=== PATIENT | male | born 1940 | race Caucasian/White ===

== ENCOUNTER 2017-01-21 10:51 | Inpatient (IN) ==
[2017-01-21] MEDS ORDERED: ASPIRIN 325 MG TABLET PO STA (12:02)
--- NOTE | 2017-01-21 12:15 | Emergency Department Note ---
Arrival - Arrival Chief Complaint: Chest Pain Stated Complaint: chest pain ED Nursing Triage Note: Pt c/o CP with SOB since last night. Pt also c/o fall on Saturday night with continued lower back pain. Pt is wearing a heart monitor that was placed . by Dr Hankins's office. Mode of Arrival: Wheelchair Limitations: No Limitations Source: Patient, RN Notes Reviewed Time Seen by Provider: 01/21/17 12:02 - History of Present Illness HPI Narrative: Patient is a 76-year-old white male routinely followed by Dr. Cameron Barbour who is seen today complaining of chest pain and shortness of breath. Chest pain is substernal and sharp. Patient states that he has been short of breath since last night. He has had multiple falls over the last 3-4 days. He states of the fall yesterday he did remember however in review of his old chart on 01/17 the patient had a fall which he did not remember. The patient is presently wearing a 30 day event monitor placed by Dr. Hankins's office. Patient also complains of some low back pain. Patient has a history of diabetes mellitus and hypertension. Patient complains of left lower extremity edema. Onset (ago): day(s) (1) Consistency: constant Severity: moderate Allergies/Adverse Reactions: Allergies Allergy/AdvReac Type Severity Reaction Status Date / Time morphine Allergy Unknown/Unable Verified 12/25/16 13:27 to obtain Home Medications: Home Medications Medication Instructions Recorded Confirmed Type Amlodipine Besylate [Amlodipine 5 mg PO DAILY 12/25/16 01/21/17 History Besylate] Apixaban [Eliquis] 5 mg PO BID 12/25/16 01/21/17 History Bumetanide [Bumetanide] 2 mg PO DAILY 12/25/16 01/21/17 History Lisinopril [Lisinopril] 40 mg PO DAILY 12/25/16 01/21/17 History Metformin HCl [Metformin HCl] 1,000 mg PO BID 12/25/16 01/21/17 History Omeprazole [Omeprazole] 20 mg PO QAM 12/25/16 01/21/17 History Oxybutynin Chloride [Oxybutynin 10 mg PO QAM 12/25/16 01/21/17 History Chloride ER] Potassium Chloride 10 meq PO DAILY 12/25/16 01/21/17 History Ascorbic Acid 500 mg PO DAILY 01/17/17 01/21/17 History Calcium Carbonate/Vitamin D3 1 each PO DAILY 01/17/17 01/21/17 History [Calcium 1,000 + D3 Caplet] Ferrous Sulfate 325 mg PO DAILY 01/17/17 01/21/17 History Magnesium Oxide [Magox 400] 800 mg PO BID 01/17/17 01/21/17 History Multivitamin (Centrum) [Centrum 1 tablet PO DAILY 01/17/17 01/21/17 History Tab] Nitroglycerin Sl Tab [Nitrostat] 0.4 mg SL Q5M PRN 01/17/17 01/21/17 History Tamsulosin HCl [Tamsulosin HCl] 0.4 mg PO DAILY 01/17/17 01/21/17 History metOLazone [Metolazone] 2.5 mg PO QAM 01/17/17 01/21/17 History Review of System - Review of System 12 point system: reviewed and no additional remarkable complaints except as stated - Review of System Constitutional: Absent: chills, fever Cardiovascular: Present: chest pain, dyspnea on exertion, edema Medical,Surgical,& Family Hx - Medical History Cardio: History of: Cardiac Dysrhythmia (a-fib), Hypertension Endocrine: History of: Diabetes Mellitus (NIDDM) Gastrointestinal: History of: GERD Musculoskeletal: History of: Back/Neck Problems (chronic back pain), Musculoskeletal Problems (arthritis) Hematology: History of: Blood Disorders (thrombocytopenia) - Surgical History HEENT Surgeries: Surgical HX of: Tonsilectomy & Adenoidectomy Abdominal Surgeries: Surgical HX of: Appendectomy Orthopedic Surgeries: Surgical HX of;: Orthopedic Surgery (back surgery 2013), Total Knee Replacement (bilateral 2009) - Family History Family History: Reports;: Family Heart Disease, Family Hypertension - Social History Smoking Status: Never smoker Exam Vital Signs: Vital Signs Temperature 96.9 F L 01/21/17 13:20 Pulse Rate 84 01/21/17 13:20 Respiratory Rate 18 01/21/17 13:20 Blood Pressure 114/68 01/21/17 13:20 O2 Sat by Pulse Oximetry 99 01/21/17 10:53 GENERAL: This is a well-nourished well-developed white male, chronically ill- appearing, in no apparent distress. VITAL SIGNS: Reviewed HEENT: Head is atraumatic and normocephalic. Pupils are equal round react to light. Extraocular movements are intact. Oropharynx is benign with moist mucous membranes. NECK: Neck is soft and supple without tenderness. There are no masses. There is no lymphadenopathy. LUNGS: Lungs are clear to auscultation. Chest rises symmetrically. There is no chest wall tenderness. CV: Heart is regular rate and rhythm without murmurs rubs or gallops. ABDOMEN: Abdomen is soft, nontender to palpation. There are no abdominal abnormal masses palpated. There is no organomegaly. Bowel sounds are present and active. SKIN: Skin is warm and dry. No rash. EXTREMITIES: Patient has full range of motion without tenderness. There is 2-3 + pitting pedal edema of left lower extremity. NEUROLOGIC: Awake alert and oriented 4. Cranial nerves II through XII are grossly intact. Motor is 5 over 5 in all extremities bilaterally. Course - Consultations Consultation #1: Discussed with Dr. Barbour. Patient will be admitted to their service. Initial orders written for him. He will assume patient's care upon arrival to the pop. Time: 14:58 Results - Labs CBC & BMP: 01/21/17 13:00 01/21/17 12:45 Lab Results: I have reviewed the patients labs - EKG EKG results: interpreted by ERMD - Impressions EKG: Supraventricular rhythm with a rate of 84, low voltage QRS, nonspecific ST- T wave changes. - Diagnostic Findings Procedure: Chest x-ray: image reviewed by me (No infiltrates, no pleural effusions.), X-ray: image reviewed by me (Lumbosacral spine x-ray: Severe DDD of lumbosacral spine with old fracture of L3 and old kyphoplasty.) Disposition Clinical Impression: Chest pain, History of syncope, Diabetes mellitus, Hypokalemia Case discussed with: patient, patient's family Disposition: Still a Patient Condition: Stable
--- NOTE | 2017-01-21 12:44 | XRay Report ---
XR chest 1V Indication: Chest pain, shortness of breath Comparison: 17 January 2017 Findings: The heart and mediastinum are normal in size and configuration. The pulmonary vascularity is normal in caliber. No lung infiltrates, effusions, pneumothorax or other abnormality is demonstrated. Impression: No acute cardiopulmonary disease. PROCEDURE INTERPRETED AT [facility] DEPARTMENT OF RADIOLOGY Final Report Signed by: Dr. Ever Castaneda
--- NOTE | 2017-01-21 12:48 | XRay Report ---
XR lumbar spine complete Indication: Back pain Comparison: 05 August 2015 Findings: Previous fracture with cemented fixation is present involving the L3 vertebra stable in appearance. No other fracture is seen. Vertebral body heights and alignment are normal. There is loss of disc space and degenerative change moderate at T12-L1. There is moderate disc height loss and degenerative changes at L2-3. Mild changes are present at other levels. Large amount of facet joint degenerative change is seen in the lower lumbar spine. Impression: Previous compression fracture and degenerative changes as described above. PROCEDURE INTERPRETED AT [facility] [place] DEPARTMENT OF RADIOLOGY Final Report Signed by: Dr. Ever Castaneda
[2017-01-21 13:06] LABS: Basophils % 0.7 % (0.0-0.8); Eosinophils # 0.1 10*3/uL (0.0-0.87); Eosinophils % 2.2 % (0.00-10.9); Hemoglobin 14.3 GM/DL (14.0-18.0); Immature Granulocytes % 0.4 %; Immature Granulocytes Absolute 0.02 #; Lymphocytes # 0.6 10*3/uL (1.4-4.0); Lymphocytes % 12.5 % (21.2-54.2); Mean Corpuscular HGB Conc 35.8 GM/DL (32-36); Mean Corpuscular Hemoglobin 33 PG (27-34); Mean Corpuscular Volume 91.3 FL (87-102); Mean Platelet Volume 10.1 FL (9.6-12.0); Monocytes # 0.6 10*3/uL (0.11-0.8); Monocytes % 14.1 % (1.7-12.7); Neutrophils # 3.2 10*3/uL (1.4-7.4); Neutrophils % 70.1 % (38.7-73.9); Red Blood Count 4.38 MC/CUMM (3.8-5.5); Red Cell Distribution Width 15.3 % (9.3-17.3)
[2017-01-21 13:07] LABS: Platelet Count 70 T/CUMM (130-400); White Blood Count 4.6 T/CUMM (4-12)
[2017-01-21 13:09] LABS: INR 1.4
[2017-01-21 13:34] LABS: Albumin 3.3 G/DL (3.4-5.0); Calcium 10.1 MG/DL (8.5-10.1); Osmolality,Calculated 285.8 MOS/KG (273-304); Potassium 3.1 MMOL/L (3.5-5.1); Total Protein 7.1 G/DL (6.4-8.3)
[2017-01-21] MEDS ORDERED: POTASSIUM CHLORIDE 20 MEQ TABLET PO STA (14:56)
--- NOTE | 2017-01-21 16:05 | Order Completion Report ---
See report scanned to EMR
[2017-01-21] MEDS ORDERED: POTASSIUM CHLORIDE 20 MEQ TABLET PO ONE (16:55)
[2017-01-21] MEDS ORDERED: ACETAMINOPHEN 325 MG TABLET PO PRN (17:29)
[2017-01-21] MEDS ORDERED: SODIUM CHLORIDE 0.9% 1,000 ML IV SCH (17:29)
[2017-01-21] MEDS ORDERED: ONDANSETRON 4 MG/2 ML VIAL IV PRN (17:29)
[2017-01-21] MEDS ORDERED: DEXTROSE 50% 25 GM/50 ML SYRINGE IV PRN (17:29)
[2017-01-21] MEDS ORDERED: GLUCAGON 1 MG VIAL IM PRN (17:29)
[2017-01-21] MEDS ORDERED: INFLUENZA VIRUS VACCINE 0.5 ML SYRINGE IM ONE (17:48)
[2017-01-21 18:26] LABS: Platelet Estimate Decreased; Poikilocytosis 1+; Tear Drop Cells Few
[2017-01-21 18:27] LABS: Burr Cells Few
--- NOTE | 2017-01-21 20:53 | Ultrasound Report ---
Exam: US venous doppler LE LT Indication: Leg pain and swelling Date: 01/21/2017 836 PM Technique: Boo scale Doppler with color flow with spectral broadening was performed in routine fashion of the lower extremities per routine protocol Findings: The left common femoral, superficial femoral, popliteal and proximal saphenous saphenous veins are patent with normal waveform phasicity and augmentation as well as complete vessel compressibility. There is no evidence of popliteal or Enamorado's cyst. Impression: No evidence of deep venous thrombosis within left lower extremity Ultrasound images were captured and stored. PROCEDURE INTERPRETED AT [facility] DEPARTMENT OF RADIOLOGY Final Report Signed by: Shanice Boo MD
[2017-01-21] MEDS: DOCUSATE SODIUM 100 MG CAPSULE PO SCH (22:14)
--- NOTE | 2017-01-22 07:14 | Family Practice History&Phys ---
Assessment and Plan (1) Syncope Status: Acute Assessment and plan: 01/22/2017: Monitor strip showed prolonged AZ interval, Current Visit: Yes (2) Chest pain Status: Acute Assessment and plan: 01/22/2017: [facility] will be consulted. Cardiac isoenzymes are normal thus far. There are no ischemic changes on his EKG. Current Visit: Yes History of Present Illness Chief complaint: Chest pain History of present illness: Mr. Hu is a 76 year old male Patient 76-year-old white male presented emergency room day of admission with left-sided chest pain. Patient states pain is sharp and a bit worse with deep breaths. Patient states he did have some shortness of breath associated with it but no nausea, vomiting or diaphoresis. States pain persisted until he arrived to the emergency room and halted shortly thereafter. Patient has no history of coronary artery disease. He has been seen at [facility] for recurring syncope. States his last episode was this past when he was walking in the home and found himself on the floor. He had no warning and he had no preceding chest pain or palpitations. Patient denies any chest pain at present except for some soreness in his left chest. He has no personal history of coronary artery disease but he does have positive family history in his father. Home Medications Medication Instructions Recorded Confirmed Type Amlodipine Besylate [Amlodipine 5 mg PO DAILY 12/25/16 01/21/17 History Besylate] Apixaban [Eliquis] 5 mg PO BID 12/25/16 01/21/17 History Bumetanide [Bumetanide] 2 mg PO DAILY 12/25/16 01/21/17 History Lisinopril [Lisinopril] 40 mg PO DAILY 12/25/16 01/21/17 History Metformin HCl [Metformin HCl] 1,000 mg PO BID 12/25/16 01/21/17 History Omeprazole [Omeprazole] 20 mg PO QAM 12/25/16 01/21/17 History Oxybutynin Chloride [Oxybutynin 10 mg PO QAM 12/25/16 01/21/17 History Chloride ER] Potassium Chloride 10 meq PO DAILY 12/25/16 01/21/17 History Ascorbic Acid 500 mg PO DAILY 01/17/17 01/21/17 History Calcium Carbonate/Vitamin D3 1 each PO DAILY 01/17/17 01/21/17 History [Calcium 1,000 + D3 Caplet] Ferrous Sulfate 325 mg PO DAILY 01/17/17 01/21/17 History Magnesium Oxide [Magox 400] 800 mg PO BID 01/17/17 01/21/17 History Multivitamin (Centrum) [Centrum 1 tablet PO DAILY 01/17/17 01/21/17 History Tab] Nitroglycerin Sl Tab [Nitrostat] 0.4 mg SL Q5M PRN 01/17/17 01/21/17 History Tamsulosin HCl [Tamsulosin HCl] 0.4 mg PO DAILY 01/17/17 01/21/17 History metOLazone [Metolazone] 2.5 mg PO QAM 01/17/17 01/21/17 History Allergies Allergy/AdvReac Type Severity Reaction Status Date / Time morphine Allergy Unknown/Unable Verified 12/25/16 13:27 to obtain - Constitutional Constitutional: Absent: chills, fatigue, fever(s) - EENT Eyes: Absent: blurry vision, loss of vision Ears: Absent: decreased hearing, ear pain Nose, mouth and throat: Absent: hoarseness, nasal congestion, sinus pressure, sore throat - Cardiovascular Cardiovascular: Present: chest pain at rest, dyspnea on exertion. Absent: orthopnea, palpitations, PND - Respiratory Respiratory: Present: dyspnea on exertion. Absent: cough, wheezing - Gastrointestinal Gastrointestinal: Absent: abdominal pain, diarrhea, dyspepsia, dysphagia, nausea , vomiting - Genitourinary Genitourinary: Absent: difficulty urinating, dysuria, urinary frequency - Musculoskeletal Musculoskeletal: Present: back pain - Neurological Neurological: Present: syncope. Absent: focal weakness, headache(s), numbness, paresthesias - Psychiatric Psychiatric: Absent: anxiety, confusion, depression - Endocrine Endocrine: Absent: fatigue, polydipsia, polyphagia - Hematologic/Lymphatic Hematologic/Lymphatic: Absent: easy bleeding, easy bruising Medical,Surgical,& Family Hx - Medical History Cardio: History of: Cardiac Dysrhythmia (a-fib), Hypertension Endocrine: History of: Diabetes Mellitus (NIDDM), Dyslipidemia Genitourinary: History of: Prostate Problems Gastrointestinal: History of: GERD Musculoskeletal: History of: Back/Neck Problems (chronic back pain), Musculoskeletal Problems (arthritis) Hematology: History of: Blood Disorders (thrombocytopenia) - Surgical History Cardiac Surgeries: Sugical HX of: Cardiac Catheterization HEENT Surgeries: Surgical HX of: Tonsilectomy & Adenoidectomy Abdominal Surgeries: Surgical HX of: Appendectomy Orthopedic Surgeries: Surgical HX of;: Orthopedic Surgery (back surgery 2013), Total Knee Replacement (bilateral 2009) - Family History Family History: Reports;: Family Heart Disease, Family Hypertension - Social History Smoking Status: Never smoker Exam - Constitutional Vitals: Period Temp Pulse Resp BP Sys/Arciniega Pulse Ox Last 24 Hr 96.9 F-98.8 F 63-87 18-20 114-139/65-81 98-99 Exam: General: Objective patient is a well-developed white male in no acute distress. He is articulate and able to give an excellent history. HEENT: Pupils equal and reactive to light. Patent nares and airway Neck: No meningismus, adenopathy, thyromegaly. There are no auscultated carotid bruits. Cardiovascular: Irregular rhythm. No murmurs or gallops. Monitor strip shows supraventricular rhythm with P waves present. His AZ interval was quite long Chest: Clear to auscultation without rales rhonchi wheezes. Abdomen: Soft nontender to palpation No masses, rebound, guarding or tenderness. Neuro: Cranial nerves intact and DTRs and strength symmetric in all extremities. Dermatologic: No evidence of abnormal lesions or masses. Musculoskeletal: There is no joint swelling or tenderness or deformity. He does not abrasion above his right knee. Extremities: There is no calf swelling or tenderness. Results - Labs CBC & BMP: 01/21/17 13:00 01/21/17 12:45 Lab Results: I have reviewed the past 24 hour labs - Impressions Patient started to have supraventricular rhythm. I cannot see a definite association between his P waves and his QRS appears to have third-degree AV block with junctional escape.
--- NOTE | 2017-01-22 08:11 | Cardiology Consult Note ---
Assessment and Plan - Time spent with patient Time spent with patient: Greater than 30 minutes (1) Arrhythmia Status: Acute Assessment and plan: SEE PLAN OF CARE LISTED BELOW Current Visit: Yes (2) Atrial fibrillation Status: Acute Assessment and plan: SEE PLAN OF CARE LISTED BELOW Current Visit: Yes (3) At high risk for falls Status: Chronic Assessment and plan: SEE PLAN OF CARE LISTED BELOW Current Visit: Yes (4) Hypertension Status: Chronic Assessment and plan: SEE PLAN OF CARE LISTED BELOW Current Visit: Yes (5) Dyslipidemia Status: Chronic Assessment and plan: SEE PLAN OF CARE LISTED BELOW Current Visit: Yes (6) Elevated bilirubin Status: Acute Assessment and plan: SEE PLAN OF CARE LISTED BELOW Current Visit: Yes (7) Thrombocytopenia Status: Chronic Assessment and plan: SEE PLAN OF CARE LISTED BELOW Current Visit: No (8) Chest pain Status: Acute Assessment and plan: SEE PLAN OF CARE LISTED BELOW Current Visit: Yes (9) Diabetes mellitus Status: Chronic Assessment and plan: SEE PLAN OF CARE LISTED BELOW Current Visit: Yes (10) Hypokalemia Status: Acute Assessment and plan: SEE PLAN OF CARE LISTED BELOW Current Visit: Yes (11) Syncope Status: Acute Assessment and plan: SEE PLAN OF CARE LISTED BELOW Current Visit: Yes History of Present Illness - Data of Consult Patient: known to practice within the last 3 years Consult date: 01/22/17 Requesting Physician: Letitia Baxter Primary care physician: Letitia Baxter - Consult Narrative Reason for consult: chest pain, near syncope, heart block History of present illness: CHARGE ACCOUNT AUTHORIZER: DR. PHILLIP PCP: DR. LETITIA BAXTER Mr. Hu, 76WM, has risk factors significant for: Hypertension, diabetes, dyslipidemia. History of sick sinus syndrome, obstructive sleep apnea ( compliant with device), atrial flutter (Eliquis for stroke prevention). Presented to the ED January 21, 2017 after experiencing left-sided chest pain while at rest. Chest pain is worse with certain movements and when taking a deep breath. Described as "sharp and stabbing" and "hurts so bad it takes my breath away." Rates the discomfort as a 7 on a scale of 1-10. Currently chest pain-free. Cardiac biomarkers negative, EKG does not reveal acute NM. Patient had frequent falls and presyncope. He has been followed by Dr. Phillip and RENNY Bass, outpatient for arrhythmias including AV block, atrial fibrillation. Last week, patient was worked into clinic and saw practitioner Montez for a syncopal episode when transitioning out of bed. Multiple medication adjustments were made including stopping flecainide, metolazone and Bumex. It was felt that he was volume depleted at that time. He had been wearing a Holter monitor which showed his average rate to be 47 bpm, minimum 31 bpm. Patient was put on a 30 day event monitor at that time. January 18, 2017 patient did have an arrhythmia which appears to be a possible third-degree AV block. (See event monitor in OMS). These were during sleep hours. Long-standing history of leukopenia, unspecified. History of acquired thrombocytopenia as well. Repeating labs this morning (bilirubin elevated). At this point, I will contact Maddie Hays RN, at [facility] to obtain any additional arrhythmias since January 18, 2017. Patient's last dose of Eliquis was Saturday. I will continue to hold this at this point. I have ordered labs this morning to include CBC, BMP, LFTs and d-dimer. Continue to monitor his telemetry. Patient may be candidate for permanent pacemaker implantation and this was discussed with patient. He is agreeable to undergo additional testing and treatment as needed. I will further discuss with Dr. Hoffman and await additional recommendations. IMPRESSION/PLAN: 1. ARRHYTHMIA - certainly patient is possibly entering the realm of sick sinus syndrome. Keeping patient n.p.o. to further discuss with Dr. Hoffman today. May eventually require pacemaker. 2. SYNCOPE, NEAR SYNCOPE - concerning this may be related to high degree AV block. Continue to monitor telemetry 3. CHEST PAIN - atypical for chest pain. Venous ultrasound negative for DVT. Adding d-dimer. However, appears to be musculoskeletal in nature. He does have recent frequent falls 4. DYSLIPIDEMIA - fasting lipid profile. Because elevated bilirubin, hold statin drugs 5. HYPERTENSION - adequately controlled. Obviously, avoiding jeremy blocking agents at this time 6. ATRIAL FIBRILLATION - patient may now be entering the room of sick sinus syndrome. Has been taking Eliquis and I will hold this right now 7. THROMBOCYTOPENIA - my understanding is this is long-standing history of thrombocytopenia (acquired). Stable contact obtain records from his primary care provider regarding additional information 8. ELEVATED BILIRUBIN - repeat LFT this morning. Will hold any hepatotoxic medications to include statin drugs. 9. HYPOKALEMIA - repeating labs this morning. Replace per protocol 10. SLEEP APNEA - compliant with device 11. DIABETES - sliding scale. CC: Letitia Baxter MD - Home Medications and Allergies Home Medications: Home Medications Medication Instructions Recorded Confirmed Type Amlodipine Besylate [Amlodipine 5 mg PO DAILY 12/25/16 01/21/17 History Besylate] Apixaban [Eliquis] 5 mg PO BID 12/25/16 01/21/17 History Bumetanide [Bumetanide] 2 mg PO DAILY 12/25/16 01/21/17 History Lisinopril [Lisinopril] 40 mg PO DAILY 12/25/16 01/21/17 History Metformin HCl [Metformin HCl] 1,000 mg PO BID 12/25/16 01/21/17 History Omeprazole [Omeprazole] 20 mg PO QAM 12/25/16 01/21/17 History Oxybutynin Chloride [Oxybutynin 10 mg PO QAM 12/25/16 01/21/17 History Chloride ER] Potassium Chloride 10 meq PO DAILY 12/25/16 01/21/17 History Ascorbic Acid 500 mg PO DAILY 01/17/17 01/21/17 History Calcium Carbonate/Vitamin D3 1 each PO DAILY 01/17/17 01/21/17 History [Calcium 1,000 + D3 Caplet] Ferrous Sulfate 325 mg PO DAILY 01/17/17 01/21/17 History Magnesium Oxide [Magox 400] 800 mg PO BID 01/17/17 01/21/17 History Multivitamin (Centrum) [Centrum 1 tablet PO DAILY 01/17/17 01/21/17 History Tab] Nitroglycerin Sl Tab [Nitrostat] 0.4 mg SL Q5M PRN 01/17/17 01/21/17 History Tamsulosin HCl [Tamsulosin HCl] 0.4 mg PO DAILY 01/17/17 01/21/17 History metOLazone [Metolazone] 2.5 mg PO QAM 01/17/17 01/21/17 History Allergies/Adverse Reactions: Allergies Allergy/AdvReac Type Severity Reaction Status Date / Time morphine Allergy Unknown/Unable Verified 12/25/16 13:27 to obtain Review of systems: REVIEW OF SYSTEMS: - Constitutional Constitutional: Present: Fatigue. Syncope, presyncope. Absent: anorexia, night sweats - EENT Eyes: Absent: blurry vision, loss of vision, diplopia Ears: Absent: decreased hearing, ear pain, ear discharge - Cardiovascular Cardiovascular: Present: chest pain with movement and deep breath. Sharp and stabbing. Takes his breath away. Chronic bilateral lower extremity edema. Denies palpitations. - Respiratory Respiratory: Present: FELIX, denies cough. Absent: wheezing, hemoptysis, change in phlegm color - Gastrointestinal Gastrointestinal: Denies: constipation. Absent: abdominal pain, hematemesis, hematochezia, melena, change in bowel habits, nausea - Genitourinary Genitourinary: Absent: difficulty urinating, dysuria, urinary hesitancy, flank pain - Musculoskeletal Musculoskeletal: Present: back pain Absent: joint swelling, muscle cramps, muscle weakness - Neurological Neurological: Present: Poor gait with frequent falls. General weakness. - Psychiatric Psychiatric: Absent: anxiety, depression, difficulty concentrating - Endocrine Endocrine: Present: fatigue. Absent: cold intolerance, heat intolerance, polyuria, polyphagia, polydipsia - Hematologic/Lymphatic Hematologic/Lymphatic: Present: easy bruising. Absent: easy bleeding -Integumentary Integumentary: Absent: lesions, rashes, skin breakdown Medical,Surgical,& Family Hx - Medical History Cardio: History of: Cardiac Dysrhythmia (a-fib), Hypertension No history of: CAD, NM, Pacemaker Endocrine: History of: Diabetes Mellitus (NIDDM), Dyslipidemia Genitourinary: History of: Prostate Problems Gastrointestinal: History of: GERD Musculoskeletal: History of: Back/Neck Problems (chronic back pain), Musculoskeletal Problems (arthritis) Hematology: History of: Blood Disorders (thrombocytopenia) - Surgical History Cardiac Surgeries: Sugical HX of: Cardiac Catheterization HEENT Surgeries: Surgical HX of: Tonsilectomy & Adenoidectomy Abdominal Surgeries: Surgical HX of: Appendectomy Orthopedic Surgeries: Surgical HX of;: Orthopedic Surgery (back surgery 2013), Total Knee Replacement (bilateral 2009) - Family History Family History: Reports;: Family Heart Disease, Family Hypertension - Social History Smoking Status: Never smoker Have you smoked in the last 12 months: No Frequency of Alcohol Use: None Type of Drug Use: None Physical Examination Vital Signs Temp Pulse Resp BP Pulse Ox 96.9 F L 84 18 114/68 99 01/21/17 10:53 01/21/17 10:53 01/21/17 10:53 01/21/17 10:53 01/21/17 10:53 Exam: General: [Appears well with no apparent distress.] [Pleasant and cooperative. ] [Appears comfortable.] HEENT: [PERRL, normocephalic, atraumatic. Mucous membranes moist. No jaundice noted. Conjunctiva moist and clear, sclerae anicteric] Neck: No obvious JVD/HJR, no thyromegaly or lymphadenopathy noted. No carotid bruit appreciated Cardiac: [Regular rate and rhythm.] [No obvious murmur rub or gallop.] Lungs: [Clear to auscultation without accessory muscle use to assist the respiratory pattern.] Oxygen in use via nasal cannula Abdomen: Soft, bowel sounds normoactive. Nontender and nondistended. No abdominal bruit or thrill noted. No masses noted. Musculoskeletal: No fluid collection. Decreased range of motion is noted. Extremities: No clubbing, cyanosis noted. [1+ bilateral lower extremity edema. ] Upper extremity pulses 2+. Lower extremity pulses 2+. Capillary refill less than 3 seconds. Skin: No unusual lesions or rashes. No skin breakdown appreciated. Neuro: Awake, alert and oriented 3. Moves all extremities well without hemiparesis or paralysis. No essential tremor is appreciated. Result/EKG - Labs CBC & BMP: 01/21/17 13:00 01/21/17 12:45 Lab Results: I have reviewed the past 24 hour labs Labs: Laboratory Results - last 24 hr 01/21/17 01/21/17 01/21/17 12:45 12:45 12:45 WBC RBC Hgb Hct MCV MCH MCHC RDW Plt Count MPV Neut % (Auto) Lymph % (Auto) Thayer % (Auto) Eos % (Auto) Baso % (Auto) Neut # (Auto) Lymph # (Auto) Thayer # (Auto) Eos # (Auto) Baso # (Auto) Immature Gran % Nucleated RBC % Immature Gran # Nucleated RBCs # Platelet Estimate Immature Plt Fraction Poikilocytosis Tear Drop Cells Harrison Cells INR 1.4 PT Patient/Control Mix 15.0 Circ Anticoag PTT 34.0 Sodium 137 Potassium 3.1 L Chloride 94 L Carbon Dioxide 33 H Anion Gap 13.1 BUN 40 H Creatinine 1.20 GFR Calculation 76 BUN/Creatinine Ratio 33.00 H Glucose 146 H POC Glucose Calculated Osmolality 285.8 Calcium 10.1 Total Bilirubin 3.00 H AST 110 H ALT 38 Alkaline Phosphatase 89 Troponin I < 0.015 Total Protein 7.1 Albumin 3.3 L Globulin 3.8 H Albumin/Globulin Ratio 0.8 L 01/21/17 01/21/17 01/21/17 13:00 16:07 17:41 WBC 4.6 D RBC 4.38 Hgb 14.3 Hct 40.0 L MCV 91.3 MCH 33 MCHC 35.8 RDW 15.3 Plt Count 70 L D MPV 10.1 Neut % (Auto) 70.1 Lymph % (Auto) 12.5 L Thayer % (Auto) 14.1 H Eos % (Auto) 2.2 Baso % (Auto) 0.7 Neut # (Auto) 3.2 Lymph # (Auto) 0.6 L Thayer # (Auto) 0.6 Eos # (Auto) 0.1 Baso # (Auto) 0.0 Immature Gran % 0.4 Nucleated RBC % 0.0 Immature Gran # 0.02 Nucleated RBCs # 0.00 Platelet Estimate Decreased Immature Plt Fraction 0.0 Poikilocytosis 1+ Tear Drop Cells Few Helio Cells Few INR PT Patient/Control Mix Circ Anticoag PTT Sodium Potassium Chloride Carbon Dioxide Anion Gap BUN Creatinine GFR Calculation BUN/Creatinine Ratio Glucose POC Glucose 144 H Calculated Osmolality Calcium Total Bilirubin AST ALT Alkaline Phosphatase Troponin I < 0.015 Total Protein Albumin Globulin Albumin/Globulin Ratio 01/21/17 01/21/17 01/22/17 20:07 21:12 07:39 WBC RBC Hgb Hct MCV MCH MCHC RDW Plt Count MPV Neut % (Auto) Lymph % (Auto) Thayer % (Auto) Eos % (Auto) Baso % (Auto) Neut # (Auto) Lymph # (Auto) Thayer # (Auto) Eos # (Auto) Baso # (Auto) Immature Gran % Nucleated RBC % Immature Gran # Nucleated RBCs # Platelet Estimate Immature Plt Fraction Poikilocytosis Tear Drop Cells Harrison Cells INR PT Patient/Control Mix Circ Anticoag PTT Sodium Potassium Chloride Carbon Dioxide Anion Gap BUN Creatinine GFR Calculation BUN/Creatinine Ratio Glucose POC Glucose 149 H 101 Calculated Osmolality Calcium Total Bilirubin AST ALT Alkaline Phosphatase Troponin I 0.016 Total Protein Albumin Globulin Albumin/Globulin Ratio - Diagnostic Findings Procedure: Chest x-ray: report reviewed by me, Ultrasound: report reviewed by me (Venous ultrasound BLE) - EKG EKG results: interpreted by me EKG shows: bradycardia, atrial fibrillation
[2017-01-22 08:25] LABS: Basophils % 0.6 % (0.0-0.8); Eosinophils # 0.1 10*3/uL (0.0-0.87); Eosinophils % 3.9 % (0.00-10.9); Hematocrit 38.5 VOL% (42.0-52.0); Hemoglobin 13.8 GM/DL (14.0-18.0); Immature Granulocytes % 0.3 %; Immature Granulocytes Absolute 0.01 #; Lymphocytes # 0.6 10*3/uL (1.4-4.0); Lymphocytes % 16.5 % (21.2-54.2); Mean Corpuscular HGB Conc 35.8 GM/DL (32-36); Mean Corpuscular Hemoglobin 33 PG (27-34); Mean Corpuscular Volume 90.6 FL (87-102); Mean Platelet Volume 10.5 FL (9.6-12.0); Monocytes # 0.5 10*3/uL (0.11-0.8); Monocytes % 15.9 % (1.7-12.7); Neutrophils # 2.1 10*3/uL (1.4-7.4); Neutrophils % 62.8 % (38.7-73.9); Red Blood Count 4.25 MC/CUMM (3.8-5.5); Red Cell Distribution Width 14.9 % (9.3-17.3); White Blood Count 3.3 T/CUMM (4-12)
[2017-01-22 08:27] LABS: Platelet Count 70 T/CUMM (130-400)
[2017-01-22 08:48] LABS: Band Neutrophils 1 % (0-10); Eosinophils 3 % (0-10); Hypochromasia 1+; Lymphocytes 22 % (20-55); Ovalocytes Slight; Platelet Estimate Decreased; Segmented Neutrophils 60 % (50-85); Total Cells Counted 100
[2017-01-22 08:55] LABS: Calcium 9.5 MG/DL (8.5-10.1); Free T4 (Free Thyroxine) 1.58 NG/DL (0.76-1.46); Magnesium 1.5 MG/DL (1.8-2.4); Osmolality,Calculated 281.7 MOS/KG (273-304); Risk Ratio 4.05; Thyroid Stimulating Hormone 2.22 uIU/ml (0.358-3.74)
[2017-01-22 10:03] LABS: Albumin 2.9 G/DL (3.4-5.0); Bilirubin,Direct 1.06 MG/DL (0.0-0.20); Bilirubin,Indirect 1.9 MG/DL (0.0-1.0); Total Protein 6.5 G/DL (6.4-8.3)
[2017-01-22] MEDS ORDERED: MAGNESIUM SULF RIDER 2 GM in PREMIX 1 EACH IV PRN (11:45)
[2017-01-22] MEDS ORDERED: MAGNESIUM SULF RIDER 4 GM in PREMIX 1 EACH IV PRN (11:45)
[2017-01-22] MEDS: POTASSIUM CHLORIDE RIDER 10 MEQ in PREMIX 1 EACH IV PRN ×5 (12:00→19:14)
--- NOTE | 2017-01-22 12:21 | Order Completion Report ---
See report scanned to EMR
--- NOTE | 2017-01-22 12:22 | Order Completion Report ---
See report scanned to EMR
[2017-01-22] MEDS ORDERED: ceFAZolin 1,000 MG VIAL IRRIG ONE (13:13)
--- NOTE | 2017-01-22 13:15 | History and Physical Update ---
Sedation H&P Update - History and Physical H&P was reviewed, the patient examined and there: are no changes in the patients condition since last H&P was completed. - Dictation Physical: refer to H&P completed by admitting physician - Physical Exam Mental Status: alert and oriented Heart: regular rate and rhythm, other (ramana) Lung: clear to auscultation Abdomen: within normal limits Vitals: within normal limits - Sedation Plan for Sedation: moderate Patient Consent: Procedure disscussed with patient and patinet has consented., Risks and benefits were discussed with patient,including infection,, bleeding, injury to surrounding structures, seizure, temporary nerve, Patient understands and accepts potential risks/benefits and agrees to ASA Class: III Airway Assessment: Class II: Soft palate, uvula, fauces visible
[2017-01-22] MEDS: PANTOPRAZOLE 40 MG TABLET PO SCH (13:50)
[2017-01-22] MEDS ORDERED: MIDAZOLAM 2 MG/2 ML VIAL ONE (13:51)
[2017-01-22] MEDS ORDERED: HEPARIN/NACL 0.9% 2 UNITS/ML 500 ML IV ONE (13:51)
[2017-01-22] MEDS ORDERED: fentaNYL 100 MCG/2 ML VIAL ONE (13:51)
[2017-01-22] MEDS ORDERED: LIDOCAINE 1% 20 ML VIAL ONE (13:51)
[2017-01-22] MEDS ORDERED: ceFAZolin 1,000 MG VIAL ONE (13:51)
[2017-01-22] MEDS ORDERED: TISSUE ADHESIVE 1 EACH APPLICATOR TOP ONE (15:16)
[2017-01-22] MEDS ORDERED: oxyCODONE/ACETAMINOPHEN 5-325 MG TABLET PO PRN (15:23)
--- NOTE | 2017-01-22 15:36 | Cardiac Pacemaker ---
- Preoperative diagnosis Date of Procedure:: 01/22/17 Preoperative Diagnosis: Documented nonreversible symptomatic bradycardia due to , sinus node dysfunction Pre-op Diagnosis: SSS/tachybrady, binodal disease Post-op diagnosis: same Procedure: PROCEDURE SUMMARY DDD pacemaker implant from left axillary vein access. PLAN Bed rest for 4 hours. Routine post pacemaker implant site care and activity restrictions. Do not remove pressure dressing until AM. Portable CXR, EKG stat. CXR PA/Lat, device interrogation in AM. Ancef 1g iv. q8h x2. PROCEDURE Informed consent was obtained and a timeout was performed prior to the procedure. The patient was continuously monitored by ECG, pulse oxymetry and NIBP. 1g iv. Ancef was administered prior to the procedure for antibiotic prophylaxis. Moderate conscious sedation was initiated and maintained with iv. Versed and Fentanyl, for 65 minutes. The left pectoral area was meticulously prepared with ChloroPrep surgical scrub. Sterile draping was applied and Ioban was used to cover the operation site. The image intensifier was draped with a sterile bag and positioned over the patient's chest. After infiltration with 1% lidocaine, an incision was made in the left infraclavicular area, parallel to the deltopectoral groove. The incision was carried down to the level of the pectoral fascia. A subcutaneous pocket was then created with electrocautery and blunt dissection. Hemostasis was then achieved with electrocautery. A micropuncture needle was used to access the left axillary vein under fluoroscopic guidance. The microfilament was used to introduce the micropuncture sheath, which then was used to introduce and advance a long hydrophylic guidewire into the inferior vena cava. A 9 Fr sheath was introduced over the guidewire. The dilator was removed. The right ventricular pacemaker lead was introduced through the sheath. The sheath was then peeled away. The curved stylet was used to move the lead into the right ventricular outflow tract. The stylet was then replaced with a straight stylet and the lead was moved into a stable position on the right ventricular septum. Adequate sensing and pacing threshold was confirmed. The active fixation mechanism was then deployed. Stable signal and pacing threshold was noted, with decrease in pacing impedance. No extracardiac stimulation was noted with high output pacing. The lead was then anchored to the subcutaneous tissue with 2-0 nonabsorbable suture, using the anchoring sleeve near the point of entry to the vein. Another 9 Fr sheath was introduced over the retained guidewire. The dilator was removed. The right atrial pacemaker lead was introduced through the sheath. The sheath was then peeled away. A straight stylet was used to move the lead into the right atrium. The stylet was then replaced with a curved J stylet and the lead was moved into a stable position in the right atrial appendage. Adequate sensing and pacing threshold was confirmed. The active fixation mechanism was then deployed. Stable signal and pacing threshold was noted, with decrease in pacing impedance. No extracardiac stimulation was noted with high output pacing. The lead was then anchored to the subcutaneous tissue with 2-0 nonabsorbable suture, using the anchoring sleeve near the point of entry to the vein. The retained guidewire was removed. The pacemaker generator was attached to the leads and sealed in the prescribed manner. The wound was flushed with Ancef . The generator was placed into the pocket and tied to the pectoral fascia using 2-0 nonabsorbable suture. Stable lead positions were confirmed with fluoroscopy. The wound was closed using a double layer of 2-0 absorbable Vicryl sutures, followed by a subcuticular running suture with 4-0 Monocryl, then Exofin. A sterile, then a pressure dressing was applied. The device was then interrogated and programmed as detailed below. The implanted system is MRI conditional. Device Type SN Location Med[employer]onic Advisa DR DDD pacemaker [id number] Left infraclavicular Lead Position Type SN P/R Threshold Impedance RA RA appendage Medtronic 5076-52 [id number] 1.7 mV 0.7 V @ 0.5 ms 660 Ohm RV RV septum Medtronic 5076-58 [id number] 5.3 mV 0.6 V @ 0.5 ms 788 Ohm Bradycardia settings DDD 60/130 Anesthesia: moderate conscious sedation Surgeon / Physician: Tono Hoffman Miniature Set Constructor: other (Chanelle Ortega) Estimated blood loss: minimal Specimens: none sent Condition: stable Disposition: floor - Medications / Follow-up
[2017-01-22] MEDS ORDERED: NITROGLYCERIN SL 0.4 MG TABLET SL PRN (15:39)
--- NOTE | 2017-01-22 16:20 | XRay Report ---
XR chest 1V portable Indication: Lead placement Comparison: Chest x-ray dated January 21, 2017 Technique: Single frontal view of the chest. Findings: Continued cardiomegaly. Interval placement of pacemaker apparatus within left chest. No belinda pulmonary edema. Osseous structures appear grossly unchanged. Skin folds project over right lung apex. IMPRESSION: As above. PROCEDURE INTERPRETED AT [facility] DEPARTMENT OF RADIOLOGY Final Report Signed by: Dr Huan Lozano
[2017-01-22] MEDS: DOCUSATE SODIUM 100 MG CAPSULE PO SCH ×2 (18:15→21:49)
[2017-01-22] MEDS ORDERED: POTASSIUM CHLORIDE RIDER 10 MEQ in PREMIX 1 EACH IV PRN (20:32)
[2017-01-22] MEDS: metFORMIN 500 MG TABLET PO SCH (21:48)
[2017-01-22] MEDS: MAGNESIUM OXIDE 400 MG TABLET PO SCH (21:49)
[2017-01-23] MEDS: POTASSIUM CHLORIDE RIDER 10 MEQ in PREMIX 1 EACH IV PRN ×2 (04:40→05:54)
[2017-01-23 06:09] LABS: Basophils % 0.6 % (0.0-0.8); Eosinophils # 0.1 10*3/uL (0.0-0.87); Eosinophils % 3.6 % (0.00-10.9); Hematocrit 38.1 VOL% (42.0-52.0); Hemoglobin 13.7 GM/DL (14.0-18.0); Immature Granulocytes % 0.6 %; Immature Granulocytes Absolute 0.02 #; Lymphocytes # 0.6 10*3/uL (1.4-4.0); Lymphocytes % 15.6 % (21.2-54.2); Mean Corpuscular Hemoglobin 32 PG (27-34); Mean Corpuscular Volume 89.9 FL (87-102); Monocytes # 0.5 10*3/uL (0.11-0.8); Monocytes % 13.1 % (1.7-12.7); Neutrophils # 2.4 10*3/uL (1.4-7.4); Neutrophils % 66.5 % (38.7-73.9); Red Blood Count 4.24 MC/CUMM (3.8-5.5); Red Cell Distribution Width 14.8 % (9.3-17.3); White Blood Count 3.6 T/CUMM (4-12)
[2017-01-23 06:16] LABS: Platelet Count 69 T/CUMM (130-400)
[2017-01-23 06:30] LABS: Hypochromasia Slight; Microcytosis 1+
[2017-01-23 06:43] LABS: Calcium 8.8 MG/DL (8.5-10.1); Osmolality,Calculated 273.1 MOS/KG (273-304); Potassium 3.2 MMOL/L (3.5-5.1)
[2017-01-23 06:48] LABS: Albumin 2.9 G/DL (3.4-5.0); Bilirubin,Direct 1.02 MG/DL (0.0-0.20); Bilirubin,Indirect 1.6 MG/DL (0.0-1.0); Bilirubin,Total 2.6 MG/DL (0.2-1.0); Total Protein 6.5 G/DL (6.4-8.3)
[2017-01-23 06:50] LABS: Magnesium 1.6 MG/DL (1.8-2.4); Potassium 3.2 MMOL/L (3.5-5.1)
--- NOTE | 2017-01-23 07:03 | Order Completion Report ---
See report scanned to EMR
--- NOTE | 2017-01-23 07:07 | Family Practice Progress Note ---
Family Practice - PN: Subj Interval history: Patient states he is feeling very well after his pacemaker placement yesterday. He denies any chest pain or shortness of breath. He is lying flat in the bed is certainly not dyspneic. His permanent pacemaker seems to be functioning fine on the monitor. Exam (Progress Note) - Constitutional Vitals: Period Temp Pulse Resp BP Sys/[place] Pulse Ox Last 24 Hr 97.6 F-998 F 65-100 16-20 105-164/61-101 95-98 Exam: Objective well-developed gentleman no acute distress. Is able give an excellent history. Cardiovascular: Heart rates regular without murmurs or gallops. Respiratory: Lungs clear to auscultation bilaterally. Patient had a postop chest x-ray that showed no evidence of pneumothorax. Abdomen: Soft and nontender to palpation. Results - Labs CBC & BMP: 01/23/17 05:10 01/23/17 05:10 Lab Results: I have reviewed the past 24 hour labs - Diagnostic Findings Procedure: Chest x-ray: report reviewed by me (No pneumothorax) Assessment and Plan (1) Syncope Status: Acute Assessment and plan: 01/22/2017: Monitor strip showed prolonged KS interval, 01/23/2017: Patient had permanent pacemaker placement yesterday for third-degree block. Current Visit: Yes (2) Chest pain Status: Acute Assessment and plan: 01/22/2017: CIS will be consulted. Cardiac isoenzymes are normal thus far. There are no ischemic changes on his EKG. 01/23/2017: Patient denies any chest pain this morning. Repeat cardiac isoenzymes are pending. Current Visit: Yes Quality Measures - VTE Contraindication to Pharmacological VTE Prophylaxis: High Risk of Bleeding
--- NOTE | 2017-01-23 07:44 | Cardiology Progress Note ---
Assessment and Plan (1) Sick sinus syndrome Status: Acute Assessment and plan: 76-year-old male, followed by Dr. Hankins. History of sick sinus, tachybradycardia , intermittent, high-grade AV block, syncope. 01/22/2017: Dual-chamber pacemaker implant -Follow-up chest x-ray, device interrogation. -If the studies are normal, he may be discharged home today, follow-up with Dr. Hoffman in 1 week. -Post pacemaker implant activity limitations and implant site care were discussed. -Increase potassium supplement to 40 mics a day. Cont Mg suppl. Check BMP/ magnesium in 1 week. Current Visit: Yes (2) High-grade atrioventricular block Status: Acute Current Visit: Yes (3) Hypertension Status: Chronic Current Visit: Yes (4) Dyslipidemia Status: Chronic Current Visit: Yes Cardiology - PN: Subj Interval history: He is feeling fine after dual-chamber pacemaker placement. Atrial paced rhythm. Chest x-ray, device interrogation pending. Telemetry: Normal device function. No atrial fibrillation. He still hypokalemic. Removed pressure dressing, no hematoma. Dressing dry, intact He is feeling fine. No chest pain, shortness of breath, syncope. Exam (Progress Note) - Constitutional Vitals: Period Temp Pulse Resp BP Sys/Arciniega Pulse Ox Last 24 Hr 97.6 F-998 F 65-100 16-20 105-164/61-101 95-98 General appearance: no acute distress, morbidly obese - Head Head exam: Present: normal inspection, normocephalic - Eye Eye exam: Absent: conjunctival injection, scleral icterus Pupils: Absent: dilated - ENT ENT exam: Present: normal external ear exam - Neck Neck exam: Present: normal inspection - Respiratory Respiratory exam: Present: clear to auscultation bilaterally. Absent: chest wall tenderness - Cardiovascular Cardiovascular exam: Present: regular rate and rhythm. Absent: JVD, systolic murmur - GI/Abdominal GI/Abdominal exam: Present: normal bowel sounds. Absent: distended - Extremities Exam Extremities exam: Present: normal inspection, normal capillary refill. Absent: edema - Back Exam Back exam: Present: normal inspection - Neurological Exam Neurological exam: Present: alert, oriented X3 - Psychiatric Psychiatric exam: Present: normal affect, normal mood - Skin Skin exam: Present: normal color, warm, other (Dressing dry, intact, no hematoma ). Absent: cyanosis Result/EKG - Labs CBC & BMP: 01/23/17 05:10 01/23/17 05:10 Lab Results: I have reviewed the past 24 hour labs Labs: Laboratory Results - last 24 hr 01/22/17 01/22/17 01/22/17 07:39 08:09 08:09 WBC 3.3 L RBC 4.25 Hgb 13.8 L Hct 38.5 L MCV 90.6 MCH 33 MCHC 35.8 RDW 14.9 Plt Count 70 L MPV 10.5 Neut % (Auto) 62.8 Lymph % (Auto) 16.5 L [place] % (Auto) 15.9 H Eos % (Auto) 3.9 Baso % (Auto) 0.6 Neut # (Auto) 2.1 Lymph # (Auto) 0.6 L [place] # (Auto) 0.5 Eos # (Auto) 0.1 Baso # (Auto) 0.0 Total Counted 100 Immature Gran % 0.3 Nucleated RBC % 0.0 Immature Gran # 0.01 Segmented Neutrophils 60 Band Neutrophils 1 Lymphocytes 22 Monocytes 14 Eosinophils 3 Nucleated RBCs # 0.00 Platelet Estimate Decreased Immature Plt Fraction 2.2 Hypochromasia 1+ Microcytosis Ovalocytes Slight Morphology Comment D-Dimer, Quantitative Sodium 138 Potassium 3.0 L Chloride 94 L Carbon Dioxide 39 H Anion Gap 8.0 BUN 32 H Creatinine 1.00 GFR Calculation 97 BUN/Creatinine Ratio 32.00 H Glucose 103 POC Glucose 101 Calculated Osmolality 281.7 Calcium 9.5 Magnesium 1.5 L Total Bilirubin Direct Bilirubin Indirect Bilirubin AST ALT Alkaline Phosphatase Total Protein Albumin Triglycerides 95 Cholesterol 158 LDL Cholesterol 102.0 VLDL Cholesterol 19.0 HDL Cholesterol 39 L Heart Disease Risk Ratio 4.05 Free T4 1.58 H TSH 3rd Generation 2.220 01/22/17 01/22/17 01/22/17 08:09 08:20 21:57 WBC RBC Hgb Hct MCV MCH MCHC RDW Plt Count MPV Neut % (Auto) Lymph % (Auto) [place] % (Auto) Eos % (Auto) Baso % (Auto) Neut # (Auto) Lymph # (Auto) [place] # (Auto) Eos # (Auto) Baso # (Auto) Total Counted Immature Gran % Nucleated RBC % Immature Gran # Segmented Neutrophils Band Neutrophils Lymphocytes Monocytes Eosinophils Nucleated RBCs # Platelet Estimate Immature Plt Fraction Hypochromasia Microcytosis Ovalocytes Morphology Comment D-Dimer, Quantitative 1.9 Sodium Potassium Chloride Carbon Dioxide Anion Gap BUN Creatinine GFR Calculation BUN/Creatinine Ratio Glucose POC Glucose 149 H Calculated Osmolality Calcium Magnesium Total Bilirubin 3.00 H Direct Bilirubin 1.060 H Indirect Bilirubin 1.9 H AST 100 H ALT 36 Alkaline Phosphatase 88 Total Protein 6.5 Albumin 2.9 L Triglycerides Cholesterol LDL Cholesterol VLDL Cholesterol HDL Cholesterol Heart Disease Risk Ratio Free T4 TSH 3rd Generation 01/22/17 01/23/17 01/23/17 22:49 05:10 05:10 WBC RBC Hgb Hct MCV MCH MCHC RDW Plt Count MPV Neut % (Auto) Lymph % (Auto) [place] % (Auto) Eos % (Auto) Baso % (Auto) Neut # (Auto) Lymph # (Auto) [place] # (Auto) Eos # (Auto) Baso # (Auto) Total Counted Immature Gran % Nucleated RBC % Immature Gran # Segmented Neutrophils Band Neutrophils Lymphocytes Monocytes Eosinophils Nucleated RBCs # Platelet Estimate Immature Plt Fraction Hypochromasia Microcytosis Ovalocytes Morphology Comment D-Dimer, Quantitative Sodium 135 L Potassium 3.4 L 3.2 L Chloride 96 L Carbon Dioxide 31 Anion Gap 11.2 BUN 27 H Creatinine 1.00 GFR Calculation 97 BUN/Creatinine Ratio 27.00 H Glucose 86 POC Glucose Calculated Osmolality 273.1 Calcium 8.8 Magnesium Total Bilirubin 2.60 H Direct Bilirubin 1.020 H Indirect Bilirubin 1.6 H AST 93 H ALT 33 Alkaline Phosphatase 87 Total Protein 6.5 Albumin 2.9 L Triglycerides Cholesterol LDL Cholesterol VLDL Cholesterol HDL Cholesterol Heart Disease Risk Ratio Free T4 TSH 3rd Generation 01/23/17 01/23/17 05:10 05:10 WBC 3.6 L RBC 4.24 Hgb 13.7 L Hct 38.1 L MCV 89.9 MCH 32 MCHC 36.0 RDW 14.8 Plt Count 69 L MPV 10.0 Neut % (Auto) 66.5 Lymph % (Auto) 15.6 L [place] % (Auto) 13.1 H Eos % (Auto) 3.6 Baso % (Auto) 0.6 Neut # (Auto) 2.4 Lymph # (Auto) 0.6 L [place] # (Auto) 0.5 Eos # (Auto) 0.1 Baso # (Auto) 0.0 Total Counted Immature Gran % 0.6 Nucleated RBC % 0.0 Immature Gran # 0.02 Segmented Neutrophils Band Neutrophils Lymphocytes Monocytes Eosinophils Nucleated RBCs # 0.00 Platelet Estimate Immature Plt Fraction 2.3 Hypochromasia Slight Microcytosis 1+ Ovalocytes Morphology Comment D-Dimer, Quantitative Sodium 136 Potassium 3.2 L Chloride 96 L Carbon Dioxide 33 H Anion Gap 10.2 BUN 28 H Creatinine 1.00 GFR Calculation 97 BUN/Creatinine Ratio 28.00 H Glucose 84 POC Glucose Calculated Osmolality 276.0 Calcium 9.0 Magnesium 1.6 L Total Bilirubin Direct Bilirubin Indirect Bilirubin AST ALT Alkaline Phosphatase Total Protein Albumin Triglycerides Cholesterol LDL Cholesterol VLDL Cholesterol HDL Cholesterol Heart Disease Risk Ratio Free T4 TSH 3rd Generation - EKG EKG results: interpreted by me Quality Measures - VTE Contraindication to Pharmacological VTE Prophylaxis: High Risk of Bleeding
--- NOTE | 2017-01-23 07:48 | XRay Report ---
XR chest 2V Indication: Lead placement Comparison: 22 January 2017 Findings: The heart and mediastinum are stable in size and configuration. In Pacemaker device is unchanged in position. The pulmonary vascularity is normal in caliber. No lung infiltrates, effusions, pneumothorax or other abnormality is demonstrated. Impression: No acute findings or significant changes. PROCEDURE INTERPRETED AT [facility] DEPARTMENT OF RADIOLOGY Final Report Signed by: Dr. Ever Castaneda
[2017-01-23] MEDS ORDERED: NON-FORMULARY MEDICATION (Omeprazole [Omeprazole] 20 MG) PO SCH (09:00)
[2017-01-23] MEDS ORDERED: metOLazone 2.5 MG TABLET PO SCH (09:00)
[2017-01-23] MEDS ORDERED: amLODIPine 5 MG TABLET PO SCH (09:00)
[2017-01-23] MEDS ORDERED: TAMSULOSIN 0.4 MG CAPSULE PO SCH (09:00)
[2017-01-23] MEDS ORDERED: MULTIVITAMIN (CENTRUM) TABLET PO SCH (09:00)
[2017-01-23] MEDS ORDERED: FERROUS SULFATE 325 MG TABLET PO SCH (09:00)
[2017-01-23] MEDS ORDERED: OXYBUTYNIN XL 10 MG TABLET PO SCH (09:00)
[2017-01-23] MEDS ORDERED: BUMETANIDE 1 MG TABLET PO SCH (09:00)
[2017-01-23] MEDS ORDERED: CALCIUM (CARBONATE)/VITAMIN D 500 MG-200 UNIT TABLET PO SCH (09:00)
[2017-01-23] MEDS ORDERED: LISINOPRIL 20 MG TABLET PO SCH (09:00)
[2017-01-23] MEDS ORDERED: POTASSIUM CHLORIDE 10 MEQ TABLET PO SCH ×2 (09:00)
[2017-01-23] MEDS ORDERED: ASCORBIC ACID 500 MG TABLET PO SCH (09:00)
[2017-01-23] MEDS: DOCUSATE SODIUM 100 MG CAPSULE PO SCH (09:44)
[2017-01-23] MEDS: PANTOPRAZOLE 40 MG TABLET PO SCH (09:45)
[2017-01-23] MEDS: MAGNESIUM OXIDE 400 MG TABLET PO SCH (09:46)
[2017-01-23] MEDS: metFORMIN 500 MG TABLET PO SCH (09:59)
[2017-01-23] MEDS ORDERED: DEXTROSE 50% 25 GM/50 ML VIAL IV PRN (11:00)
[2017-01-23 12:03] VITALS: BP 135/75
--- NOTE | 2017-01-23 13:02 | Discharge Summary ---
Hospital Course - Hospital Course Hospital Course: Patient is 76-year-old gentleman presented emergency room with history of chest pain and recurrent syncope. Patient told me had 3 episodes of syncope in the preceding week. Patient states she has no warning with these events he just wakes up on the floor. Patient was noted to have a third-degree AV block on monitor strips and I saw him the morning after admission. Cardiology was consulted and he underwent permanent pacemaker placement on 01/22/2017. Patient is feeling much better now be discharged home today. Diagnosis - Discharge Diagnosis (1) Syncope Status: Acute (2) Chest pain Status: Acute Specialty Discharge - Follow Up or Referrals Follow up with: Tono Hoffman MD [Physician] - 1 Week (Follow up in clinic with Dr. Hoffman in 1 week for pacer & wound check. Needs EKG, BMP, magnesium also.) Discharge Plan - Discharge Data Disposition: Disch To Home/Self Care Condition at Discharge: Stable Discharge Diet: advance to your usual diet Activity: resume usual activities as tolerated Hygiene: no restrictions Weight Bearing at Discharge: full weight bearing Contact your physician if you experience:: fever over 101 - Discharge Medications Continue Oxybutynin Chloride [Oxybutynin Chloride ER] 10 mg PO QAM Omeprazole 20 mg PO QAM Lisinopril 40 mg PO DAILY Bumetanide 2 mg PO DAILY Apixaban [Eliquis] 5 mg PO BID Tamsulosin HCl 0.4 mg PO DAILY Ferrous Sulfate 325 mg PO DAILY Magnesium Oxide [Magox 400] 800 mg PO BID Multivitamin (Centrum) [Centrum Tab] 1 tablet PO DAILY Potassium Chloride 10 meq PO DAILY Metformin HCl 1,000 mg PO BID Amlodipine Besylate 5 mg PO DAILY metOLazone [Metolazone] 2.5 mg PO QAM Ascorbic Acid 500 mg PO DAILY Calcium Carbonate/Vitamin D3 [Calcium 1,000 + D3 Caplet] 1 each PO DAILY Nitroglycerin Sl Tab [Nitrostat] 0.4 mg SL Q5M PRN PRN Reason: Chest Pain - Follow Up or Referral Follow Up: Tono Hoffman MD [Physician] - 1 Week (Follow up in clinic with Dr. Hoffman in 1 week for pacer & wound check. Needs EKG, BMP, magnesium also.) - Forms/Instructions Exam - Constitutional Vitals: Period Temp Pulse Resp BP Sys/Arciniega Pulse Ox Last 24 Hr 97.6 F-98.7 F 65-100 16-20 105-164/61-101 95-98 Exam: Objective well-developed gentleman no acute distress. Is able give an excellent history. Cardiovascular: Heart rates regular without murmurs or gallops. Respiratory: Lungs clear to auscultation bilaterally. Patient had a postop chest x-ray that showed no evidence of pneumothorax. Abdomen: Soft and nontender to palpation. Discharge Results Labs on day of discharge: Labs from last 24 hours 01/23/17 01/23/17 01/23/17 05:10 05:10 05:10 WBC 3.6 L RBC 4.24 Hgb 13.7 L Hct 38.1 L MCV 89.9 MCH 32 MCHC 36.0 RDW 14.8 Plt Count 69 L MPV 10.0 Neut % (Auto) 66.5 Lymph % (Auto) 15.6 L [place] % (Auto) 13.1 H Eos % (Auto) 3.6 Baso % (Auto) 0.6 Neut # (Auto) 2.4 Lymph # (Auto) 0.6 L [place] # (Auto) 0.5 Eos # (Auto) 0.1 Baso # (Auto) 0.0 Immature Gran % 0.6 Nucleated RBC % 0.0 Immature Gran # 0.02 Nucleated RBCs # 0.00 Immature Plt Fraction 2.3 Hypochromasia Slight Microcytosis 1+ Sodium 136 Potassium 3.2 L Chloride 96 L Carbon Dioxide 33 H Anion Gap 10.2 BUN 28 H Creatinine 1.00 GFR Calculation 97 BUN/Creatinine Ratio 28.00 H Glucose 84 POC Glucose Calculated Osmolality 276.0 Calcium 9.0 Magnesium 1.6 L Total Bilirubin 2.60 H Direct Bilirubin 1.020 H Indirect Bilirubin 1.6 H AST 93 H ALT 33 Alkaline Phosphatase 87 Troponin I Total Protein 6.5 Albumin 2.9 L 01/23/17 01/23/17 01/22/17 05:10 05:08 22:49 WBC RBC Hgb Hct MCV MCH MCHC RDW Plt Count MPV Neut % (Auto) Lymph % (Auto) [place] % (Auto) Eos % (Auto) Baso % (Auto) Neut # (Auto) Lymph # (Auto) [place] # (Auto) Eos # (Auto) Baso # (Auto) Immature Gran % Nucleated RBC % Immature Gran # Nucleated RBCs # Immature Plt Fraction Hypochromasia Microcytosis Sodium 135 L Potassium 3.2 L 3.4 L Chloride 96 L Carbon Dioxide 31 Anion Gap 11.2 BUN 27 H Creatinine 1.00 GFR Calculation 97 BUN/Creatinine Ratio 27.00 H Glucose 86 POC Glucose Calculated Osmolality 273.1 Calcium 8.8 Magnesium Total Bilirubin Direct Bilirubin Indirect Bilirubin AST ALT Alkaline Phosphatase Troponin I 0.078 H D Total Protein Albumin 01/22/17 21:57 WBC RBC Hgb Hct MCV MCH MCHC RDW Plt Count MPV Neut % (Auto) Lymph % (Auto) [place] % (Auto) Eos % (Auto) Baso % (Auto) Neut # (Auto) Lymph # (Auto) [place] # (Auto) Eos # (Auto) Baso # (Auto) Immature Gran % Nucleated RBC % Immature Gran # Nucleated RBCs # Immature Plt Fraction Hypochromasia Microcytosis Sodium Potassium Chloride Carbon Dioxide Anion Gap BUN Creatinine GFR Calculation BUN/Creatinine Ratio Glucose POC Glucose 149 H Calculated Osmolality Calcium Magnesium Total Bilirubin Direct Bilirubin Indirect Bilirubin AST ALT Alkaline Phosphatase Troponin I Total Protein Albumin DS: Provider Date of admission: 01/21/17 15:00 Primary care physician: . No PCP Attending physician on admission: Cameron Barbour MD Consults: 01/21/17 17:29 Consult to Case Mgmt/Social Srvs [CONS] Routine Reason for Case Mgmt/Social Srvs: Discharge Planning Consult to Physician [CONS] Routine Comment: known to you with chest pain and syncope Consulting Provider: Steven Hankins Person Notified: Emanuel Date Notified: 01/22/17 Time Notified: 07:45 Discharging clinician: Cameron Barbour MD Expected date of discharge: 01/23/17
--- NOTE | 2017-01-23 20:19 | Order Completion Report ---
See report scanned to EMR
--- NOTE | 2017-01-23 21:27 | Order Completion Report ---
See report scanned to EMR
== END 2017-01-23 15:30 | disposition home or self-care (01) | DRG 244 ==
LOC: N.ED 10:51 → N.EDINP 15:00 → N.TELES 16:14
PROVIDERS: ADMIT Family Medicine; ATTEND Family Medicine

== ENCOUNTER 2017-05-30 13:01 | Inpatient (IN) ==
[2017-05-30] MEDS ORDERED: ONDANSETRON 4 MG/2 ML VIAL IV PRN (13:12)
[2017-05-30] MEDS ORDERED: ACETAMINOPHEN 325 MG TABLET PO PRN (13:12)
[2017-05-30] MEDS ORDERED: GLUCAGON 1 MG VIAL IM PRN (13:12)
[2017-05-30] MEDS ORDERED: DEXTROSE 50% 25 GM/50 ML VIAL IV PRN (13:12)
[2017-05-30] MEDS ORDERED: VANCOMYCIN INJ 1,000 MG in SODIUM CHLORIDE 0.9% 250 ML IV SCH (13:30)
[2017-05-30] MEDS ORDERED: NITROGLYCERIN SL 0.4 MG TABLET SL PRN (15:12)
[2017-05-30 16:56] LABS: Basophils % 0.3 % (0.0-0.8); Eosinophils # 0.1 10*3/uL (0.0-0.87); Eosinophils % 2.7 % (0.00-10.9); Hematocrit 32.8 VOL% (42.0-52.0); Hemoglobin 11.2 GM/DL (14.0-18.0); Immature Granulocytes % 0.3 %; Immature Granulocytes Absolute 0.01 #; Lymphocytes # 0.4 10*3/uL (1.4-4.0); Lymphocytes % 14.4 % (21.2-54.2); Mean Corpuscular HGB Conc 34.1 GM/DL (32-36); Mean Corpuscular Hemoglobin 32 PG (27-34); Mean Corpuscular Volume 93.2 FL (87-102); Mean Platelet Volume 9.7 FL (9.6-12.0); Monocytes # 0.4 10*3/uL (0.11-0.8); Monocytes % 14.4 % (1.7-12.7); Neutrophils % 67.9 % (38.7-73.9); Platelet Count 106 T/CUMM (130-400); Red Blood Count 3.52 MC/CUMM (3.8-5.5); Red Cell Distribution Width 13.4 % (9.3-17.3); White Blood Count 2.9 T/CUMM (4-12)
[2017-05-30] MEDS: CIPROFLOXACIN INJ 400 MG in PREMIX 1 EACH IV SCH (17:18)
[2017-05-30] MEDS: SODIUM CHLORIDE 0.45% 1,000 ML IV SCH (17:20)
[2017-05-30 18:00] LABS: Albumin 2.6 G/DL (3.4-5.0); Bilirubin,Total 0.9 MG/DL (0.2-1.0); Calcium 8.7 MG/DL (8.5-10.1); Potassium 3.6 MMOL/L (3.5-5.1); Total Protein 6.7 G/DL (6.4-8.3)
[2017-05-30] MEDS: INSULIN LISPRO 100 UNIT/ML SUBCUT SCH ×2 (18:13→21:46)
[2017-05-30 20:07] LABS: Apearance,Urine CLEAR (Clear); Bilirubin,Urine Negative (Negative); Blood, Urine Negative (Negative); Glucose,Urine (UA) Negative (Negative); Hyaline Casts,Urine 10 /LPF (0-3); Ketones,Urine Negative (Negative); Mucus,Urine Occasional /LPF (Occasional); Nitrite,Urine Negative (Negative); Protein,Urine Negative; Urine Color Yellow (Yellow); Urine Specific Gravity 1.009 (1.001-1.035); Urine Urobilinogen < 2.0 EU/DL (0.2-1.0)
[2017-05-30] MEDS: VANCOMYCIN INJ 1,500 MG in SODIUM CHLORIDE 0.9% 500 ML IV SCH (20:26)
[2017-05-30] MEDS ORDERED: ENOXAPARIN 40 MG/0.4 ML SYRINGE SUBCUT SCH (21:00)
[2017-05-30] MEDS: MAGNESIUM OXIDE 400 MG TABLET PO SCH (21:46)
[2017-05-30] MEDS: DOCUSATE SODIUM 100 MG CAPSULE PO SCH (21:46)
[2017-05-31] MEDS: CIPROFLOXACIN INJ 400 MG in PREMIX 1 EACH IV SCH ×2 (04:31→20:40)
[2017-05-31] MEDS: INSULIN LISPRO 100 UNIT/ML SUBCUT SCH ×4 (09:10→20:47)
[2017-05-31] MEDS: LISINOPRIL 20 MG TABLET PO SCH (09:11)
[2017-05-31] MEDS: PANTOPRAZOLE 40 MG TABLET PO SCH (09:11)
[2017-05-31] MEDS: ASCORBIC ACID 500 MG TABLET PO SCH (09:11)
[2017-05-31] MEDS: BUMETANIDE 1 MG TABLET PO SCH (09:11)
[2017-05-31] MEDS: metOLazone 2.5 MG TABLET PO SCH (09:11)
[2017-05-31] MEDS: MULTIVITAMIN (CENTRUM) TABLET PO SCH (09:12)
[2017-05-31] MEDS: CALCIUM (CARBONATE)/VITAMIN D 500 MG-200 UNIT TABLET PO SCH (09:12)
[2017-05-31] MEDS: DOCUSATE SODIUM 100 MG CAPSULE PO SCH ×2 (09:12→20:45)
[2017-05-31] MEDS: MAGNESIUM OXIDE 400 MG TABLET PO SCH ×2 (09:12→20:44)
[2017-05-31] MEDS: amLODIPine 5 MG TABLET PO SCH (09:12)
[2017-05-31] MEDS: OXYBUTYNIN XL 10 MG TABLET PO SCH (09:12)
[2017-05-31] MEDS: TAMSULOSIN 0.4 MG CAPSULE PO SCH (09:12)
[2017-05-31] MEDS: POTASSIUM CHLORIDE 20 MEQ TABLET PO SCH (09:12)
[2017-05-31] MEDS: VANCOMYCIN INJ 1,500 MG in SODIUM CHLORIDE 0.9% 500 ML IV SCH (09:18)
[2017-05-31] MEDS: SODIUM CHLORIDE 0.45% 1,000 ML IV SCH (09:18)
[2017-05-31] MEDS: APIXABAN 5 MG TABLET PO SCH ×2 (10:20→20:45)
[2017-05-31] MEDS ORDERED: FAMOTIDINE 20 MG/2 ML VIAL IV ONE (13:06)
[2017-06-01] MEDS: SODIUM CHLORIDE 0.45% 1,000 ML IV SCH ×3 (00:49→20:47)
[2017-06-01] MEDS: PANTOPRAZOLE 40 MG TABLET PO SCH (09:11)
[2017-06-01] MEDS: DOCUSATE SODIUM 100 MG CAPSULE PO SCH ×2 (09:11→20:40)
[2017-06-01] MEDS: LISINOPRIL 20 MG TABLET PO SCH (09:11)
[2017-06-01] MEDS: MULTIVITAMIN (CENTRUM) TABLET PO SCH (09:11)
[2017-06-01] MEDS: metOLazone 2.5 MG TABLET PO SCH (09:11)
[2017-06-01] MEDS: POTASSIUM CHLORIDE 20 MEQ TABLET PO SCH (09:12)
[2017-06-01] MEDS: amLODIPine 5 MG TABLET PO SCH (09:12)
[2017-06-01] MEDS: OXYBUTYNIN XL 10 MG TABLET PO SCH (09:12)
[2017-06-01] MEDS: ASCORBIC ACID 500 MG TABLET PO SCH (09:12)
[2017-06-01] MEDS: metFORMIN 500 MG TABLET PO SCH ×2 (09:12→15:59)
[2017-06-01] MEDS: BUMETANIDE 1 MG TABLET PO SCH (09:12)
[2017-06-01] MEDS: CALCIUM (CARBONATE)/VITAMIN D 500 MG-200 UNIT TABLET PO SCH (09:12)
[2017-06-01] MEDS: MAGNESIUM OXIDE 400 MG TABLET PO SCH ×2 (09:12→20:40)
[2017-06-01] MEDS: TAMSULOSIN 0.4 MG CAPSULE PO SCH (09:12)
[2017-06-01] MEDS: APIXABAN 5 MG TABLET PO SCH ×2 (09:13→20:40)
[2017-06-01] MEDS: CIPROFLOXACIN INJ 400 MG in PREMIX 1 EACH IV SCH ×2 (09:13→20:44)
[2017-06-01] MEDS: INSULIN LISPRO 100 UNIT/ML SUBCUT SCH ×4 (09:13→20:36)
[2017-06-02 04:39] LABS: Basophils % 0.7 % (0.0-0.8); Eosinophils # 0.1 10*3/uL (0.0-0.87); Eosinophils % 2.1 % (0.00-10.9); Hematocrit 30.7 VOL% (42.0-52.0); Hemoglobin 10.6 GM/DL (14.0-18.0); Immature Granulocytes % 0.3 %; Immature Granulocytes Absolute 0.01 #; Lymphocytes # 0.5 10*3/uL (1.4-4.0); Mean Corpuscular HGB Conc 34.5 GM/DL (32-36); Mean Corpuscular Hemoglobin 31 PG (27-34); Mean Corpuscular Volume 90.8 FL (87-102); Mean Platelet Volume 9.2 FL (9.6-12.0); Monocytes # 0.5 10*3/uL (0.11-0.8); Monocytes % 16.7 % (1.7-12.7); Neutrophils # 1.8 10*3/uL (1.4-7.4); Neutrophils % 63.2 % (38.7-73.9); Platelet Count 107 T/CUMM (130-400); Red Blood Count 3.38 MC/CUMM (3.8-5.5); Red Cell Distribution Width 13.2 % (9.3-17.3); White Blood Count 2.9 T/CUMM (4-12)
[2017-06-02 05:09] LABS: Magnesium 1.6 MG/DL (1.8-2.4); Osmolality,Calculated 268.1 MOS/KG (273-304); Potassium 3.3 MMOL/L (3.5-5.1)
[2017-06-02 05:28] LABS: Band Neutrophils 11 % (0-10); Eosinophils 2 % (0-10); Lymphocytes 11 % (20-55); Segmented Neutrophils 68 % (50-85); Total Cells Counted 100
[2017-06-02 05:29] LABS: Anisocytosis 1+; Poikilocytosis 1+
[2017-06-02] MEDS ORDERED: MAGNESIUM HYDROXIDE SUSP 30 ML UDCUP PO PRN (06:48)
[2017-06-02] MEDS ORDERED: POTASSIUM CHLORIDE RIDER 20 MEQ in PREMIX 1 EACH IV PRN (08:31)
[2017-06-02] MEDS: POTASSIUM CHLORIDE 20 MEQ TABLET PO SCH (08:40)
[2017-06-02] MEDS: SODIUM CHLORIDE 0.45% 1,000 ML IV SCH (08:41)
[2017-06-02] MEDS: CALCIUM (CARBONATE)/VITAMIN D 500 MG-200 UNIT TABLET PO SCH (08:41)
[2017-06-02] MEDS: MAGNESIUM OXIDE 400 MG TABLET PO SCH ×2 (08:41→21:16)
[2017-06-02] MEDS: BUMETANIDE 1 MG TABLET PO SCH (08:42)
[2017-06-02] MEDS: DOCUSATE SODIUM 100 MG CAPSULE PO SCH ×2 (08:42→21:16)
[2017-06-02] MEDS: LISINOPRIL 20 MG TABLET PO SCH (08:42)
[2017-06-02] MEDS: OXYBUTYNIN XL 10 MG TABLET PO SCH (08:42)
[2017-06-02] MEDS: amLODIPine 5 MG TABLET PO SCH (08:43)
[2017-06-02] MEDS: TAMSULOSIN 0.4 MG CAPSULE PO SCH (08:43)
[2017-06-02] MEDS: metOLazone 2.5 MG TABLET PO SCH (08:43)
[2017-06-02] MEDS: ASCORBIC ACID 500 MG TABLET PO SCH (08:43)
[2017-06-02] MEDS: metFORMIN 500 MG TABLET PO SCH ×2 (08:43→16:36)
[2017-06-02] MEDS: MULTIVITAMIN (CENTRUM) TABLET PO SCH (08:44)
[2017-06-02] MEDS: PANTOPRAZOLE 40 MG TABLET PO SCH (08:44)
[2017-06-02] MEDS: KETOROLAC 15 MG/1 ML VIAL IV SCH ×2 (08:44→21:08)
[2017-06-02] MEDS: CIPROFLOXACIN INJ 400 MG in PREMIX 1 EACH IV SCH ×2 (08:46→21:07)
[2017-06-02] MEDS: INSULIN LISPRO 100 UNIT/ML SUBCUT SCH ×4 (08:47→20:30)
[2017-06-02] MEDS ORDERED: MAGNESIUM SULF RIDER 1 GM in PREMIX 1 EACH IV ONE (10:00)
[2017-06-02] MEDS ORDERED: POTASSIUM CHLORIDE INJ 40 MEQ in SODIUM CHLORIDE 0.9% 500 ML IV ONE (15:00)
[2017-06-03] MEDS: POTASSIUM CHLORIDE RIDER 10 MEQ in PREMIX 1 EACH IV PRN ×2 (01:51)
[2017-06-03] MEDS: SODIUM CHLORIDE 0.45% 1,000 ML IV SCH ×3 (04:26→23:20)
[2017-06-03] MEDS: INSULIN LISPRO 100 UNIT/ML SUBCUT SCH ×4 (10:13→20:15)
[2017-06-03] MEDS: cefTRIAXone 2,000 MG in SYRINGE 1 EACH IV SCH (10:16)
[2017-06-03] MEDS: ASCORBIC ACID 500 MG TABLET PO SCH (10:19)
[2017-06-03] MEDS: MAGNESIUM OXIDE 400 MG TABLET PO SCH ×2 (10:19→20:16)
[2017-06-03] MEDS: metFORMIN 500 MG TABLET PO SCH ×2 (10:20→16:34)
[2017-06-03] MEDS: amLODIPine 5 MG TABLET PO SCH (10:21)
[2017-06-03] MEDS: MULTIVITAMIN (CENTRUM) TABLET PO SCH (10:22)
[2017-06-03] MEDS: CALCIUM (CARBONATE)/VITAMIN D 500 MG-200 UNIT TABLET PO SCH (10:22)
[2017-06-03] MEDS: PANTOPRAZOLE 40 MG TABLET PO SCH (10:22)
[2017-06-03] MEDS: metOLazone 2.5 MG TABLET PO SCH (10:22)
[2017-06-03] MEDS: POTASSIUM CHLORIDE 20 MEQ TABLET PO SCH (10:23)
[2017-06-03] MEDS: LISINOPRIL 20 MG TABLET PO SCH (10:24)
[2017-06-03] MEDS: TAMSULOSIN 0.4 MG CAPSULE PO SCH (10:24)
[2017-06-03] MEDS: DOCUSATE SODIUM 100 MG CAPSULE PO SCH ×2 (10:25→20:17)
[2017-06-03] MEDS: OXYBUTYNIN XL 10 MG TABLET PO SCH (10:25)
[2017-06-03] MEDS: BUMETANIDE 1 MG TABLET PO SCH (10:25)
[2017-06-04] MEDS ORDERED: FAMOTIDINE 20 MG TABLET PO ONE (07:00)
[2017-06-04] MEDS ORDERED: DIAZEPAM 5 MG TABLET PO ONE (07:00)
[2017-06-04] MEDS: INSULIN LISPRO 100 UNIT/ML SUBCUT SCH ×3 (08:36→17:06)
[2017-06-04] MEDS ORDERED: TOBRAMYCIN 1.2 GM VIAL TOP ONE ×4 (09:22→11:16)
[2017-06-04] MEDS ORDERED: VANCOMYCIN 1,000 MG VIAL ONE ×2 (09:24→10:42)
[2017-06-04] MEDS: LACTATED RINGERS 1,000 ML IV SCH ×2 (10:10→13:47)
[2017-06-04] MEDS ORDERED: cefTRIAXone 1,000 MG VIAL ONE (10:33)
[2017-06-04] MEDS: cefTRIAXone 2,000 MG in SYRINGE 1 EACH IV SCH (10:35)
[2017-06-04] MEDS ORDERED: ROPIVACAINE 0.5% 30 ML VIAL ONE (11:56)
[2017-06-04] MEDS ORDERED: MEPERIDINE 25 MG/1 ML VIAL IV PRN (12:00)
[2017-06-04] MEDS: HYDROmorphone 2 MG/1 ML VIAL IV PRN ×2 (12:00→12:10)
[2017-06-04] MEDS ORDERED: ONDANSETRON 4 MG/2 ML VIAL ONE ×2 (12:01→12:21)
[2017-06-04] MEDS ORDERED: HYDROmorphone 2 MG/1 ML VIAL ONE (12:01)
[2017-06-04] MEDS ORDERED: PROPOFOL 200 MG/20 ML VIAL IV ONE (12:20)
[2017-06-04] MEDS ORDERED: DESFLURANE 1 UNIT/15 MINUTE INH ONE (12:21)
[2017-06-04] MEDS ORDERED: NEOSTIGMINE 10 MG/10 ML VIAL ONE (12:21)
[2017-06-04] MEDS ORDERED: ROCURONIUM 100 MG/10 ML VIAL IV ONE (12:21)
[2017-06-04] MEDS ORDERED: fentaNYL 100 MCG/2 ML VIAL ONE (12:21)
[2017-06-04] MEDS ORDERED: PHENYLEPHRINE 10 MG/1 ML VIAL IV ONE (12:21)
[2017-06-04] MEDS ORDERED: GLYCOPYRROLATE 0.4 MG/2 ML VIAL ONE (12:21)
[2017-06-04] MEDS ORDERED: ONDANSETRON 4 MG/2 ML VIAL IV PRN (12:22)
[2017-06-04] MEDS: metFORMIN 500 MG TABLET PO SCH ×2 (13:46→17:18)
[2017-06-04] MEDS: amLODIPine 5 MG TABLET PO SCH (14:40)
[2017-06-04] MEDS: OXYBUTYNIN XL 10 MG TABLET PO SCH (14:40)
[2017-06-04] MEDS: CALCIUM (CARBONATE)/VITAMIN D 500 MG-200 UNIT TABLET PO SCH (14:40)
[2017-06-04] MEDS: BUMETANIDE 1 MG TABLET PO SCH (14:40)
[2017-06-04] MEDS: MAGNESIUM OXIDE 400 MG TABLET PO SCH ×2 (14:40→20:54)
[2017-06-04] MEDS: PANTOPRAZOLE 40 MG TABLET PO SCH (14:44)
[2017-06-04] MEDS: DOCUSATE SODIUM 100 MG CAPSULE PO SCH ×2 (14:45→20:54)
[2017-06-04] MEDS: MULTIVITAMIN (CENTRUM) TABLET PO SCH (14:45)
[2017-06-04] MEDS: ASCORBIC ACID 500 MG TABLET PO SCH (14:45)
[2017-06-04] MEDS: POTASSIUM CHLORIDE 20 MEQ TABLET PO SCH (14:45)
[2017-06-04] MEDS: metOLazone 2.5 MG TABLET PO SCH (14:45)
[2017-06-04] MEDS: TAMSULOSIN 0.4 MG CAPSULE PO SCH (14:46)
[2017-06-04] MEDS: LISINOPRIL 20 MG TABLET PO SCH (14:46)
[2017-06-04] MEDS: SODIUM CHLORIDE 0.45% 1,000 ML IV SCH (20:54)
[2017-06-04] MEDS: MEPERIDINE 25 MG/1 ML VIAL IV PRN (20:57)
[2017-06-05] MEDS: MEPERIDINE 25 MG/1 ML VIAL IV PRN (04:15)
[2017-06-05] MEDS: INSULIN LISPRO 100 UNIT/ML SUBCUT SCH ×4 (08:03→22:17)
[2017-06-05 09:05] LABS: Basophils % 0.2 % (0.0-0.8); Eosinophils % 0.4 % (0.00-10.9); Hematocrit 28.9 VOL% (42.0-52.0); Hemoglobin 10.4 GM/DL (14.0-18.0); Immature Granulocytes % 0.2 %; Immature Granulocytes Absolute 0.01 #; Lymphocytes # 0.3 10*3/uL (1.4-4.0); Lymphocytes % 7.3 % (21.2-54.2); Mean Corpuscular Hemoglobin 32 PG (27-34); Mean Corpuscular Volume 88.4 FL (87-102); Monocytes # 0.5 10*3/uL (0.11-0.8); Monocytes % 10.6 % (1.7-12.7); Neutrophils # 3.7 10*3/uL (1.4-7.4); Neutrophils % 81.3 % (38.7-73.9); Platelet Count 102 T/CUMM (130-400); Red Blood Count 3.27 MC/CUMM (3.8-5.5); Red Cell Distribution Width 13.4 % (9.3-17.3); White Blood Count 4.5 T/CUMM (4-12)
[2017-06-05 09:29] LABS: Band Neutrophils 1 % (0-10); Eosinophils 1 % (0-10); Hypochromasia 1+; Lymphocytes 2 % (20-55); Platelet Estimate Decreased; Segmented Neutrophils 84 % (50-85); Total Cells Counted 100
[2017-06-05 09:30] LABS: Giant Platelets Few; Microcytosis Slight; Ovalocytes Slight
[2017-06-05] MEDS: metFORMIN 500 MG TABLET PO SCH ×2 (09:37→17:25)
[2017-06-05] MEDS: DOCUSATE SODIUM 100 MG CAPSULE PO SCH ×2 (09:38→22:19)
[2017-06-05] MEDS: CALCIUM (CARBONATE)/VITAMIN D 500 MG-200 UNIT TABLET PO SCH (09:38)
[2017-06-05] MEDS: BUMETANIDE 1 MG TABLET PO SCH (09:38)
[2017-06-05] MEDS: MULTIVITAMIN (CENTRUM) TABLET PO SCH (09:38)
[2017-06-05] MEDS: OXYBUTYNIN XL 10 MG TABLET PO SCH (09:38)
[2017-06-05] MEDS: amLODIPine 5 MG TABLET PO SCH (09:38)
[2017-06-05] MEDS: POTASSIUM CHLORIDE 20 MEQ TABLET PO SCH (09:39)
[2017-06-05] MEDS: metOLazone 2.5 MG TABLET PO SCH (09:39)
[2017-06-05] MEDS: LISINOPRIL 20 MG TABLET PO SCH (09:39)
[2017-06-05] MEDS: TAMSULOSIN 0.4 MG CAPSULE PO SCH (09:39)
[2017-06-05] MEDS: cefTRIAXone 2,000 MG in SYRINGE 1 EACH IV SCH (09:39)
[2017-06-05] MEDS: ASCORBIC ACID 500 MG TABLET PO SCH (09:39)
[2017-06-05] MEDS: MAGNESIUM OXIDE 400 MG TABLET PO SCH ×2 (09:39→22:19)
[2017-06-05] MEDS: PANTOPRAZOLE 40 MG TABLET PO SCH (09:39)
[2017-06-05] MEDS: SODIUM CHLORIDE 0.45% 1,000 ML IV SCH (19:30)
[2017-06-06] MEDS: SODIUM CHLORIDE 0.45% 1,000 ML IV SCH (05:13)
[2017-06-06] MEDS: INSULIN LISPRO 100 UNIT/ML SUBCUT SCH (08:24)
[2017-06-06] MEDS: MAGNESIUM OXIDE 400 MG TABLET PO SCH (08:26)
[2017-06-06] MEDS: POTASSIUM CHLORIDE 20 MEQ TABLET PO SCH (08:26)
[2017-06-06] MEDS: LISINOPRIL 20 MG TABLET PO SCH (08:27)
[2017-06-06] MEDS: metFORMIN 500 MG TABLET PO SCH (08:27)
[2017-06-06] MEDS: CALCIUM (CARBONATE)/VITAMIN D 500 MG-200 UNIT TABLET PO SCH (08:27)
[2017-06-06] MEDS: OXYBUTYNIN XL 10 MG TABLET PO SCH (08:27)
[2017-06-06] MEDS: BUMETANIDE 1 MG TABLET PO SCH (08:27)
[2017-06-06] MEDS: DOCUSATE SODIUM 100 MG CAPSULE PO SCH (08:27)
[2017-06-06] MEDS: PANTOPRAZOLE 40 MG TABLET PO SCH (08:28)
[2017-06-06] MEDS: metOLazone 2.5 MG TABLET PO SCH (08:28)
[2017-06-06] MEDS: TAMSULOSIN 0.4 MG CAPSULE PO SCH (08:28)
[2017-06-06] MEDS: MULTIVITAMIN (CENTRUM) TABLET PO SCH (08:28)
[2017-06-06] MEDS: ASCORBIC ACID 500 MG TABLET PO SCH (08:28)
[2017-06-06] MEDS: amLODIPine 5 MG TABLET PO SCH (08:28)
[2017-06-06] MEDS ORDERED: APIXABAN 5 MG TABLET PO SCH (09:00)
[2017-06-06] MEDS ORDERED: FERROUS SULFATE 325 MG TABLET PO SCH (09:00)
[2017-06-06] MEDS ORDERED: POTASSIUM CHLORIDE 20 MEQ TABLET PO SCH (09:00)
[2017-06-06] MEDS ORDERED: NON-FORMULARY MEDICATION (Metformin Hcl [Metformin Hcl] 1,000 MG) PO SCH (09:00)
[2017-06-06] MEDS ORDERED: METOPROLOL TARTRATE 25 MG TABLET PO SCH (09:00)
[2017-06-06] MEDS: cefTRIAXone 2,000 MG in SYRINGE 1 EACH IV SCH (09:58)
[2017-06-06] MEDS ORDERED: TUBERCULIN SKIN TEST 0.1 ML SYRINGE INTRADERM ONE (10:00)
[2017-06-06 13:03] VITALS: BP 95/55
[2017-06-06] MEDS ORDERED: TAMSULOSIN 0.4 MG CAPSULE PO SCH (21:00)
== END 2017-06-06 13:31 | DRG 464 ==
LOC: N.2E 14:23
PROVIDERS: ADMIT Family Medicine; ATTEND Family Medicine

== ENCOUNTER 2017-08-15 05:30 | Inpatient (IN) ==
[2017-08-15] MEDS ORDERED: ceFAZolin 1,000 MG VIAL ONE (06:10)
[2017-08-15] MEDS ORDERED: VANCOMYCIN 1,000 MG VIAL ONE (06:10)
[2017-08-15] MEDS ORDERED: ceFAZolin 1,000 MG in SYRINGE 1 EACH IV ONE (06:30)
[2017-08-15] MEDS ORDERED: VANCOMYCIN INJ 1,000 MG in SODIUM CHLORIDE 0.9% 250 ML IV ONE (06:30)
[2017-08-15] MEDS ORDERED: LACTATED RINGERS 1,000 ML IV SCH (07:00)
[2017-08-15 07:26] LABS: Apearance,Urine CLEAR (Clear); Bacteria,Urine Occasional /HPF (Few); Bilirubin,Urine Negative (Negative); Blood, Urine Negative (Negative); Glucose,Urine (UA) Negative (Negative); Ketones,Urine Negative (Negative); Mucus,Urine Occasional /LPF (Occasional); Nitrite,Urine Negative (Negative); Protein,Urine Negative; RBC,Urine <1 /HPF (0-4); Urine Color Yellow (Yellow); Urine Specific Gravity 1.009 (1.001-1.035); Urine Urobilinogen < 2.0 EU/DL (0.2-1.0); WBC,Urine <1 /HPF (0-6)
[2017-08-15] MEDS ORDERED: ROPIVACAINE 0.5% 30 ML VIAL ONE (09:22)
[2017-08-15] MEDS ORDERED: PROMETHAZINE 25 MG/1 ML VIAL IM PRN (10:03)
[2017-08-15] MEDS ORDERED: LACTULOSE 20 GM/30 ML UDCUP PO PRN (10:03)
[2017-08-15] MEDS ORDERED: TEMAZEPAM 7.5 MG CAPSULE PO PRN (10:03)
[2017-08-15] MEDS ORDERED: ONDANSETRON 4 MG/2 ML VIAL IV PRN (10:03)
[2017-08-15] MEDS ORDERED: BISACODYL 10 MG SUPP RECTAL PRN (10:03)
[2017-08-15] MEDS ORDERED: diphenhydrAMINE CAP 25 MG CAPSULE PO PRN (10:03)
[2017-08-15] MEDS ORDERED: MAGNESIUM HYDROXIDE SUSP 30 ML UDCUP PO PRN (10:03)
[2017-08-15] MEDS ORDERED: MEPERIDINE 50 MG/1 ML VIAL IM PRN ×2 (10:09→10:32)
[2017-08-15] MEDS ORDERED: NALOXONE 0.4 MG/ML VIAL IV PRN (10:09)
[2017-08-15] MEDS ORDERED: NITROGLYCERIN SL 0.4 MG TABLET SL PRN (10:10)
[2017-08-15] MEDS ORDERED: DEXTROSE 50% 25 GM/50 ML VIAL IV PRN (10:12)
[2017-08-15] MEDS ORDERED: GLUCAGON 1 MG VIAL IM PRN (10:12)
[2017-08-15] MEDS ORDERED: ACETAMINOPHEN 1,000 MG/100 ML VIAL IV ONE (12:08)
[2017-08-15] MEDS ORDERED: fentaNYL 100 MCG/2 ML VIAL ONE (12:08)
[2017-08-15] MEDS ORDERED: ROCURONIUM 100 MG/10 ML VIAL IV ONE (12:08)
[2017-08-15] MEDS ORDERED: ONDANSETRON 4 MG/2 ML VIAL ONE (12:08)
[2017-08-15] MEDS ORDERED: DESFLURANE 1 UNIT/15 MINUTE INH ONE (12:08)
[2017-08-15] MEDS ORDERED: PROPOFOL 200 MG/20 ML VIAL IV ONE (12:08)
[2017-08-15] MEDS ORDERED: GLYCOPYRROLATE 0.4 MG/2 ML VIAL ONE (12:22)
[2017-08-15] MEDS ORDERED: NEOSTIGMINE 10 MG/10 ML VIAL ONE (12:22)
[2017-08-15] MEDS: MEPERIDINE PCA 300 MG/30 ML SYRINGE IV SCH (12:26)
[2017-08-15] MEDS: INSULIN REGULAR 100 UNIT/ML SUBCUT SCH ×3 (12:28→21:58)
[2017-08-15] MEDS: ceFAZolin 2,000 MG in PREMIX 1 EACH IV SCH (14:29)
[2017-08-15] MEDS: LACTATED RINGERS 1,000 ML IV SCH (14:44)
[2017-08-15] MEDS ORDERED: DOCUSATE SODIUM 100 MG CAPSULE PO SCH (21:00)
[2017-08-15] MEDS: DOCUSATE SODIUM 100 MG CAPSULE PO SCH (21:58)
[2017-08-15] MEDS: METOPROLOL TARTRATE 25 MG TABLET PO SCH (21:58)
[2017-08-15] MEDS: MAGNESIUM OXIDE 400 MG TABLET PO SCH (21:58)
[2017-08-15] MEDS: TAMSULOSIN 0.4 MG CAPSULE PO SCH (21:58)
[2017-08-15] MEDS: POTASSIUM CHLORIDE 20 MEQ TABLET PO SCH (21:58)
[2017-08-15] MEDS: metFORMIN 500 MG TABLET PO SCH (21:59)
[2017-08-16] MEDS: ceFAZolin 2,000 MG in PREMIX 1 EACH IV SCH (01:43)
[2017-08-16] MEDS ORDERED: ceFAZolin 2,000 MG in PREMIX 1 EACH IV SCH (02:00)
[2017-08-16 06:29] LABS: Basophils % 0.3 % (0.0-0.8); Eosinophils % 1.2 % (0.00-10.9); Hematocrit 25.3 VOL% (42.0-52.0); Hemoglobin 9.1 GM/DL (14.0-18.0); Immature Granulocytes % 0.6 %; Immature Granulocytes Absolute 0.02 #; Lymphocytes # 0.4 10*3/uL (1.4-4.0); Lymphocytes % 10.6 % (21.2-54.2); Mean Corpuscular Hemoglobin 32 PG (27-34); Mean Corpuscular Volume 87.5 FL (87-102); Mean Platelet Volume 9.3 FL (9.6-12.0); Monocytes # 0.5 10*3/uL (0.11-0.8); Monocytes % 13.2 % (1.7-12.7); Neutrophils # 2.5 10*3/uL (1.4-7.4); Neutrophils % 74.1 % (38.7-73.9); Platelet Count 94 T/CUMM (130-400); Red Blood Count 2.89 MC/CUMM (3.8-5.5); Red Cell Distribution Width 16.6 % (9.3-17.3); White Blood Count 3.4 T/CUMM (4-12)
[2017-08-16 06:56] LABS: Calcium 8.3 MG/DL (8.5-10.1); Osmolality,Calculated 281.8 MOS/KG (273-304); Potassium 4.4 MMOL/L (3.5-5.1)
[2017-08-16 06:58] LABS: Eosinophils 2 % (0-10); Giant Platelets Few; Hypochromasia 1+; Lymphocytes 15 % (20-55); Ovalocytes Slight; Platelet Estimate Decreased; Segmented Neutrophils 72 % (50-85); Total Cells Counted 100
[2017-08-16] MEDS: INSULIN REGULAR 100 UNIT/ML SUBCUT SCH ×4 (08:39→21:12)
[2017-08-16] MEDS: BUMETANIDE 1 MG TABLET PO SCH (09:42)
[2017-08-16] MEDS: metOLazone 2.5 MG TABLET PO SCH (09:49)
[2017-08-16] MEDS: MAGNESIUM OXIDE 400 MG TABLET PO SCH ×2 (09:50→21:10)
[2017-08-16] MEDS: CALCIUM (CARBONATE)/VITAMIN D 500 MG-200 UNIT TABLET PO SCH (09:50)
[2017-08-16] MEDS: DOCUSATE SODIUM 100 MG CAPSULE PO SCH ×2 (09:50→21:11)
[2017-08-16] MEDS: ASCORBIC ACID 500 MG TABLET PO SCH (09:50)
[2017-08-16] MEDS: metFORMIN 500 MG TABLET PO SCH ×2 (09:51→21:10)
[2017-08-16] MEDS: MULTIVITAMIN (CENTRUM) TABLET PO SCH (09:52)
[2017-08-16] MEDS: POTASSIUM CHLORIDE 20 MEQ TABLET PO SCH ×2 (09:52→21:11)
[2017-08-16] MEDS: METOPROLOL TARTRATE 25 MG TABLET PO SCH ×2 (09:52→21:11)
[2017-08-16] MEDS: LISINOPRIL 20 MG TABLET PO SCH (09:52)
[2017-08-16] MEDS: TAMSULOSIN 0.4 MG CAPSULE PO SCH ×2 (09:52→21:11)
[2017-08-16] MEDS: amLODIPine 5 MG TABLET PO SCH (09:52)
[2017-08-16] MEDS: PANTOPRAZOLE 40 MG TABLET PO SCH (09:52)
[2017-08-16] MEDS ORDERED: ACETAMINOPHEN 325 MG TABLET PO PRN (10:04)
[2017-08-16] MEDS: FERROUS SULFATE 325 MG TABLET PO SCH (10:26)
[2017-08-16] MEDS: APIXABAN 5 MG TABLET PO SCH ×2 (10:26→21:11)
[2017-08-16] MEDS: LACTATED RINGERS 1,000 ML IV SCH (16:19)
[2017-08-16] MEDS: MEPERIDINE PCA 300 MG/30 ML SYRINGE IV SCH (17:37)
[2017-08-17 04:28] LABS: Basophils % 0.3 % (0.0-0.8); Eosinophils % 1.1 % (0.00-10.9); Hematocrit 23.3 VOL% (42.0-52.0); Hemoglobin 8.5 GM/DL (14.0-18.0); Immature Granulocytes % 0.3 %; Immature Granulocytes Absolute 0.01 #; Lymphocytes # 0.3 10*3/uL (1.4-4.0); Lymphocytes % 7.1 % (21.2-54.2); Mean Corpuscular HGB Conc 36.5 GM/DL (32-36); Mean Corpuscular Hemoglobin 32 PG (27-34); Mean Corpuscular Volume 86.6 FL (87-102); Mean Platelet Volume 9.5 FL (9.6-12.0); Monocytes # 0.5 10*3/uL (0.11-0.8); Monocytes % 13.1 % (1.7-12.7); NRBC # 0.02 10*3/uL; Neutrophils # 2.9 10*3/uL (1.4-7.4); Neutrophils % 78.1 % (38.7-73.9); Platelet Count 100 T/CUMM (130-400); Red Blood Count 2.69 MC/CUMM (3.8-5.5); Red Cell Distribution Width 16.5 % (9.3-17.3); White Blood Count 3.7 T/CUMM (4-12)
[2017-08-17 04:57] LABS: Potassium 3.9 MMOL/L (3.5-5.1)
[2017-08-17 05:31] LABS: Band Neutrophils 2 % (0-10); Eosinophils 2 % (0-10); Lymphocytes 16 % (20-55); Platelet Estimate Decreased; Segmented Neutrophils 77 % (50-85); Total Cells Counted 100
[2017-08-17] MEDS: MULTIVITAMIN (CENTRUM) TABLET PO SCH (08:44)
[2017-08-17] MEDS: POTASSIUM CHLORIDE 20 MEQ TABLET PO SCH ×2 (08:44→21:05)
[2017-08-17] MEDS: metFORMIN 500 MG TABLET PO SCH ×2 (08:44→21:05)
[2017-08-17] MEDS: INSULIN REGULAR 100 UNIT/ML SUBCUT SCH ×4 (08:44→21:05)
[2017-08-17] MEDS: amLODIPine 5 MG TABLET PO SCH (08:44)
[2017-08-17] MEDS: BUMETANIDE 1 MG TABLET PO SCH (08:44)
[2017-08-17] MEDS: METOPROLOL TARTRATE 25 MG TABLET PO SCH ×2 (08:44→21:05)
[2017-08-17] MEDS: LISINOPRIL 20 MG TABLET PO SCH (08:44)
[2017-08-17] MEDS: APIXABAN 5 MG TABLET PO SCH ×2 (08:44→21:06)
[2017-08-17] MEDS: PANTOPRAZOLE 40 MG TABLET PO SCH (08:44)
[2017-08-17] MEDS: metOLazone 2.5 MG TABLET PO SCH (08:44)
[2017-08-17] MEDS: MAGNESIUM OXIDE 400 MG TABLET PO SCH ×2 (08:44→21:05)
[2017-08-17] MEDS: ASCORBIC ACID 500 MG TABLET PO SCH (08:44)
[2017-08-17] MEDS: DOCUSATE SODIUM 100 MG CAPSULE PO SCH ×2 (08:44→21:06)
[2017-08-17] MEDS: TAMSULOSIN 0.4 MG CAPSULE PO SCH ×2 (08:44→21:06)
[2017-08-17] MEDS: CALCIUM (CARBONATE)/VITAMIN D 500 MG-200 UNIT TABLET PO SCH (08:44)
[2017-08-17] MEDS: FERROUS SULFATE 325 MG TABLET PO SCH (08:44)
[2017-08-17] MEDS ORDERED: LISINOPRIL 20 MG TABLET PO SCH (23:36)
[2017-08-18 06:02] LABS: Basophils % 0.3 % (0.0-0.8); Eosinophils # 0.1 10*3/uL (0.0-0.87); Eosinophils % 3.4 % (0.00-10.9); Hemoglobin 7.7 GM/DL (14.0-18.0); Immature Granulocytes % 0.3 %; Immature Granulocytes Absolute 0.01 #; Lymphocytes # 0.5 10*3/uL (1.4-4.0); Mean Corpuscular Hemoglobin 31 PG (27-34); Mean Platelet Volume 9.5 FL (9.6-12.0); Monocytes # 0.5 10*3/uL (0.11-0.8); Monocytes % 15.5 % (1.7-12.7); Neutrophils # 2.3 10*3/uL (1.4-7.4); Neutrophils % 66.5 % (38.7-73.9); Platelet Count 94 T/CUMM (130-400); White Blood Count 3.5 T/CUMM (4-12)
[2017-08-18 06:48] LABS: Band Neutrophils 1 % (0-10); Eosinophils 4 % (0-10); Giant Platelets Few; Hypochromasia 1+; Lymphocytes 11 % (20-55); Ovalocytes Slight; Platelet Estimate Decreased; Segmented Neutrophils 69 % (50-85); Total Cells Counted 100
[2017-08-18] MEDS: POTASSIUM CHLORIDE 20 MEQ TABLET PO SCH ×2 (08:26→20:59)
[2017-08-18] MEDS: FERROUS SULFATE 325 MG TABLET PO SCH (08:26)
[2017-08-18] MEDS: METOPROLOL TARTRATE 25 MG TABLET PO SCH ×2 (08:26→21:02)
[2017-08-18] MEDS: metOLazone 2.5 MG TABLET PO SCH (08:26)
[2017-08-18] MEDS: amLODIPine 5 MG TABLET PO SCH (08:26)
[2017-08-18] MEDS: ASCORBIC ACID 500 MG TABLET PO SCH (08:26)
[2017-08-18] MEDS: CALCIUM (CARBONATE)/VITAMIN D 500 MG-200 UNIT TABLET PO SCH (08:26)
[2017-08-18] MEDS: metFORMIN 500 MG TABLET PO SCH ×2 (08:26→21:00)
[2017-08-18] MEDS: INSULIN REGULAR 100 UNIT/ML SUBCUT SCH ×4 (08:26→21:01)
[2017-08-18] MEDS: APIXABAN 5 MG TABLET PO SCH ×2 (08:26→21:00)
[2017-08-18] MEDS: TAMSULOSIN 0.4 MG CAPSULE PO SCH ×2 (08:26→21:00)
[2017-08-18] MEDS: BUMETANIDE 1 MG TABLET PO SCH (08:26)
[2017-08-18] MEDS: MAGNESIUM OXIDE 400 MG TABLET PO SCH ×2 (08:26→20:59)
[2017-08-18] MEDS: PANTOPRAZOLE 40 MG TABLET PO SCH (08:26)
[2017-08-18] MEDS: DOCUSATE SODIUM 100 MG CAPSULE PO SCH ×2 (08:26→21:00)
[2017-08-18] MEDS: MULTIVITAMIN (CENTRUM) TABLET PO SCH (08:26)
[2017-08-18] MEDS ORDERED: SODIUM CHLORIDE 0.9% 1,000 ML IV PRN (10:29)
[2017-08-19 05:24] LABS: Basophils % 0.3 % (0.0-0.8); Eosinophils # 0.1 10*3/uL (0.0-0.87); Eosinophils % 2.9 % (0.00-10.9); Hematocrit 27.5 VOL% (42.0-52.0); Hemoglobin 9.8 GM/DL (14.0-18.0); Immature Granulocytes % 0.9 %; Immature Granulocytes Absolute 0.03 #; Lymphocytes # 0.4 10*3/uL (1.4-4.0); Lymphocytes % 12.2 % (21.2-54.2); Mean Corpuscular HGB Conc 35.6 GM/DL (32-36); Mean Corpuscular Hemoglobin 31 PG (27-34); Mean Corpuscular Volume 87.9 FL (87-102); Mean Platelet Volume 8.9 FL (9.6-12.0); Monocytes # 0.4 10*3/uL (0.11-0.8); Monocytes % 12.2 % (1.7-12.7); Neutrophils # 2.5 10*3/uL (1.4-7.4); Neutrophils % 71.5 % (38.7-73.9); Platelet Count 106 T/CUMM (130-400); Red Blood Count 3.13 MC/CUMM (3.8-5.5); Red Cell Distribution Width 16.1 % (9.3-17.3); White Blood Count 3.4 T/CUMM (4-12)
[2017-08-19 05:47] LABS: Platelet Estimate Decreased
[2017-08-19 06:00] LABS: Bilirubin,Total 1.5 MG/DL (0.2-1.0); Calcium 8.1 MG/DL (8.5-10.1); Potassium 4.1 MMOL/L (3.5-5.1); Total Protein 5.1 G/DL (6.4-8.3)
[2017-08-19] MEDS: INSULIN REGULAR 100 UNIT/ML SUBCUT SCH ×2 (07:30→11:20)
[2017-08-19] MEDS: POTASSIUM CHLORIDE 20 MEQ TABLET PO SCH (10:15)
[2017-08-19] MEDS: MULTIVITAMIN (CENTRUM) TABLET PO SCH (10:15)
[2017-08-19] MEDS: METOPROLOL TARTRATE 25 MG TABLET PO SCH (10:15)
[2017-08-19] MEDS: PANTOPRAZOLE 40 MG TABLET PO SCH (10:15)
[2017-08-19] MEDS: CALCIUM (CARBONATE)/VITAMIN D 500 MG-200 UNIT TABLET PO SCH (10:15)
[2017-08-19] MEDS: amLODIPine 5 MG TABLET PO SCH (10:15)
[2017-08-19] MEDS: APIXABAN 5 MG TABLET PO SCH (10:15)
[2017-08-19] MEDS: DOCUSATE SODIUM 100 MG CAPSULE PO SCH (10:15)
[2017-08-19] MEDS: BUMETANIDE 1 MG TABLET PO SCH (10:15)
[2017-08-19] MEDS: ASCORBIC ACID 500 MG TABLET PO SCH (10:15)
[2017-08-19] MEDS: FERROUS SULFATE 325 MG TABLET PO SCH (10:15)
[2017-08-19] MEDS: metFORMIN 500 MG TABLET PO SCH (10:15)
[2017-08-19] MEDS: TAMSULOSIN 0.4 MG CAPSULE PO SCH (10:15)
[2017-08-19] MEDS: MAGNESIUM OXIDE 400 MG TABLET PO SCH (10:15)
[2017-08-19] MEDS: metOLazone 2.5 MG TABLET PO SCH (10:15)
[2017-08-19 11:20] VITALS: BP 123/66
== END 2017-08-19 14:00 | disposition swing bed (61) | DRG 467 ==
LOC: N.OR 05:30 → N.SDSINP 05:33 → N.3E 11:02
PROVIDERS: ADMIT Orthopaedic Surgery; ATTEND Orthopaedic Surgery

== ENCOUNTER 2017-10-31 14:43 | Inpatient (IN) ==
[2017-10-31 17:07] LABS: Basophils % 0.8 % (0.0-0.8); Eosinophils # 0.1 10*3/uL (0.0-0.87); Eosinophils % 2.8 % (0.00-10.9); Hematocrit 33.3 VOL% (42.0-52.0); Hemoglobin 11.1 GM/DL (14.0-18.0); Immature Granulocytes % 0.5 %; Immature Granulocytes Absolute 0.02 #; Lymphocytes # 0.7 10*3/uL (1.4-4.0); Lymphocytes % 16.5 % (21.2-54.2); Mean Corpuscular HGB Conc 33.3 GM/DL (32-36); Mean Corpuscular Hemoglobin 30 PG (27-34); Mean Corpuscular Volume 90.5 FL (87-102); Mean Platelet Volume 9.9 FL (9.6-12.0); Monocytes # 0.4 10*3/uL (0.11-0.8); Monocytes % 10.8 % (1.7-12.7); Neutrophils # 2.8 10*3/uL (1.4-7.4); Neutrophils % 68.6 % (38.7-73.9); Platelet Count 124 T/CUMM (130-400); Red Blood Count 3.68 MC/CUMM (3.8-5.5); Red Cell Distribution Width 17.2 % (9.3-17.3)
[2017-10-31 17:24] LABS: Albumin 2.5 G/DL (3.4-5.0); Bilirubin,Total 0.9 MG/DL (0.2-1.0); Calcium 9.1 MG/DL (8.5-10.1); Osmolality,Calculated 284.5 MOS/KG (273-304); Potassium 3.9 MMOL/L (3.5-5.1); Total Protein 6.9 G/DL (6.4-8.3)
[2017-11-01 07:23] LABS: Apearance,Urine CLEAR (Clear); Bilirubin,Urine Negative (Negative); Blood, Urine Negative (Negative); Glucose,Urine (UA) Negative (Negative); Ketones,Urine Negative (Negative); Mucus,Urine Occasional /LPF (Occasional); Nitrite,Urine Negative (Negative); Protein,Urine Negative; Urine Color Yellow (Yellow); Urine Specific Gravity 1.013 (1.001-1.035); Urine Urobilinogen < 2.0 EU/DL (0.2-1.0); WBC,Urine 1 /HPF (0-6)
[2017-11-03 11:20] LABS: Basophils % 0.6 % (0.0-0.8); Eosinophils # 0.1 10*3/uL (0.0-0.87); Eosinophils % 2.3 % (0.00-10.9); Hematocrit 30.5 VOL% (42.0-52.0); Immature Granulocytes % 0.3 %; Immature Granulocytes Absolute 0.01 #; Lymphocytes # 0.5 10*3/uL (1.4-4.0); Lymphocytes % 13.5 % (21.2-54.2); Mean Corpuscular HGB Conc 32.8 GM/DL (32-36); Mean Corpuscular Hemoglobin 30 PG (27-34); Mean Corpuscular Volume 90.2 FL (87-102); Mean Platelet Volume 9.8 FL (9.6-12.0); Monocytes # 0.4 10*3/uL (0.11-0.8); Monocytes % 10.9 % (1.7-12.7); Neutrophils # 2.5 10*3/uL (1.4-7.4); Neutrophils % 72.4 % (38.7-73.9); Platelet Count 105 T/CUMM (130-400); Red Blood Count 3.38 MC/CUMM (3.8-5.5); Red Cell Distribution Width 17.2 % (9.3-17.3); White Blood Count 3.5 T/CUMM (4-12)
[2017-11-03 11:47] LABS: Calcium 8.2 MG/DL (8.5-10.1); Osmolality,Calculated 278.7 MOS/KG (273-304); Potassium 3.2 MMOL/L (3.5-5.1)
[2017-11-04 06:47] LABS: Calcium 8.1 MG/DL (8.5-10.1); Osmolality,Calculated 275.5 MOS/KG (273-304); Potassium 3.9 MMOL/L (3.5-5.1)
[2017-11-05 15:56] VITALS: BP 109/85
== END 2017-11-05 19:40 | disposition home health service (06) | DRG 373 ==
LOC: N.TELEN 15:29
PROVIDERS: ADMIT Family Medicine; ATTEND Family Medicine

== ENCOUNTER 2017-11-09 13:56 | Inpatient (IN) ==
[2017-11-09 14:53] LABS: Basophils % 0.7 % (0.0-0.8); Eosinophils # 0.1 10*3/uL (0.0-0.87); Eosinophils % 2.9 % (0.00-10.9); Hematocrit 28.8 VOL% (42.0-52.0); Hemoglobin 9.6 GM/DL (14.0-18.0); Immature Granulocytes % 0.3 %; Immature Granulocytes Absolute 0.01 #; Lymphocytes # 0.3 10*3/uL (1.4-4.0); Lymphocytes % 10.1 % (21.2-54.2); Mean Corpuscular HGB Conc 33.3 GM/DL (32-36); Mean Corpuscular Hemoglobin 30 PG (27-34); Mean Corpuscular Volume 90.9 FL (87-102); Mean Platelet Volume 8.9 FL (9.6-12.0); Monocytes # 0.4 10*3/uL (0.11-0.8); Monocytes % 12.1 % (1.7-12.7); Neutrophils # 2.3 10*3/uL (1.4-7.4); Neutrophils % 73.9 % (38.7-73.9); Platelet Count 102 T/CUMM (130-400); Red Blood Count 3.17 MC/CUMM (3.8-5.5); Red Cell Distribution Width 18.1 % (9.3-17.3); White Blood Count 3.1 T/CUMM (4-12)
[2017-11-09 15:22] LABS: Osmolality,Calculated 278.4 MOS/KG (273-304); Potassium 3.7 MMOL/L (3.5-5.1)
[2017-11-09 15:43] LABS: Polychromasia Few
[2017-11-09 15:44] LABS: Elliptocytes Few; Platelet Estimate Adequate
[2017-11-09] MEDS ORDERED: ACETAMINOPHEN 325 MG TABLET PO PRN (17:33)
[2017-11-09] MEDS ORDERED: GLUCAGON 1 MG VIAL IM PRN (17:33)
[2017-11-09] MEDS ORDERED: ONDANSETRON 4 MG/2 ML VIAL IV PRN (17:33)
[2017-11-09] MEDS ORDERED: DEXTROSE 50% 25 GM/50 ML VIAL IV PRN (17:33)
[2017-11-09] MEDS ORDERED: cefTRIAXone 1,000 MG in SODIUM CHLORIDE 0.9% 100 ML IV STA (17:39)
[2017-11-09] MEDS ORDERED: SODIUM CHLORIDE 0.9% 1,000 ML IV SCH (18:00)
[2017-11-09] MEDS ORDERED: cefTRIAXone 1,000 MG in SYRINGE 1 EACH IV SCH (21:00)
[2017-11-09] MEDS: VANCOMYCIN 50 MG/ML 60 ML/BOTTLE PO SCH (21:42)
[2017-11-09] MEDS ORDERED: NITROGLYCERIN SL 0.4 MG TABLET SL PRN (21:53)
[2017-11-10] MEDS: TAMSULOSIN 0.4 MG CAPSULE PO SCH ×3 (00:22→20:34)
[2017-11-10] MEDS: VANCOMYCIN 50 MG/ML 60 ML/BOTTLE PO SCH ×3 (00:22→15:20)
[2017-11-10] MEDS ORDERED: DEXTROSE 50% 25 GM/50 ML VIAL IV PRN (04:44)
[2017-11-10] MEDS ORDERED: GLUCAGON 1 MG VIAL IM PRN (04:44)
[2017-11-10] MEDS: LACTOBACILLUS ACIDOPHILUS/BULGARICUS CAPLET PO SCH ×3 (08:42→20:34)
[2017-11-10] MEDS: MULTIVITAMIN (CENTRUM) TABLET PO SCH (08:42)
[2017-11-10] MEDS: CALCIUM (CARBONATE)/VITAMIN D 600 MG-400 UNIT TABLET PO SCH ×2 (08:42→20:39)
[2017-11-10] MEDS: FERROUS SULFATE 325 MG TABLET PO SCH (08:42)
[2017-11-10] MEDS: LISINOPRIL 20 MG TABLET PO SCH (08:43)
[2017-11-10] MEDS: POTASSIUM CHLORIDE 20 MEQ TABLET PO SCH (08:43)
[2017-11-10] MEDS: ASCORBIC ACID 500 MG TABLET PO SCH (08:43)
[2017-11-10] MEDS: OXYBUTYNIN XL 10 MG TABLET PO SCH (08:43)
[2017-11-10] MEDS: PANTOPRAZOLE 40 MG TABLET PO SCH (08:43)
[2017-11-10] MEDS: MAGNESIUM OXIDE 400 MG TABLET PO SCH ×2 (08:43→20:34)
[2017-11-10] MEDS: BUMETANIDE 1 MG TABLET PO SCH (08:43)
[2017-11-10] MEDS: amLODIPine 5 MG TABLET PO SCH (08:43)
[2017-11-10] MEDS ORDERED: PANTOPRAZOLE 40 MG TABLET PO SCH (09:00)
[2017-11-11 05:53] LABS: Basophils % 0.4 % (0.0-0.8); Eosinophils # 0.1 10*3/uL (0.0-0.87); Eosinophils % 3.7 % (0.00-10.9); Hematocrit 27.7 VOL% (42.0-52.0); Hemoglobin 9.5 GM/DL (14.0-18.0); Immature Granulocytes % 0.4 %; Immature Granulocytes Absolute 0.01 #; Lymphocytes # 0.4 10*3/uL (1.4-4.0); Lymphocytes % 14.9 % (21.2-54.2); Mean Corpuscular HGB Conc 34.3 GM/DL (32-36); Mean Corpuscular Hemoglobin 30 PG (27-34); Mean Corpuscular Volume 88.8 FL (87-102); Mean Platelet Volume 9.6 FL (9.6-12.0); Monocytes # 0.3 10*3/uL (0.11-0.8); Neutrophils # 1.7 10*3/uL (1.4-7.4); Neutrophils % 68.6 % (38.7-73.9); Platelet Count 92 T/CUMM (130-400); Red Blood Count 3.12 MC/CUMM (3.8-5.5); Red Cell Distribution Width 18.6 % (9.3-17.3); White Blood Count 2.4 T/CUMM (4-12)
[2017-11-11 06:07] LABS: Calcium 7.6 MG/DL (8.5-10.1); Osmolality,Calculated 276.7 MOS/KG (273-304); Potassium 3.5 MMOL/L (3.5-5.1)
[2017-11-11 06:30] LABS: Anisocytosis 1+; Band Neutrophils 8 % (0-10); Eosinophils 4 % (0-10); Lymphocytes 12 % (20-55); Macrocytosis Slight; Platelet Estimate Adequate; Poikilocytosis 2+; Segmented Neutrophils 64 % (50-85); Total Cells Counted 100
[2017-11-11] MEDS: VANCOMYCIN 50 MG/ML 60 ML/BOTTLE PO SCH ×3 (06:47→22:00)
[2017-11-11] MEDS ORDERED: MAGNESIUM SULF RIDER 2 GM in PREMIX 1 EACH IV ONE (09:00)
[2017-11-11] MEDS: POTASSIUM CHLORIDE 20 MEQ TABLET PO SCH (10:18)
[2017-11-11] MEDS: amLODIPine 5 MG TABLET PO SCH (10:18)
[2017-11-11] MEDS: FERROUS SULFATE 325 MG TABLET PO SCH (10:18)
[2017-11-11] MEDS: TAMSULOSIN 0.4 MG CAPSULE PO SCH ×2 (10:18→20:58)
[2017-11-11] MEDS: LACTOBACILLUS ACIDOPHILUS/BULGARICUS CAPLET PO SCH ×3 (10:18→20:57)
[2017-11-11] MEDS: ASPIRIN 325 MG TABLET PO SCH (10:18)
[2017-11-11] MEDS: CALCIUM (CARBONATE)/VITAMIN D 600 MG-400 UNIT TABLET PO SCH ×2 (10:19→20:57)
[2017-11-11] MEDS: MULTIVITAMIN (CENTRUM) TABLET PO SCH (10:19)
[2017-11-11] MEDS: BUMETANIDE 1 MG TABLET PO SCH (10:20)
[2017-11-11] MEDS: MAGNESIUM OXIDE 400 MG TABLET PO SCH ×2 (10:20→20:58)
[2017-11-11] MEDS: LISINOPRIL 20 MG TABLET PO SCH (10:20)
[2017-11-11] MEDS: PANTOPRAZOLE 40 MG TABLET PO SCH (10:21)
[2017-11-11] MEDS: ASCORBIC ACID 500 MG TABLET PO SCH (10:21)
[2017-11-11] MEDS: APIXABAN 5 MG TABLET PO SCH ×2 (10:21→20:58)
[2017-11-11] MEDS: OXYBUTYNIN XL 10 MG TABLET PO SCH (10:23)
[2017-11-12] MEDS: VANCOMYCIN 50 MG/ML 60 ML/BOTTLE PO SCH ×3 (06:18→22:19)
[2017-11-12] MEDS: APIXABAN 5 MG TABLET PO SCH ×2 (10:27→22:16)
[2017-11-12] MEDS: TAMSULOSIN 0.4 MG CAPSULE PO SCH ×2 (10:28→22:19)
[2017-11-12] MEDS: amLODIPine 5 MG TABLET PO SCH (10:28)
[2017-11-12] MEDS: MAGNESIUM OXIDE 400 MG TABLET PO SCH ×2 (10:28→22:16)
[2017-11-12] MEDS: ASPIRIN 325 MG TABLET PO SCH (10:29)
[2017-11-12] MEDS: PANTOPRAZOLE 40 MG TABLET PO SCH (10:29)
[2017-11-12] MEDS: LISINOPRIL 20 MG TABLET PO SCH (10:29)
[2017-11-12] MEDS: BUMETANIDE 1 MG TABLET PO SCH (10:30)
[2017-11-12] MEDS: FERROUS SULFATE 325 MG TABLET PO SCH (10:31)
[2017-11-12] MEDS: OXYBUTYNIN XL 10 MG TABLET PO SCH (10:31)
[2017-11-12] MEDS: LACTOBACILLUS ACIDOPHILUS/BULGARICUS CAPLET PO SCH ×3 (10:31→22:19)
[2017-11-12] MEDS: ASCORBIC ACID 500 MG TABLET PO SCH (10:39)
[2017-11-12] MEDS: CALCIUM (CARBONATE)/VITAMIN D 600 MG-400 UNIT TABLET PO SCH ×2 (10:39→22:17)
[2017-11-12] MEDS: POTASSIUM CHLORIDE 20 MEQ TABLET PO SCH (10:40)
[2017-11-12] MEDS: MULTIVITAMIN (CENTRUM) TABLET PO SCH (10:40)
[2017-11-13] MEDS: VANCOMYCIN 50 MG/ML 60 ML/BOTTLE PO SCH ×2 (06:47→14:44)
[2017-11-13] MEDS: OXYBUTYNIN XL 10 MG TABLET PO SCH (08:45)
[2017-11-13] MEDS: POTASSIUM CHLORIDE 20 MEQ TABLET PO SCH (08:45)
[2017-11-13] MEDS: FERROUS SULFATE 325 MG TABLET PO SCH (08:46)
[2017-11-13] MEDS: APIXABAN 5 MG TABLET PO SCH (08:46)
[2017-11-13] MEDS: TAMSULOSIN 0.4 MG CAPSULE PO SCH (08:46)
[2017-11-13] MEDS: MAGNESIUM OXIDE 400 MG TABLET PO SCH (08:46)
[2017-11-13] MEDS: amLODIPine 5 MG TABLET PO SCH (08:46)
[2017-11-13] MEDS: CALCIUM (CARBONATE)/VITAMIN D 600 MG-400 UNIT TABLET PO SCH (08:46)
[2017-11-13] MEDS: PANTOPRAZOLE 40 MG TABLET PO SCH (08:46)
[2017-11-13] MEDS: ASCORBIC ACID 500 MG TABLET PO SCH (08:46)
[2017-11-13] MEDS: MULTIVITAMIN (CENTRUM) TABLET PO SCH (08:47)
[2017-11-13] MEDS: ASPIRIN 325 MG TABLET PO SCH (08:47)
[2017-11-13] MEDS: BUMETANIDE 1 MG TABLET PO SCH (08:47)
[2017-11-13] MEDS: LACTOBACILLUS ACIDOPHILUS/BULGARICUS CAPLET PO SCH ×2 (08:47→14:57)
[2017-11-13] MEDS: LISINOPRIL 20 MG TABLET PO SCH (08:47)
[2017-11-13 16:25] VITALS: BP 111/67
== END 2017-11-13 18:28 | disposition swing bed (61) | DRG 556 ==
LOC: EDBD → EDUNIT# → N.ED 13:56 → N.EDINP 17:33 → N.2E 19:56
PROVIDERS: ADMIT Family Medicine; ATTEND Family Medicine

== ENCOUNTER 2017-12-24 04:22 | Inpatient (IN) ==
[2017-12-24] MEDS ORDERED: FAMOTIDINE 20 MG TABLET PO ONE (07:17)
[2017-12-24] MEDS: LACTATED RINGERS 1,000 ML IV SCH ×2 (08:22→11:22)
[2017-12-24] MEDS ORDERED: FAMOTIDINE 20 MG TABLET ONE (08:23)
[2017-12-24] MEDS ORDERED: VANCOMYCIN 1,000 MG VIAL ONE (08:23)
[2017-12-24] MEDS ORDERED: ceFAZolin 1,000 MG VIAL ONE (08:23)
[2017-12-24] MEDS ORDERED: ROPIVACAINE 0.5% 30 ML VIAL ONE (08:25)
[2017-12-24] MEDS ORDERED: MIDAZOLAM 2 MG/2 ML VIAL ONE (08:44)
[2017-12-24] MEDS ORDERED: fentaNYL 100 MCG/2 ML VIAL ONE ×2 (08:45→10:49)
[2017-12-24] MEDS ORDERED: MAGNESIUM HYDROXIDE SUSP 30 ML UDCUP PO PRN (10:31)
[2017-12-24] MEDS ORDERED: HYDROmorphone 2 MG/1 ML VIAL IV PRN ×2 (10:31→11:09)
[2017-12-24] MEDS ORDERED: LACTULOSE 20 GM/30 ML UDCUP PO PRN (10:31)
[2017-12-24] MEDS ORDERED: ONDANSETRON 4 MG/2 ML VIAL IV PRN ×2 (10:31→11:09)
[2017-12-24] MEDS ORDERED: BISACODYL 10 MG SUPP RECTAL PRN (10:31)
[2017-12-24] MEDS ORDERED: PROMETHAZINE 25 MG/1 ML VIAL IM PRN (10:31)
[2017-12-24] MEDS ORDERED: ACETAMINOPHEN 325 MG TABLET PO PRN (10:31)
[2017-12-24] MEDS ORDERED: NITROGLYCERIN SL 0.4 MG TABLET SL PRN (10:35)
[2017-12-24] MEDS ORDERED: PROPOFOL 200 MG/20 ML VIAL IV ONE (10:48)
[2017-12-24] MEDS ORDERED: SEVOFLURANE 1 UNIT/15 MINUTE INH ONE (10:48)
[2017-12-24] MEDS ORDERED: PHENYLEPHRINE 1 MG/10 ML SYRINGE IV ONE (10:49)
[2017-12-24] MEDS ORDERED: ONDANSETRON 4 MG/2 ML VIAL ONE ×2 (10:49→11:04)
[2017-12-24] MEDS ORDERED: ACETAMINOPHEN 1,000 MG/100 ML VIAL IV ONE (10:49)
[2017-12-24] MEDS ORDERED: MEPERIDINE 25 MG/1 ML VIAL ONE ×2 (11:04→12:35)
[2017-12-24] MEDS: MEPERIDINE 25 MG/1 ML VIAL IV PRN ×2 (11:05→12:40)
[2017-12-24] MEDS ORDERED: diphenhydrAMINE 50 MG/1 ML VIAL IV PRN (11:09)
[2017-12-24] MEDS ORDERED: PROMETHAZINE INJ 25 MG in SODIUM CHLORIDE 0.9% 50 ML IV PRN (11:09)
[2017-12-24] MEDS: ceFAZolin 2,000 MG in PREMIX 1 EACH IV SCH (17:20)
[2017-12-24 18:39] LABS: Basophils % 0.8 % (0.0-0.8); Eosinophils # 0.1 10*3/uL (0.0-0.87); Eosinophils % 3.9 % (0.00-10.9); Hematocrit 30.7 VOL% (42.0-52.0); Immature Granulocytes % 0.4 %; Immature Granulocytes Absolute 0.01 #; Lymphocytes # 0.4 10*3/uL (1.4-4.0); Lymphocytes % 16.5 % (21.2-54.2); Mean Corpuscular HGB Conc 32.6 GM/DL (32-36); Mean Corpuscular Hemoglobin 30 PG (27-34); Mean Corpuscular Volume 91.1 FL (87-102); Mean Platelet Volume 10.5 FL (9.6-12.0); Monocytes # 0.3 10*3/uL (0.11-0.8); Monocytes % 9.8 % (1.7-12.7); Neutrophils # 1.8 10*3/uL (1.4-7.4); Neutrophils % 68.6 % (38.7-73.9); Platelet Count 71 T/CUMM (130-400); Red Blood Count 3.37 MC/CUMM (3.8-5.5); Red Cell Distribution Width 17.5 % (9.3-17.3); White Blood Count 2.6 T/CUMM (4-12)
[2017-12-24 18:57] LABS: Calcium 8.2 MG/DL (8.5-10.1); Osmolality,Calculated 281.5 MOS/KG (273-304); Potassium 3.5 MMOL/L (3.5-5.1)
[2017-12-24] MEDS: MAGNESIUM OXIDE 400 MG TABLET PO SCH (20:44)
[2017-12-24] MEDS: METOPROLOL TARTRATE 25 MG TABLET PO SCH (20:44)
[2017-12-24] MEDS: TAMSULOSIN 0.4 MG CAPSULE PO SCH (20:44)
[2017-12-24] MEDS: CALCIUM (CARBONATE)/VITAMIN D 600 MG-400 UNIT TABLET PO SCH (20:45)
[2017-12-24 21:19] LABS: Platelet Estimate Decreased
[2017-12-25] MEDS: ceFAZolin 2,000 MG in PREMIX 1 EACH IV SCH (00:48)
[2017-12-25] MEDS ORDERED: ceFAZolin 2,000 MG in PREMIX 1 EACH IV SCH (02:00)
[2017-12-25] MEDS: LACTOBACILLUS ACIDOPHILUS/BULGARICUS CAPLET PO SCH (08:56)
[2017-12-25] MEDS: OXYBUTYNIN XL 10 MG TABLET PO SCH (08:56)
[2017-12-25] MEDS: MULTIVITAMIN (CENTRUM) TABLET PO SCH (08:56)
[2017-12-25] MEDS: CALCIUM (CARBONATE)/VITAMIN D 600 MG-400 UNIT TABLET PO SCH ×2 (08:56→20:39)
[2017-12-25] MEDS: BUMETANIDE 1 MG TABLET PO SCH (08:56)
[2017-12-25] MEDS: ASCORBIC ACID 500 MG TABLET PO SCH (08:57)
[2017-12-25] MEDS: metFORMIN 500 MG TABLET PO SCH (08:57)
[2017-12-25] MEDS: APIXABAN 5 MG TABLET PO SCH ×2 (08:57→20:39)
[2017-12-25] MEDS: POTASSIUM CHLORIDE 20 MEQ TABLET PO SCH (08:57)
[2017-12-25] MEDS: MAGNESIUM OXIDE 400 MG TABLET PO SCH ×2 (08:57→20:39)
[2017-12-25] MEDS: LISINOPRIL 20 MG TABLET PO SCH (08:57)
[2017-12-25] MEDS: TAMSULOSIN 0.4 MG CAPSULE PO SCH ×2 (08:57→20:39)
[2017-12-25] MEDS: amLODIPine 5 MG TABLET PO SCH (08:57)
[2017-12-25] MEDS: METOPROLOL TARTRATE 25 MG TABLET PO SCH ×2 (08:57→20:39)
[2017-12-25] MEDS: PANTOPRAZOLE 40 MG TABLET PO SCH (08:57)
[2017-12-25] MEDS: FERROUS SULFATE 325 MG TABLET PO SCH (08:57)
[2017-12-26] MEDS: BUMETANIDE 1 MG TABLET PO SCH (09:01)
[2017-12-26] MEDS: PANTOPRAZOLE 40 MG TABLET PO SCH (09:01)
[2017-12-26] MEDS: MULTIVITAMIN (CENTRUM) TABLET PO SCH (09:01)
[2017-12-26] MEDS: LACTOBACILLUS ACIDOPHILUS/BULGARICUS CAPLET PO SCH (09:01)
[2017-12-26] MEDS: metFORMIN 500 MG TABLET PO SCH (09:02)
[2017-12-26] MEDS: CALCIUM (CARBONATE)/VITAMIN D 600 MG-400 UNIT TABLET PO SCH ×2 (09:02→21:17)
[2017-12-26] MEDS: MAGNESIUM OXIDE 400 MG TABLET PO SCH ×2 (09:02→21:17)
[2017-12-26] MEDS: LISINOPRIL 20 MG TABLET PO SCH (09:02)
[2017-12-26] MEDS: OXYBUTYNIN XL 10 MG TABLET PO SCH (09:02)
[2017-12-26] MEDS: POTASSIUM CHLORIDE 20 MEQ TABLET PO SCH (09:02)
[2017-12-26] MEDS: APIXABAN 5 MG TABLET PO SCH ×2 (09:03→21:17)
[2017-12-26] MEDS: FERROUS SULFATE 325 MG TABLET PO SCH (09:03)
[2017-12-26] MEDS: METOPROLOL TARTRATE 25 MG TABLET PO SCH ×2 (09:03→21:16)
[2017-12-26] MEDS: TAMSULOSIN 0.4 MG CAPSULE PO SCH ×2 (09:03→21:16)
[2017-12-26] MEDS: amLODIPine 5 MG TABLET PO SCH (09:03)
[2017-12-26] MEDS: ASCORBIC ACID 500 MG TABLET PO SCH (09:03)
[2017-12-27 07:25] LABS: Basophils % 0.3 % (0.0-0.8); Eosinophils # 0.1 10*3/uL (0.0-0.87); Eosinophils % 2.6 % (0.00-10.9); Hematocrit 27.1 VOL% (42.0-52.0); Hemoglobin 8.7 GM/DL (14.0-18.0); Immature Granulocytes % 0.3 %; Immature Granulocytes Absolute 0.01 #; Lymphocytes # 0.4 10*3/uL (1.4-4.0); Mean Corpuscular HGB Conc 32.1 GM/DL (32-36); Mean Corpuscular Hemoglobin 30 PG (27-34); Mean Corpuscular Volume 92.5 FL (87-102); Mean Platelet Volume 10.6 FL (9.6-12.0); Monocytes # 0.3 10*3/uL (0.11-0.8); Monocytes % 9.1 % (1.7-12.7); Neutrophils # 2.6 10*3/uL (1.4-7.4); Neutrophils % 75.7 % (38.7-73.9); Red Blood Count 2.93 MC/CUMM (3.8-5.5); Red Cell Distribution Width 17.7 % (9.3-17.3); White Blood Count 3.4 T/CUMM (4-12)
[2017-12-27 07:27] LABS: Platelet Count 69 T/CUMM (130-400)
[2017-12-27 07:54] LABS: Calcium 7.7 MG/DL (8.5-10.1); Hypochromasia 1+; Osmolality,Calculated 281.7 MOS/KG (273-304); Ovalocytes Slight; Platelet Estimate Decreased; Potassium 4.2 MMOL/L (3.5-5.1)
[2017-12-27] MEDS: metFORMIN 500 MG TABLET PO SCH (08:47)
[2017-12-27] MEDS: LISINOPRIL 20 MG TABLET PO SCH (08:47)
[2017-12-27] MEDS: MAGNESIUM OXIDE 400 MG TABLET PO SCH ×2 (08:47→21:00)
[2017-12-27] MEDS: LACTOBACILLUS ACIDOPHILUS/BULGARICUS CAPLET PO SCH (08:48)
[2017-12-27] MEDS: BUMETANIDE 1 MG TABLET PO SCH (08:48)
[2017-12-27] MEDS: POTASSIUM CHLORIDE 20 MEQ TABLET PO SCH (08:48)
[2017-12-27] MEDS: amLODIPine 5 MG TABLET PO SCH (08:48)
[2017-12-27] MEDS: TAMSULOSIN 0.4 MG CAPSULE PO SCH ×2 (08:48→21:00)
[2017-12-27] MEDS: APIXABAN 5 MG TABLET PO SCH ×2 (08:49→21:01)
[2017-12-27] MEDS: OXYBUTYNIN XL 10 MG TABLET PO SCH (08:49)
[2017-12-27] MEDS: MULTIVITAMIN (CENTRUM) TABLET PO SCH (08:49)
[2017-12-27] MEDS: ASCORBIC ACID 500 MG TABLET PO SCH (08:49)
[2017-12-27] MEDS: CALCIUM (CARBONATE)/VITAMIN D 600 MG-400 UNIT TABLET PO SCH ×2 (08:49→21:00)
[2017-12-27] MEDS: FERROUS SULFATE 325 MG TABLET PO SCH (08:49)
[2017-12-27] MEDS: METOPROLOL TARTRATE 25 MG TABLET PO SCH ×2 (08:49→21:01)
[2017-12-27] MEDS: PANTOPRAZOLE 40 MG TABLET PO SCH (08:49)
[2017-12-27] MEDS: metOLazone 2.5 MG TABLET PO SCH (09:41)
[2017-12-28] MEDS: metFORMIN 500 MG TABLET PO SCH (10:01)
[2017-12-28] MEDS: METOPROLOL TARTRATE 25 MG TABLET PO SCH ×2 (10:01→20:16)
[2017-12-28] MEDS: MAGNESIUM OXIDE 400 MG TABLET PO SCH ×2 (10:01→20:16)
[2017-12-28] MEDS: LISINOPRIL 20 MG TABLET PO SCH (10:02)
[2017-12-28] MEDS: BUMETANIDE 1 MG TABLET PO SCH (10:02)
[2017-12-28] MEDS: TAMSULOSIN 0.4 MG CAPSULE PO SCH ×2 (10:02→20:16)
[2017-12-28] MEDS: LACTOBACILLUS ACIDOPHILUS/BULGARICUS CAPLET PO SCH (10:02)
[2017-12-28] MEDS: POTASSIUM CHLORIDE 20 MEQ TABLET PO SCH (10:03)
[2017-12-28] MEDS: ASCORBIC ACID 500 MG TABLET PO SCH (10:03)
[2017-12-28] MEDS: PANTOPRAZOLE 40 MG TABLET PO SCH (10:03)
[2017-12-28] MEDS: APIXABAN 5 MG TABLET PO SCH ×2 (10:03→20:16)
[2017-12-28] MEDS: amLODIPine 5 MG TABLET PO SCH (10:03)
[2017-12-28] MEDS: OXYBUTYNIN XL 10 MG TABLET PO SCH (10:03)
[2017-12-28] MEDS: CALCIUM (CARBONATE)/VITAMIN D 600 MG-400 UNIT TABLET PO SCH ×2 (10:03→20:15)
[2017-12-28] MEDS: MULTIVITAMIN (CENTRUM) TABLET PO SCH (10:04)
[2017-12-28] MEDS: FERROUS SULFATE 325 MG TABLET PO SCH (10:04)
[2017-12-28 18:16] LABS: Basophils % 0.3 % (0.0-0.8); Eosinophils # 0.1 10*3/uL (0.0-0.87); Hematocrit 23.9 VOL% (42.0-52.0); Hemoglobin 7.9 GM/DL (14.0-18.0); Immature Granulocytes % 0.3 %; Immature Granulocytes Absolute 0.01 #; Lymphocytes # 0.4 10*3/uL (1.4-4.0); Lymphocytes % 11.7 % (21.2-54.2); Mean Corpuscular HGB Conc 33.1 GM/DL (32-36); Mean Corpuscular Hemoglobin 30 PG (27-34); Mean Corpuscular Volume 90.5 FL (87-102); Mean Platelet Volume 10.2 FL (9.6-12.0); Monocytes # 0.4 10*3/uL (0.11-0.8); Monocytes % 11.4 % (1.7-12.7); Neutrophils # 2.6 10*3/uL (1.4-7.4); Neutrophils % 74.3 % (38.7-73.9); Platelet Count 64 T/CUMM (130-400); Red Blood Count 2.64 MC/CUMM (3.8-5.5); Red Cell Distribution Width 17.6 % (9.3-17.3); White Blood Count 3.4 T/CUMM (4-12)
[2017-12-28 18:32] LABS: Calcium 7.6 MG/DL (8.5-10.1); Potassium 3.7 MMOL/L (3.5-5.1)
[2017-12-28 18:46] LABS: Eosinophils 3 % (0-10); Hypochromasia 1+; Lymphocytes 13 % (20-55); Macrocytosis Slight; Platelet Estimate Decreased; Segmented Neutrophils 82 % (50-85); Total Cells Counted 100
[2017-12-28 18:47] LABS: Ovalocytes Few
[2017-12-28] MEDS: VANCOMYCIN 50 MG/ML 60 ML/BOTTLE PO SCH (23:54)
[2017-12-29 05:42] LABS: Osmolality,Calculated 280.8 MOS/KG (273-304); Potassium 3.7 MMOL/L (3.5-5.1)
[2017-12-29 05:43] LABS: Basophils % 0.4 % (0.0-0.8); Eosinophils # 0.1 10*3/uL (0.0-0.87); Eosinophils % 3.6 % (0.00-10.9); Hematocrit 23.6 VOL% (42.0-52.0); Hemoglobin 7.8 GM/DL (14.0-18.0); Immature Granulocytes % 0.4 %; Immature Granulocytes Absolute 0.01 #; Lymphocytes # 0.5 10*3/uL (1.4-4.0); Mean Corpuscular HGB Conc 33.1 GM/DL (32-36); Mean Corpuscular Hemoglobin 30 PG (27-34); Mean Corpuscular Volume 90.4 FL (87-102); Monocytes # 0.3 10*3/uL (0.11-0.8); Monocytes % 11.9 % (1.7-12.7); Neutrophils # 1.9 10*3/uL (1.4-7.4); Neutrophils % 66.7 % (38.7-73.9); Platelet Count 68 T/CUMM (130-400); Red Blood Count 2.61 MC/CUMM (3.8-5.5); Red Cell Distribution Width 17.7 % (9.3-17.3); White Blood Count 2.8 T/CUMM (4-12)
[2017-12-29] MEDS: VANCOMYCIN 50 MG/ML 60 ML/BOTTLE PO SCH ×3 (05:54→19:27)
[2017-12-29 07:02] LABS: Atypical Lymphocytes Few; Band Neutrophils 10 % (0-10); Eosinophils 3 % (0-10); Lymphocytes 14 % (20-55); Platelet Estimate Decreased; Segmented Neutrophils 68 % (50-85); Total Cells Counted 100
[2017-12-29 07:03] LABS: Acanthocytes 1+; Anisocytosis 1+; Macrocytosis 1+; Ovalocytes 1+
[2017-12-29] MEDS: FERROUS SULFATE 325 MG TABLET PO SCH (09:43)
[2017-12-29] MEDS: LISINOPRIL 20 MG TABLET PO SCH (09:43)
[2017-12-29] MEDS: BUMETANIDE 1 MG TABLET PO SCH (09:43)
[2017-12-29] MEDS: PANTOPRAZOLE 40 MG TABLET PO SCH (09:44)
[2017-12-29] MEDS: metFORMIN 500 MG TABLET PO SCH (09:44)
[2017-12-29] MEDS: OXYBUTYNIN XL 10 MG TABLET PO SCH (09:44)
[2017-12-29] MEDS: APIXABAN 5 MG TABLET PO SCH ×2 (09:45→21:50)
[2017-12-29] MEDS: CALCIUM (CARBONATE)/VITAMIN D 600 MG-400 UNIT TABLET PO SCH ×2 (09:45→21:50)
[2017-12-29] MEDS: TAMSULOSIN 0.4 MG CAPSULE PO SCH ×2 (09:45→21:50)
[2017-12-29] MEDS: ASCORBIC ACID 500 MG TABLET PO SCH (09:45)
[2017-12-29] MEDS: LACTOBACILLUS ACIDOPHILUS/BULGARICUS CAPLET PO SCH (09:45)
[2017-12-29] MEDS: METOPROLOL TARTRATE 25 MG TABLET PO SCH ×2 (09:45→21:50)
[2017-12-29] MEDS: amLODIPine 5 MG TABLET PO SCH (09:45)
[2017-12-29] MEDS: MAGNESIUM OXIDE 400 MG TABLET PO SCH ×2 (09:45→21:50)
[2017-12-29] MEDS: POTASSIUM CHLORIDE 20 MEQ TABLET PO SCH (09:45)
[2017-12-29] MEDS: MULTIVITAMIN (CENTRUM) TABLET PO SCH (09:45)
[2017-12-30] MEDS: VANCOMYCIN 50 MG/ML 60 ML/BOTTLE PO SCH ×4 (00:40→18:45)
[2017-12-30] MEDS: ASCORBIC ACID 500 MG TABLET PO SCH (08:59)
[2017-12-30] MEDS: LISINOPRIL 20 MG TABLET PO SCH (08:59)
[2017-12-30] MEDS: metFORMIN 500 MG TABLET PO SCH (08:59)
[2017-12-30] MEDS: metOLazone 2.5 MG TABLET PO SCH (08:59)
[2017-12-30] MEDS: BUMETANIDE 1 MG TABLET PO SCH (08:59)
[2017-12-30] MEDS: LACTOBACILLUS ACIDOPHILUS/BULGARICUS CAPLET PO SCH (08:59)
[2017-12-30] MEDS: PANTOPRAZOLE 40 MG TABLET PO SCH (09:00)
[2017-12-30] MEDS: APIXABAN 5 MG TABLET PO SCH ×2 (09:00→20:53)
[2017-12-30] MEDS: POTASSIUM CHLORIDE 20 MEQ TABLET PO SCH (09:00)
[2017-12-30] MEDS: OXYBUTYNIN XL 10 MG TABLET PO SCH (09:00)
[2017-12-30] MEDS: TAMSULOSIN 0.4 MG CAPSULE PO SCH ×2 (09:00→20:53)
[2017-12-30] MEDS: MAGNESIUM OXIDE 400 MG TABLET PO SCH ×2 (09:00→20:53)
[2017-12-30] MEDS: CALCIUM (CARBONATE)/VITAMIN D 600 MG-400 UNIT TABLET PO SCH ×2 (09:00→20:53)
[2017-12-30] MEDS: MULTIVITAMIN (CENTRUM) TABLET PO SCH (09:00)
[2017-12-30] MEDS: FERROUS SULFATE 325 MG TABLET PO SCH (09:01)
[2017-12-30] MEDS: amLODIPine 5 MG TABLET PO SCH (09:01)
[2017-12-30] MEDS: METOPROLOL TARTRATE 25 MG TABLET PO SCH ×2 (09:01→20:53)
[2017-12-31] MEDS: VANCOMYCIN 50 MG/ML 60 ML/BOTTLE PO SCH ×4 (00:50→17:23)
[2017-12-31] MEDS: ASCORBIC ACID 500 MG TABLET PO SCH (09:50)
[2017-12-31] MEDS: TAMSULOSIN 0.4 MG CAPSULE PO SCH ×2 (09:51→20:56)
[2017-12-31] MEDS: APIXABAN 5 MG TABLET PO SCH ×2 (09:51→20:55)
[2017-12-31] MEDS: amLODIPine 5 MG TABLET PO SCH (09:51)
[2017-12-31] MEDS: POTASSIUM CHLORIDE 20 MEQ TABLET PO SCH (09:51)
[2017-12-31] MEDS: OXYBUTYNIN XL 10 MG TABLET PO SCH (09:52)
[2017-12-31] MEDS: MAGNESIUM OXIDE 400 MG TABLET PO SCH ×2 (09:52→20:55)
[2017-12-31] MEDS: METOPROLOL TARTRATE 25 MG TABLET PO SCH ×2 (09:52→21:00)
[2017-12-31] MEDS: BUMETANIDE 1 MG TABLET PO SCH (09:52)
[2017-12-31] MEDS: LISINOPRIL 20 MG TABLET PO SCH (09:52)
[2017-12-31] MEDS: LACTOBACILLUS ACIDOPHILUS/BULGARICUS CAPLET PO SCH (09:52)
[2017-12-31] MEDS: FERROUS SULFATE 325 MG TABLET PO SCH ×2 (09:52→20:59)
[2017-12-31] MEDS: CALCIUM (CARBONATE)/VITAMIN D 600 MG-400 UNIT TABLET PO SCH ×2 (09:53→20:55)
[2017-12-31] MEDS: MULTIVITAMIN (CENTRUM) TABLET PO SCH (09:53)
[2017-12-31] MEDS: metFORMIN 500 MG TABLET PO SCH (09:53)
[2017-12-31] MEDS: PANTOPRAZOLE 40 MG TABLET PO SCH (09:53)
[2017-12-31 13:17] LABS: Hematocrit 26.5 VOL% (42.0-52.0); Hemoglobin 8.9 GM/DL (14.0-18.0)
[2018-01-01] MEDS: VANCOMYCIN 50 MG/ML 60 ML/BOTTLE PO SCH ×4 (00:55→18:09)
[2018-01-01 06:24] LABS: Basophils % 0.4 % (0.0-0.8); Eosinophils # 0.1 10*3/uL (0.0-0.87); Eosinophils % 4.8 % (0.00-10.9); Hematocrit 23.8 VOL% (42.0-52.0); Hemoglobin 8.2 GM/DL (14.0-18.0); Immature Granulocytes % 0.4 %; Immature Granulocytes Absolute 0.01 #; Lymphocytes # 0.5 10*3/uL (1.4-4.0); Lymphocytes % 18.3 % (21.2-54.2); Mean Corpuscular HGB Conc 34.5 GM/DL (32-36); Mean Corpuscular Hemoglobin 30 PG (27-34); Mean Corpuscular Volume 88.1 FL (87-102); Mean Platelet Volume 10.3 FL (9.6-12.0); Monocytes # 0.4 10*3/uL (0.11-0.8); Monocytes % 14.3 % (1.7-12.7); NRBC # 0.02 10*3/uL; Neutrophils # 1.7 10*3/uL (1.4-7.4); Neutrophils % 61.8 % (38.7-73.9); Red Cell Distribution Width 17.8 % (9.3-17.3); White Blood Count 2.7 T/CUMM (4-12)
[2018-01-01 06:25] LABS: Platelet Count 81 T/CUMM (130-400)
[2018-01-01 06:43] LABS: Hypochromasia 1+; Ovalocytes Slight; Platelet Estimate Decreased
[2018-01-01 06:44] LABS: Macrocytosis Slight
[2018-01-01 06:57] LABS: Calcium 7.8 MG/DL (8.5-10.1); Osmolality,Calculated 280.8 MOS/KG (273-304); Potassium 3.4 MMOL/L (3.5-5.1)
[2018-01-01] MEDS: POTASSIUM CHLORIDE 20 MEQ TABLET PO SCH (09:31)
[2018-01-01] MEDS: LACTOBACILLUS ACIDOPHILUS/BULGARICUS CAPLET PO SCH (09:31)
[2018-01-01] MEDS: MAGNESIUM OXIDE 400 MG TABLET PO SCH ×2 (09:32→21:19)
[2018-01-01] MEDS: CALCIUM (CARBONATE)/VITAMIN D 600 MG-400 UNIT TABLET PO SCH ×2 (09:32→21:19)
[2018-01-01] MEDS: metFORMIN 500 MG TABLET PO SCH (09:33)
[2018-01-01] MEDS: MULTIVITAMIN (CENTRUM) TABLET PO SCH (09:33)
[2018-01-01] MEDS: BUMETANIDE 1 MG TABLET PO SCH (09:33)
[2018-01-01] MEDS: LISINOPRIL 20 MG TABLET PO SCH (09:33)
[2018-01-01] MEDS: OXYBUTYNIN XL 10 MG TABLET PO SCH (09:33)
[2018-01-01] MEDS: FERROUS SULFATE 325 MG TABLET PO SCH ×2 (09:34→21:19)
[2018-01-01] MEDS: APIXABAN 5 MG TABLET PO SCH ×2 (09:34→21:19)
[2018-01-01] MEDS: METOPROLOL TARTRATE 25 MG TABLET PO SCH ×2 (09:34→21:19)
[2018-01-01] MEDS: ASCORBIC ACID 500 MG TABLET PO SCH (09:34)
[2018-01-01] MEDS: amLODIPine 5 MG TABLET PO SCH (09:34)
[2018-01-01] MEDS: TAMSULOSIN 0.4 MG CAPSULE PO SCH ×2 (09:34→21:19)
[2018-01-01] MEDS: PANTOPRAZOLE 40 MG TABLET PO SCH (09:34)
[2018-01-01] MEDS: metOLazone 2.5 MG TABLET PO SCH (09:34)
[2018-01-02] MEDS: VANCOMYCIN 50 MG/ML 60 ML/BOTTLE PO SCH ×3 (01:05→13:03)
[2018-01-02 08:26] LABS: Hematocrit 27.9 VOL% (42.0-52.0); Hemoglobin 9.5 GM/DL (14.0-18.0)
[2018-01-02] MEDS: LACTOBACILLUS ACIDOPHILUS/BULGARICUS CAPLET PO SCH (09:26)
[2018-01-02] MEDS: BUMETANIDE 1 MG TABLET PO SCH (09:26)
[2018-01-02] MEDS: metFORMIN 500 MG TABLET PO SCH (09:26)
[2018-01-02] MEDS: LISINOPRIL 20 MG TABLET PO SCH (09:26)
[2018-01-02] MEDS: MULTIVITAMIN (CENTRUM) TABLET PO SCH (09:27)
[2018-01-02] MEDS: OXYBUTYNIN XL 10 MG TABLET PO SCH (09:27)
[2018-01-02] MEDS: MAGNESIUM OXIDE 400 MG TABLET PO SCH (09:27)
[2018-01-02] MEDS: PANTOPRAZOLE 40 MG TABLET PO SCH (09:27)
[2018-01-02] MEDS: TAMSULOSIN 0.4 MG CAPSULE PO SCH (09:27)
[2018-01-02] MEDS: POTASSIUM CHLORIDE 20 MEQ TABLET PO SCH (09:27)
[2018-01-02] MEDS: amLODIPine 5 MG TABLET PO SCH (09:28)
[2018-01-02] MEDS: FERROUS SULFATE 325 MG TABLET PO SCH (09:28)
[2018-01-02] MEDS: METOPROLOL TARTRATE 25 MG TABLET PO SCH (09:28)
[2018-01-02] MEDS: ASCORBIC ACID 500 MG TABLET PO SCH (09:28)
[2018-01-02] MEDS: APIXABAN 5 MG TABLET PO SCH (09:28)
[2018-01-02] MEDS: CALCIUM (CARBONATE)/VITAMIN D 600 MG-400 UNIT TABLET PO SCH (09:46)
[2018-01-02 11:28] VITALS: BP 108/59
== END 2018-01-02 15:20 | DRG 516 ==
LOC: N.OR 04:22 → N.SDSINP 04:24 → N.3E 15:44
PROVIDERS: ADMIT Orthopaedic Surgery; ATTEND Orthopaedic Surgery

== ENCOUNTER 2018-01-12 09:06 | Inpatient (IN) ==
[2018-01-12 10:54] LABS: Apearance,Urine CLEAR (Clear); Bilirubin,Urine Negative (Negative); Blood, Urine Negative (Negative); Glucose,Urine (UA) Negative (Negative); Hyaline Casts,Urine 1 /LPF (0-3); Ketones,Urine Negative (Negative); Mucus,Urine Occasional /LPF (Occasional); Nitrite,Urine Negative (Negative); Protein,Urine Negative; RBC,Urine <1 /HPF (0-4); Urine Color Yellow (Yellow); Urine Specific Gravity 1.011 (1.001-1.035); Urine Urobilinogen < 2.0 EU/DL (0.2-1.0); WBC,Urine 1 /HPF (0-6)
[2018-01-12 11:49] LABS: Basophils % 0.3 % (0.0-0.8); Hematocrit 27.8 VOL% (42.0-52.0); Hemoglobin 9.1 GM/DL (14.0-18.0); Immature Granulocytes Absolute 0.08 #; Lymphocytes # 0.2 10*3/uL (1.4-4.0); Lymphocytes % 2.3 % (21.2-54.2); Mean Corpuscular HGB Conc 32.7 GM/DL (32-36); Mean Corpuscular Hemoglobin 30 PG (27-34); Mean Corpuscular Volume 91.4 FL (87-102); Mean Platelet Volume 9.6 FL (9.6-12.0); Monocytes # 0.3 10*3/uL (0.11-0.8); Monocytes % 4.2 % (1.7-12.7); Neutrophils # 7.2 10*3/uL (1.4-7.4); Neutrophils % 92.2 % (38.7-73.9); Red Blood Count 3.04 MC/CUMM (3.8-5.5); Red Cell Distribution Width 19.8 % (9.3-17.3); White Blood Count 7.8 T/CUMM (4-12)
[2018-01-12 11:50] LABS: Platelet Count 103 T/CUMM (130-400)
[2018-01-12 11:57] LABS: INR 1.7; PT Patient Result 17.7 SECS; Partial Thromboplastin Time 36.7 SECS (0-40)
[2018-01-12 12:09] LABS: Band Neutrophils 3 % (0-10); Hypochromasia 1+; Lymphocytes 4 % (20-55); Platelet Estimate Decreased; Segmented Neutrophils 88 % (50-85); Total Cells Counted 100
[2018-01-12 12:14] LABS: Lactic Acid 2.6 MMOL/L (0.4-2.0)
[2018-01-12 12:20] LABS: Alanine Aminotransferase 19 U/L (16-61); Albumin 2.4 G/DL (3.4-5.0); Alkaline Phosphatase 91 U/L (45-117); Aspartate Amino Transferase 79 U/L (0-37); Blood Urea Nitrogen 34 MG/DL (7-18); Glucose 114 MG/DL (74-106); Osmolality,Calculated 272.5 MOS/KG (273-304); Potassium 4.1 MMOL/L (3.5-5.1); Sodium 132 MMOL/L (136-145); Total Protein 6.2 G/DL (6.4-8.3)
[2018-01-12] MEDS ORDERED: ONDANSETRON 4 MG/2 ML VIAL IV PRN (12:51)
[2018-01-12] MEDS ORDERED: NITROGLYCERIN SL 0.4 MG TABLET SL PRN (12:56)
[2018-01-12] MEDS: SODIUM CHLORIDE 0.9% 1,000 ML IV SCH ×2 (13:43→23:51)
[2018-01-12] MEDS: ACETAMINOPHEN 325 MG TABLET PO PRN ×2 (14:42→23:32)
[2018-01-12] MEDS ORDERED: DEXTROSE 50% 25 GM/50 ML VIAL IV PRN (14:52)
[2018-01-12] MEDS ORDERED: GLUCAGON 1 MG VIAL IM PRN (14:52)
[2018-01-12] MEDS: INSULIN LISPRO 100 UNIT/ML SUBCUT SCH ×2 (15:52→21:57)
[2018-01-12] MEDS: VANCOMYCIN 50 MG/ML 60 ML/BOTTLE PO SCH (17:00)
[2018-01-12] MEDS ORDERED: SODIUM CHLORIDE 0.9% 1,000 ML IV ONE (21:15)
[2018-01-12] MEDS: METOPROLOL TARTRATE 25 MG TABLET PO SCH (21:18)
[2018-01-12] MEDS: DOCUSATE SODIUM 100 MG CAPSULE PO SCH (21:25)
[2018-01-12] MEDS: MAGNESIUM OXIDE 400 MG TABLET PO SCH (21:25)
[2018-01-12] MEDS: APIXABAN 5 MG TABLET PO SCH (21:25)
[2018-01-12] MEDS: TAMSULOSIN 0.4 MG CAPSULE PO SCH (21:25)
[2018-01-12] MEDS: CALCIUM (CARBONATE)/VITAMIN D 600 MG-400 UNIT TABLET PO SCH (21:25)
[2018-01-12] MEDS ORDERED: VANCOMYCIN INJ 1,250 MG in SODIUM CHLORIDE 0.9% 250 ML IV ONE (22:00)
[2018-01-12] MEDS: MEROPENEM 1,000 MG in SODIUM CHLORIDE 0.9% 100 ML IV SCH (23:51)
[2018-01-13] MEDS: VANCOMYCIN 50 MG/ML 60 ML/BOTTLE PO SCH ×5 (00:05→23:50)
[2018-01-13 03:30] LABS: Albumin 2.2 G/DL (3.4-5.0); Bilirubin,Total 1.7 MG/DL (0.2-1.0); Calcium 8.3 MG/DL (8.5-10.1); Osmolality,Calculated 281.1 MOS/KG (273-304); Total Protein 5.7 G/DL (6.4-8.3)
[2018-01-13] MEDS: MEROPENEM 1,000 MG in SODIUM CHLORIDE 0.9% 100 ML IV SCH ×3 (05:56→20:37)
[2018-01-13] MEDS: INSULIN LISPRO 100 UNIT/ML SUBCUT SCH ×4 (07:28→22:01)
[2018-01-13 08:03] LABS: Basophils % 0.4 % (0.0-0.8); Eosinophils % 0.2 % (0.00-10.9); Hematocrit 27.7 VOL% (42.0-52.0); Hemoglobin 9.1 GM/DL (14.0-18.0); Immature Granulocytes % 1.3 %; Immature Granulocytes Absolute 0.06 #; Lymphocytes # 0.2 10*3/uL (1.4-4.0); Lymphocytes % 5.3 % (21.2-54.2); Mean Corpuscular HGB Conc 32.9 GM/DL (32-36); Mean Corpuscular Hemoglobin 30 PG (27-34); Mean Platelet Volume 10.1 FL (9.6-12.0); Monocytes # 0.4 10*3/uL (0.11-0.8); Monocytes % 9.2 % (1.7-12.7); Neutrophils # 3.8 10*3/uL (1.4-7.4); Neutrophils % 83.6 % (38.7-73.9); Red Blood Count 3.01 MC/CUMM (3.8-5.5); Red Cell Distribution Width 20.1 % (9.3-17.3); White Blood Count 4.6 T/CUMM (4-12)
[2018-01-13 08:04] LABS: Platelet Count 88 T/CUMM (130-400)
[2018-01-13 08:24] LABS: Hypochromasia 1+; Platelet Estimate Decreased
[2018-01-13] MEDS ORDERED: PANTOPRAZOLE 40 MG TABLET PO SCH (09:00)
[2018-01-13] MEDS: SODIUM CHLORIDE 0.9% 1,000 ML IV SCH ×2 (09:53→16:41)
[2018-01-13] MEDS: ASCORBIC ACID 500 MG TABLET PO SCH (09:53)
[2018-01-13] MEDS: OXYBUTYNIN XL 10 MG TABLET PO SCH (09:53)
[2018-01-13] MEDS: MULTIVITAMIN (CENTRUM) TABLET PO SCH (09:53)
[2018-01-13] MEDS: metOLazone 2.5 MG TABLET PO SCH (09:53)
[2018-01-13] MEDS: BUMETANIDE 1 MG TABLET PO SCH (09:54)
[2018-01-13] MEDS: POTASSIUM CHLORIDE 20 MEQ TABLET PO SCH (09:54)
[2018-01-13] MEDS: LISINOPRIL 20 MG TABLET PO SCH ×2 (09:54→13:47)
[2018-01-13] MEDS: LACTOBACILLUS ACIDOPHILUS/BULGARICUS CAPLET PO SCH (09:54)
[2018-01-13] MEDS: CALCIUM (CARBONATE)/VITAMIN D 600 MG-400 UNIT TABLET PO SCH ×2 (09:54→20:37)
[2018-01-13] MEDS: MAGNESIUM OXIDE 400 MG TABLET PO SCH ×2 (09:54→20:37)
[2018-01-13 09:55] LABS: Sedimentation Rate-Westergren 68 MM/HR (0-20)
[2018-01-13] MEDS: APIXABAN 5 MG TABLET PO SCH ×2 (09:55→20:37)
[2018-01-13] MEDS: PANTOPRAZOLE 40 MG TABLET PO SCH (09:55)
[2018-01-13] MEDS: metFORMIN 500 MG TABLET PO SCH (09:55)
[2018-01-13] MEDS: TAMSULOSIN 0.4 MG CAPSULE PO SCH ×2 (09:55→20:37)
[2018-01-13] MEDS: DOCUSATE SODIUM 100 MG CAPSULE PO SCH ×2 (09:55→20:37)
[2018-01-13] MEDS: METOPROLOL TARTRATE 25 MG TABLET PO SCH ×2 (09:55→20:37)
[2018-01-13] MEDS: amLODIPine 5 MG TABLET PO SCH ×2 (09:55→13:47)
[2018-01-13] MEDS: FERROUS SULFATE 325 MG TABLET PO SCH (09:55)
[2018-01-13] MEDS ORDERED: SODIUM CHLORIDE 0.9% 1,000 ML IV ONE (13:24)
[2018-01-13] MEDS: ACETAMINOPHEN 325 MG TABLET PO PRN (17:10)
[2018-01-14] MEDS: SODIUM CHLORIDE 0.9% 1,000 ML IV SCH ×3 (01:02→18:04)
[2018-01-14] MEDS: MEROPENEM 1,000 MG in SODIUM CHLORIDE 0.9% 100 ML IV SCH ×2 (04:39→13:30)
[2018-01-14 05:58] LABS: Basophils % 0.7 % (0.0-0.8); Eosinophils # 0.1 10*3/uL (0.0-0.87); Hematocrit 25.2 VOL% (42.0-52.0); Hemoglobin 8.4 GM/DL (14.0-18.0); Immature Granulocytes % 0.3 %; Immature Granulocytes Absolute 0.01 #; Lymphocytes # 0.3 10*3/uL (1.4-4.0); Lymphocytes % 10.5 % (21.2-54.2); Mean Corpuscular HGB Conc 33.3 GM/DL (32-36); Mean Corpuscular Hemoglobin 30 PG (27-34); Mean Platelet Volume 9.3 FL (9.6-12.0); Monocytes # 0.4 10*3/uL (0.11-0.8); Monocytes % 13.2 % (1.7-12.7); Neutrophils # 2.2 10*3/uL (1.4-7.4); Neutrophils % 72.3 % (38.7-73.9); Red Cell Distribution Width 19.6 % (9.3-17.3)
[2018-01-14 06:04] LABS: Platelet Count 83 T/CUMM (130-400)
[2018-01-14] MEDS: VANCOMYCIN 50 MG/ML 60 ML/BOTTLE PO SCH ×4 (06:10→23:47)
[2018-01-14 06:27] LABS: Hypochromasia Slight; Microcytosis 1+; Ovalocytes Few; Target Cells Slight
[2018-01-14 06:28] LABS: Acanthocytes Few; Platelet Estimate Decreased
[2018-01-14] MEDS: INSULIN LISPRO 100 UNIT/ML SUBCUT SCH ×4 (07:37→20:44)
[2018-01-14] MEDS: LACTOBACILLUS ACIDOPHILUS/BULGARICUS CAPLET PO SCH (09:40)
[2018-01-14] MEDS: BUMETANIDE 1 MG TABLET PO SCH (09:41)
[2018-01-14] MEDS: MAGNESIUM OXIDE 400 MG TABLET PO SCH ×2 (09:41→20:44)
[2018-01-14] MEDS: OXYBUTYNIN XL 10 MG TABLET PO SCH (09:41)
[2018-01-14] MEDS: CALCIUM (CARBONATE)/VITAMIN D 600 MG-400 UNIT TABLET PO SCH ×2 (09:41→20:43)
[2018-01-14] MEDS: PANTOPRAZOLE 40 MG TABLET PO SCH (09:41)
[2018-01-14] MEDS: metFORMIN 500 MG TABLET PO SCH (09:41)
[2018-01-14] MEDS: FERROUS SULFATE 325 MG TABLET PO SCH (09:42)
[2018-01-14] MEDS: DOCUSATE SODIUM 100 MG CAPSULE PO SCH ×2 (09:42→20:38)
[2018-01-14] MEDS: APIXABAN 5 MG TABLET PO SCH ×2 (09:42→20:44)
[2018-01-14] MEDS: METOPROLOL TARTRATE 25 MG TABLET PO SCH ×2 (09:42→20:44)
[2018-01-14] MEDS: POTASSIUM CHLORIDE 20 MEQ TABLET PO SCH (09:42)
[2018-01-14] MEDS: ASCORBIC ACID 500 MG TABLET PO SCH (09:42)
[2018-01-14] MEDS: MULTIVITAMIN (CENTRUM) TABLET PO SCH (09:42)
[2018-01-14] MEDS: TAMSULOSIN 0.4 MG CAPSULE PO SCH ×2 (09:42→20:43)
[2018-01-14] MEDS: LISINOPRIL 20 MG TABLET PO SCH (09:43)
[2018-01-14] MEDS: amLODIPine 5 MG TABLET PO SCH (09:43)
[2018-01-14 10:17] LABS: % Iron Saturation 6.7 % (18-50)
[2018-01-14 11:49] LABS: Folate 19.1 NG/ML (5.4-24.0)
[2018-01-14] MEDS: SUCRALFATE 1 GM TABLET PO SCH (18:04)
[2018-01-14] MEDS ORDERED: FAMOTIDINE 20 MG TABLET PO SCH (21:00)
[2018-01-15] MEDS: VANCOMYCIN 50 MG/ML 60 ML/BOTTLE PO SCH ×3 (06:05→17:15)
[2018-01-15 06:27] LABS: Basophils % 0.4 % (0.0-0.8); Eosinophils # 0.1 10*3/uL (0.0-0.87); Eosinophils % 4.4 % (0.00-10.9); Hematocrit 25.8 VOL% (42.0-52.0); Hemoglobin 8.7 GM/DL (14.0-18.0); Immature Granulocytes % 0.4 %; Immature Granulocytes Absolute 0.01 #; Lymphocytes # 0.3 10*3/uL (1.4-4.0); Mean Corpuscular HGB Conc 33.7 GM/DL (32-36); Mean Corpuscular Hemoglobin 30 PG (27-34); Mean Corpuscular Volume 89.6 FL (87-102); Mean Platelet Volume 10.1 FL (9.6-12.0); Monocytes # 0.4 10*3/uL (0.11-0.8); Monocytes % 17.2 % (1.7-12.7); Neutrophils # 1.6 10*3/uL (1.4-7.4); Neutrophils % 65.6 % (38.7-73.9); Platelet Count 88 T/CUMM (130-400); Red Blood Count 2.88 MC/CUMM (3.8-5.5); Red Cell Distribution Width 19.2 % (9.3-17.3); White Blood Count 2.5 T/CUMM (4-12)
[2018-01-15 06:57] LABS: Hypochromasia 1+; Microcytosis 1+; Ovalocytes Few
[2018-01-15 06:58] LABS: Platelet Estimate Decreased
[2018-01-15 07:13] LABS: Lymphocytes 13 % (20-55); Segmented Neutrophils 69 % (50-85); Total Cells Counted 100
[2018-01-15] MEDS: MULTIVITAMIN (CENTRUM) TABLET PO SCH (09:33)
[2018-01-15] MEDS: metFORMIN 500 MG TABLET PO SCH (09:33)
[2018-01-15] MEDS: metOLazone 2.5 MG TABLET PO SCH (09:33)
[2018-01-15] MEDS: BUMETANIDE 1 MG TABLET PO SCH (09:33)
[2018-01-15] MEDS: CALCIUM (CARBONATE)/VITAMIN D 600 MG-400 UNIT TABLET PO SCH ×2 (09:34→22:12)
[2018-01-15] MEDS: SUCRALFATE 1 GM TABLET PO SCH ×3 (09:34→17:14)
[2018-01-15] MEDS: APIXABAN 5 MG TABLET PO SCH ×2 (09:34→22:13)
[2018-01-15] MEDS: ASCORBIC ACID 500 MG TABLET PO SCH (09:34)
[2018-01-15] MEDS: MAGNESIUM OXIDE 400 MG TABLET PO SCH ×2 (09:34→22:12)
[2018-01-15] MEDS: LACTOBACILLUS ACIDOPHILUS/BULGARICUS CAPLET PO SCH (09:34)
[2018-01-15] MEDS: FERROUS SULFATE 325 MG TABLET PO SCH (09:34)
[2018-01-15] MEDS: POTASSIUM CHLORIDE 20 MEQ TABLET PO SCH (09:34)
[2018-01-15] MEDS: TAMSULOSIN 0.4 MG CAPSULE PO SCH ×2 (09:34→22:13)
[2018-01-15] MEDS: INSULIN LISPRO 100 UNIT/ML SUBCUT SCH ×4 (09:35→22:18)
[2018-01-15] MEDS: DOCUSATE SODIUM 100 MG CAPSULE PO SCH ×2 (09:35→22:11)
[2018-01-15] MEDS: METOPROLOL TARTRATE 25 MG TABLET PO SCH ×2 (12:23→22:12)
[2018-01-15] MEDS: amLODIPine 5 MG TABLET PO SCH (12:23)
[2018-01-15] MEDS: OXYBUTYNIN XL 10 MG TABLET PO SCH (12:23)
[2018-01-15] MEDS: FAMOTIDINE 20 MG TABLET PO SCH (22:11)
[2018-01-16] MEDS: VANCOMYCIN 50 MG/ML 60 ML/BOTTLE PO SCH ×4 (00:55→18:04)
[2018-01-16 04:57] LABS: Basophils % 0.9 % (0.0-0.8); Eosinophils # 0.1 10*3/uL (0.0-0.87); Hematocrit 28.4 VOL% (42.0-52.0); Hemoglobin 9.8 GM/DL (14.0-18.0); Immature Granulocytes % 0.9 %; Immature Granulocytes Absolute 0.03 #; Lymphocytes # 0.4 10*3/uL (1.4-4.0); Lymphocytes % 11.5 % (21.2-54.2); Mean Corpuscular HGB Conc 34.5 GM/DL (32-36); Mean Corpuscular Hemoglobin 30 PG (27-34); Mean Corpuscular Volume 87.7 FL (87-102); Mean Platelet Volume 9.1 FL (9.6-12.0); Monocytes # 0.6 10*3/uL (0.11-0.8); Monocytes % 17.6 % (1.7-12.7); Neutrophils # 2.3 10*3/uL (1.4-7.4); Neutrophils % 65.1 % (38.7-73.9); Red Blood Count 3.24 MC/CUMM (3.8-5.5); Red Cell Distribution Width 18.6 % (9.3-17.3); White Blood Count 3.5 T/CUMM (4-12)
[2018-01-16 05:01] LABS: Platelet Count 89 T/CUMM (130-400)
[2018-01-16 05:23] LABS: Band Neutrophils 1 % (0-10); Eosinophils 4 % (0-10); Hypochromasia 1+; Lymphocytes 10 % (20-55); Segmented Neutrophils 74 % (50-85); Total Cells Counted 100
[2018-01-16 05:24] LABS: Microcytosis 1+; Ovalocytes Slight; Platelet Estimate Decreased; Polychromasia Slight
[2018-01-16 08:14] LABS: Albumin 2.2 G/DL (3.4-5.0); Bilirubin,Direct 0.47 MG/DL (0.0-0.20); Bilirubin,Indirect 0.9 MG/DL (0.0-1.0); Bilirubin,Total 1.4 MG/DL (0.2-1.0); Total Protein 6.2 G/DL (6.4-8.3)
[2018-01-16 09:01] LABS: Albumin (SPE) 2.7 G/DL (3.2-5.3); Albumin (SPE) Rel % 49.4 %; Alpha 1 (SPE) 0.2 G/DL (0.1-0.4); Total Protein (Chem) 5.4 G/DL (6.4-8.3)
[2018-01-16] MEDS: SUCRALFATE 1 GM TABLET PO SCH ×3 (09:01→16:18)
[2018-01-16] MEDS: INSULIN LISPRO 100 UNIT/ML SUBCUT SCH ×4 (09:01→21:16)
[2018-01-16 09:02] LABS: Alpha 1 (SPE) Rel % 3.8 %; Alpha 2 (SPE) 0.5 G/DL (0.4-1.0); Alpha 2 (SPE) Rel % 9.5 %; Beta (SPE) 0.5 G/DL (0.5-1.1); Gamma (SPE) 1.5 G/DL (0.7-1.7); Gamma (SPE) Rel % 28.3 %
[2018-01-16] MEDS: DOCUSATE SODIUM 100 MG CAPSULE PO SCH ×2 (09:02→21:13)
[2018-01-16] MEDS: TAMSULOSIN 0.4 MG CAPSULE PO SCH ×2 (09:02→21:13)
[2018-01-16] MEDS: BUMETANIDE 1 MG TABLET PO SCH (09:02)
[2018-01-16] MEDS: ACETAMINOPHEN 325 MG TABLET PO PRN (09:03)
[2018-01-16] MEDS: ASCORBIC ACID 500 MG TABLET PO SCH (09:04)
[2018-01-16] MEDS: METOPROLOL TARTRATE 25 MG TABLET PO SCH ×2 (09:04→21:13)
[2018-01-16] MEDS: OXYBUTYNIN XL 10 MG TABLET PO SCH (09:05)
[2018-01-16] MEDS: metFORMIN 500 MG TABLET PO SCH (09:05)
[2018-01-16] MEDS: CALCIUM (CARBONATE)/VITAMIN D 600 MG-400 UNIT TABLET PO SCH ×2 (09:05→21:13)
[2018-01-16] MEDS: MULTIVITAMIN (CENTRUM) TABLET PO SCH (09:05)
[2018-01-16] MEDS: MAGNESIUM OXIDE 400 MG TABLET PO SCH ×2 (09:05→21:12)
[2018-01-16] MEDS: POTASSIUM CHLORIDE 20 MEQ TABLET PO SCH (09:06)
[2018-01-16] MEDS: FERROUS SULFATE 325 MG TABLET PO SCH (09:06)
[2018-01-16] MEDS: APIXABAN 5 MG TABLET PO SCH ×2 (09:06→21:12)
[2018-01-16] MEDS: amLODIPine 5 MG TABLET PO SCH (09:06)
[2018-01-16] MEDS: LACTOBACILLUS ACIDOPHILUS/BULGARICUS CAPLET PO SCH (09:07)
[2018-01-16] MEDS: FAMOTIDINE 20 MG TABLET PO SCH (21:13)
[2018-01-17] MEDS: VANCOMYCIN 50 MG/ML 60 ML/BOTTLE PO SCH ×3 (00:33→13:17)
[2018-01-17] MEDS: INSULIN LISPRO 100 UNIT/ML SUBCUT SCH ×2 (09:53→12:34)
[2018-01-17] MEDS: amLODIPine 5 MG TABLET PO SCH (09:54)
[2018-01-17] MEDS: MAGNESIUM OXIDE 400 MG TABLET PO SCH (09:54)
[2018-01-17] MEDS: FERROUS SULFATE 325 MG TABLET PO SCH (09:54)
[2018-01-17] MEDS: LACTOBACILLUS ACIDOPHILUS/BULGARICUS CAPLET PO SCH (09:55)
[2018-01-17] MEDS: MULTIVITAMIN (CENTRUM) TABLET PO SCH (09:55)
[2018-01-17] MEDS: metFORMIN 500 MG TABLET PO SCH (09:55)
[2018-01-17] MEDS: metOLazone 2.5 MG TABLET PO SCH (09:55)
[2018-01-17] MEDS: OXYBUTYNIN XL 10 MG TABLET PO SCH (09:55)
[2018-01-17] MEDS: DOCUSATE SODIUM 100 MG CAPSULE PO SCH (09:55)
[2018-01-17] MEDS: TAMSULOSIN 0.4 MG CAPSULE PO SCH (09:55)
[2018-01-17] MEDS: SUCRALFATE 1 GM TABLET PO SCH ×2 (09:56→12:28)
[2018-01-17] MEDS: POTASSIUM CHLORIDE 20 MEQ TABLET PO SCH (09:56)
[2018-01-17] MEDS: METOPROLOL TARTRATE 25 MG TABLET PO SCH (09:56)
[2018-01-17] MEDS: CALCIUM (CARBONATE)/VITAMIN D 600 MG-400 UNIT TABLET PO SCH (09:56)
[2018-01-17] MEDS: BUMETANIDE 1 MG TABLET PO SCH (09:56)
[2018-01-17] MEDS: ASCORBIC ACID 500 MG TABLET PO SCH (09:56)
[2018-01-17] MEDS: APIXABAN 5 MG TABLET PO SCH (09:56)
[2018-01-17 12:01] VITALS: BP 114/65
== END 2018-01-17 15:30 | DRG 864 ==
LOC: EDUNIT# → EDBD → N.ED 09:06 → N.EDINP 12:51 → N.2E 13:11
PROVIDERS: ADMIT Family Medicine; ATTEND Family Medicine

== ENCOUNTER 2018-02-24 03:36 | Inpatient (IN) ==
[2018-02-24 06:14] LABS: Basophils % 0.8 % (0.0-0.8); Eosinophils # 0.1 10*3/uL (0.0-0.87); Eosinophils % 2.2 % (0.00-10.9); Hematocrit 30.9 VOL% (42.0-52.0); Immature Granulocytes % 0.3 %; Immature Granulocytes Absolute 0.01 #; Lymphocytes # 0.5 10*3/uL (1.4-4.0); Lymphocytes % 14.5 % (21.2-54.2); Mean Corpuscular HGB Conc 32.4 GM/DL (32-36); Mean Corpuscular Hemoglobin 29 PG (27-34); Mean Platelet Volume 8.9 FL (9.6-12.0); Monocytes # 0.4 10*3/uL (0.11-0.8); Monocytes % 10.3 % (1.7-12.7); Neutrophils # 2.6 10*3/uL (1.4-7.4); Neutrophils % 71.9 % (38.7-73.9); Red Blood Count 3.51 MC/CUMM (3.8-5.5); Red Cell Distribution Width 18.4 % (9.3-17.3); White Blood Count 3.6 T/CUMM (4-12)
[2018-02-24 06:16] LABS: Platelet Count 102 T/CUMM (130-400)
[2018-02-24 06:17] LABS: Apearance,Urine CLEAR (Clear); Bilirubin,Urine Negative (Negative); Blood, Urine Negative (Negative); Glucose,Urine (UA) Negative (Negative); Hyaline Casts,Urine 1 /LPF (0-3); Ketones,Urine Negative (Negative); Mucus,Urine Occasional /LPF (Occasional); Nitrite,Urine Negative (Negative); Protein,Urine Negative; RBC,Urine <1 /HPF (0-4); Urine Color Straw (Yellow); Urine Specific Gravity 1.005 (1.001-1.035); Urine Urobilinogen < 2.0 EU/DL (0.2-1.0); WBC,Urine <1 /HPF (0-6)
[2018-02-24 06:18] LABS: INR 1.7
[2018-02-24 06:43] LABS: Albumin 2.5 G/DL (3.4-5.0); Calcium 9.2 MG/DL (8.5-10.1); Osmolality,Calculated 283.3 MOS/KG (273-304); Potassium 3.2 MMOL/L (3.5-5.1); Total Protein 6.4 G/DL (6.4-8.3)
[2018-02-24] MEDS ORDERED: ONDANSETRON 4 MG/2 ML VIAL IV PRN (08:23)
[2018-02-24] MEDS ORDERED: DEXTROSE 50% 25 GM/50 ML VIAL IV PRN (08:23)
[2018-02-24] MEDS ORDERED: ACETAMINOPHEN 325 MG TABLET PO PRN ×2 (08:23)
[2018-02-24] MEDS ORDERED: GLUCAGON 1 MG VIAL IM PRN (08:23)
[2018-02-24] MEDS ORDERED: NITROGLYCERIN SL 0.4 MG TABLET SL PRN (08:23)
[2018-02-24] MEDS ORDERED: MULTIVITAMIN (CENTRUM) TABLET PO SCH (09:00)
[2018-02-24] MEDS ORDERED: INFLUENZA VIRUS VACCINE 0.5 ML SYRINGE IM ONE (09:29)
[2018-02-24] MEDS: BUMETANIDE 1 MG TABLET PO SCH (09:58)
[2018-02-24] MEDS: metFORMIN 500 MG TABLET PO SCH (09:58)
[2018-02-24] MEDS: APIXABAN 5 MG TABLET PO SCH ×2 (09:59→20:25)
[2018-02-24] MEDS: MAGNESIUM OXIDE 400 MG TABLET PO SCH ×2 (09:59→20:24)
[2018-02-24] MEDS: FERROUS SULFATE 325 MG TABLET PO SCH (09:59)
[2018-02-24] MEDS: LACTOBACILLUS ACIDOPHILUS/BULGARICUS CAPLET PO SCH (09:59)
[2018-02-24] MEDS: POTASSIUM CHLORIDE 20 MEQ TABLET PO SCH (09:59)
[2018-02-24] MEDS: OXYBUTYNIN XL 10 MG TABLET PO SCH (10:00)
[2018-02-24] MEDS: PANTOPRAZOLE 40 MG TABLET PO SCH (10:00)
[2018-02-24] MEDS: metOLazone 2.5 MG TABLET PO SCH (10:00)
[2018-02-24] MEDS: MULTIVITAMIN (CENTRUM) TABLET PO SCH (10:00)
[2018-02-24] MEDS: CALCIUM (CARBONATE)/VITAMIN D 600 MG-400 UNIT TABLET PO SCH ×2 (10:00→20:25)
[2018-02-24] MEDS: TAMSULOSIN 0.4 MG CAPSULE PO SCH ×2 (10:00→20:25)
[2018-02-24] MEDS: DOCUSATE SODIUM 100 MG CAPSULE PO SCH ×2 (10:00→20:25)
[2018-02-24] MEDS: METOPROLOL TARTRATE 25 MG TABLET PO SCH ×2 (10:00→20:25)
[2018-02-24] MEDS: ASCORBIC ACID 500 MG TABLET PO SCH (10:00)
[2018-02-24] MEDS: amLODIPine 5 MG TABLET PO SCH (10:11)
[2018-02-24] MEDS: SODIUM CHLORIDE 0.9% 1,000 ML IV SCH ×2 (10:17→19:31)
[2018-02-24] MEDS: SUCRALFATE 1 GM TABLET PO SCH ×2 (12:24→16:50)
[2018-02-24] MEDS: INSULIN LISPRO 100 UNIT/ML SUBCUT SCH ×3 (12:25→21:00)
[2018-02-24] MEDS: FAMOTIDINE 20 MG TABLET PO SCH (20:24)
[2018-02-25] MEDS: SODIUM CHLORIDE 0.9% 1,000 ML IV SCH ×2 (03:39→12:30)
[2018-02-25] MEDS: INSULIN LISPRO 100 UNIT/ML SUBCUT SCH ×4 (08:25→23:25)
[2018-02-25] MEDS: FERROUS SULFATE 325 MG TABLET PO SCH (09:21)
[2018-02-25] MEDS: amLODIPine 5 MG TABLET PO SCH (09:21)
[2018-02-25] MEDS: MULTIVITAMIN (CENTRUM) TABLET PO SCH (09:21)
[2018-02-25] MEDS: OXYBUTYNIN XL 10 MG TABLET PO SCH (09:21)
[2018-02-25] MEDS: ASCORBIC ACID 500 MG TABLET PO SCH (09:21)
[2018-02-25] MEDS: CALCIUM (CARBONATE)/VITAMIN D 600 MG-400 UNIT TABLET PO SCH ×2 (09:21→22:27)
[2018-02-25] MEDS: SUCRALFATE 1 GM TABLET PO SCH ×3 (09:21→16:12)
[2018-02-25] MEDS: BUMETANIDE 1 MG TABLET PO SCH (09:21)
[2018-02-25] MEDS: LACTOBACILLUS ACIDOPHILUS/BULGARICUS CAPLET PO SCH (09:21)
[2018-02-25] MEDS: POTASSIUM CHLORIDE 20 MEQ TABLET PO SCH (09:21)
[2018-02-25] MEDS: TAMSULOSIN 0.4 MG CAPSULE PO SCH ×2 (09:22→22:28)
[2018-02-25] MEDS: PANTOPRAZOLE 40 MG TABLET PO SCH (09:22)
[2018-02-25] MEDS: APIXABAN 5 MG TABLET PO SCH ×2 (09:22→22:28)
[2018-02-25] MEDS: DOCUSATE SODIUM 100 MG CAPSULE PO SCH ×2 (09:22→22:28)
[2018-02-25] MEDS: metFORMIN 500 MG TABLET PO SCH (09:22)
[2018-02-25] MEDS: MAGNESIUM OXIDE 400 MG TABLET PO SCH ×2 (09:22→22:27)
[2018-02-25] MEDS: METOPROLOL TARTRATE 25 MG TABLET PO SCH ×2 (09:23→23:26)
[2018-02-25] MEDS: FAMOTIDINE 20 MG TABLET PO SCH (22:27)
[2018-02-26] MEDS: SODIUM CHLORIDE 0.9% 1,000 ML IV SCH ×3 (03:50→16:09)
[2018-02-26] MEDS: INSULIN LISPRO 100 UNIT/ML SUBCUT SCH ×4 (08:09→22:27)
[2018-02-26 08:49] LABS: Basophils % 0.4 % (0.0-0.8); Eosinophils # 0.1 10*3/uL (0.0-0.87); Eosinophils % 2.6 % (0.00-10.9); Hematocrit 31.2 VOL% (42.0-52.0); Immature Granulocytes % 0.4 %; Immature Granulocytes Absolute 0.01 #; Lymphocytes # 0.5 10*3/uL (1.4-4.0); Lymphocytes % 22.1 % (21.2-54.2); Mean Corpuscular HGB Conc 32.1 GM/DL (32-36); Mean Corpuscular Hemoglobin 28 PG (27-34); Mean Corpuscular Volume 87.6 FL (87-102); Mean Platelet Volume 8.8 FL (9.6-12.0); Monocytes # 0.3 10*3/uL (0.11-0.8); Monocytes % 11.3 % (1.7-12.7); Neutrophils # 1.5 10*3/uL (1.4-7.4); Neutrophils % 63.2 % (38.7-73.9); Red Blood Count 3.56 MC/CUMM (3.8-5.5); Red Cell Distribution Width 18.8 % (9.3-17.3); White Blood Count 2.3 T/CUMM (4-12)
[2018-02-26 08:51] LABS: Platelet Count 87 T/CUMM (130-400)
[2018-02-26 09:44] LABS: Hypochromasia 1+; Microcytosis 1+; Ovalocytes Few
[2018-02-26 09:45] LABS: Polychromasia Slight
[2018-02-26 10:28] LABS: Apearance,Urine CLEAR (Clear); Bilirubin,Urine Negative (Negative); Blood, Urine Negative (Negative); Glucose,Urine (UA) Negative (Negative); Ketones,Urine Negative (Negative); Nitrite,Urine Negative (Negative); Protein,Urine Negative; RBC,Urine <1 /HPF (0-4); Urine Color Yellow (Yellow); Urine Specific Gravity 1.011 (1.001-1.035); Urine Urobilinogen < 2.0 EU/DL (0.2-1.0)
[2018-02-26] MEDS: MAGNESIUM OXIDE 400 MG TABLET PO SCH ×2 (10:36→20:35)
[2018-02-26] MEDS: BUMETANIDE 1 MG TABLET PO SCH (10:36)
[2018-02-26] MEDS: MULTIVITAMIN (CENTRUM) TABLET PO SCH (10:36)
[2018-02-26] MEDS: OXYBUTYNIN XL 10 MG TABLET PO SCH (10:36)
[2018-02-26] MEDS: SUCRALFATE 1 GM TABLET PO SCH ×3 (10:36→16:45)
[2018-02-26] MEDS: metOLazone 2.5 MG TABLET PO SCH (10:36)
[2018-02-26] MEDS: TAMSULOSIN 0.4 MG CAPSULE PO SCH ×2 (10:37→20:36)
[2018-02-26] MEDS: APIXABAN 5 MG TABLET PO SCH ×2 (10:37→20:35)
[2018-02-26] MEDS: CALCIUM (CARBONATE)/VITAMIN D 600 MG-400 UNIT TABLET PO SCH ×2 (10:37→20:35)
[2018-02-26] MEDS: metFORMIN 500 MG TABLET PO SCH (10:37)
[2018-02-26] MEDS: DOCUSATE SODIUM 100 MG CAPSULE PO SCH ×2 (10:37→20:35)
[2018-02-26] MEDS: LACTOBACILLUS ACIDOPHILUS/BULGARICUS CAPLET PO SCH (10:37)
[2018-02-26] MEDS: ASCORBIC ACID 500 MG TABLET PO SCH (10:37)
[2018-02-26] MEDS: PANTOPRAZOLE 40 MG TABLET PO SCH (10:37)
[2018-02-26] MEDS: FERROUS SULFATE 325 MG TABLET PO SCH (10:37)
[2018-02-26] MEDS: POTASSIUM CHLORIDE 20 MEQ TABLET PO SCH (10:37)
[2018-02-26] MEDS: amLODIPine 5 MG TABLET PO SCH (10:38)
[2018-02-26] MEDS: METOPROLOL TARTRATE 25 MG TABLET PO SCH ×2 (10:38→20:36)
[2018-02-26] MEDS: FAMOTIDINE 20 MG TABLET PO SCH (20:35)
[2018-02-27] MEDS: SODIUM CHLORIDE 0.9% 1,000 ML IV SCH ×2 (00:30→16:41)
[2018-02-27 07:38] LABS: Basophils % 0.7 % (0.0-0.8); Eosinophils # 0.1 10*3/uL (0.0-0.87); Eosinophils % 3.1 % (0.00-10.9); Hematocrit 31.9 VOL% (42.0-52.0); Hemoglobin 10.3 GM/DL (14.0-18.0); Immature Granulocytes % 0.3 %; Immature Granulocytes Absolute 0.01 #; Lymphocytes # 0.5 10*3/uL (1.4-4.0); Lymphocytes % 16.9 % (21.2-54.2); Mean Corpuscular HGB Conc 32.3 GM/DL (32-36); Mean Corpuscular Hemoglobin 28 PG (27-34); Mean Corpuscular Volume 87.6 FL (87-102); Mean Platelet Volume 9.8 FL (9.6-12.0); Monocytes # 0.3 10*3/uL (0.11-0.8); Platelet Count 98 T/CUMM (130-400); Red Blood Count 3.64 MC/CUMM (3.8-5.5); Red Cell Distribution Width 18.9 % (9.3-17.3); White Blood Count 2.9 T/CUMM (4-12)
[2018-02-27] MEDS: INSULIN LISPRO 100 UNIT/ML SUBCUT SCH ×4 (07:48→22:01)
[2018-02-27 07:56] LABS: Albumin 2.4 G/DL (3.4-5.0); Bilirubin,Direct 0.93 MG/DL (0.0-0.20); Bilirubin,Indirect 1.2 MG/DL (0.0-1.0); Bilirubin,Total 2.1 MG/DL (0.2-1.0); Total Protein 6.6 G/DL (6.4-8.3)
[2018-02-27 08:02] LABS: Calcium 8.9 MG/DL (8.5-10.1); Osmolality,Calculated 282.3 MOS/KG (273-304); Potassium 3.1 MMOL/L (3.5-5.1)
[2018-02-27] MEDS: CALCIUM (CARBONATE)/VITAMIN D 600 MG-400 UNIT TABLET PO SCH ×2 (08:31→22:00)
[2018-02-27] MEDS: metFORMIN 500 MG TABLET PO SCH (08:31)
[2018-02-27] MEDS: DOCUSATE SODIUM 100 MG CAPSULE PO SCH ×2 (08:31→21:59)
[2018-02-27] MEDS: MAGNESIUM OXIDE 400 MG TABLET PO SCH ×2 (08:31→21:59)
[2018-02-27] MEDS: FERROUS SULFATE 325 MG TABLET PO SCH (08:31)
[2018-02-27] MEDS: BUMETANIDE 1 MG TABLET PO SCH (08:31)
[2018-02-27] MEDS: APIXABAN 5 MG TABLET PO SCH ×2 (08:32→21:59)
[2018-02-27] MEDS: POTASSIUM CHLORIDE 20 MEQ TABLET PO SCH (08:32)
[2018-02-27] MEDS: ASCORBIC ACID 500 MG TABLET PO SCH (08:32)
[2018-02-27] MEDS: METOPROLOL TARTRATE 25 MG TABLET PO SCH ×2 (08:32→22:00)
[2018-02-27] MEDS: SUCRALFATE 1 GM TABLET PO SCH ×3 (08:32→16:41)
[2018-02-27] MEDS: TAMSULOSIN 0.4 MG CAPSULE PO SCH ×2 (08:32→21:59)
[2018-02-27] MEDS: MULTIVITAMIN (CENTRUM) TABLET PO SCH (08:32)
[2018-02-27] MEDS: PANTOPRAZOLE 40 MG TABLET PO SCH (08:32)
[2018-02-27] MEDS: LACTOBACILLUS ACIDOPHILUS/BULGARICUS CAPLET PO SCH (08:32)
[2018-02-27] MEDS: amLODIPine 5 MG TABLET PO SCH (08:32)
[2018-02-27 10:43] LABS: Platelet Estimate Decreased
[2018-02-27 10:44] LABS: Anisocytosis 1+; Poikilocytosis Slight
[2018-02-27] MEDS: FAMOTIDINE 20 MG TABLET PO SCH (21:59)
[2018-02-28] MEDS: SODIUM CHLORIDE 0.9% 1,000 ML IV SCH ×2 (01:00→09:52)
[2018-02-28 06:42] LABS: % Iron Saturation 26.9 % (18-50); Ferritin 142.3 ng/ml (26-388)
[2018-02-28 07:04] LABS: Folate > 24.0 NG/ML (5.4-24.0); Vitamin B12 1944 PG/ML (211-911)
[2018-02-28] MEDS: INSULIN LISPRO 100 UNIT/ML SUBCUT SCH ×4 (08:19→20:22)
[2018-02-28 09:12] LABS: Hepatitis A Ab IgM Quant < 0.02 Index; Hepatitis A Ab IgM Result Negative (Negative); Hepatitis B Core IgM Quant 0.13 Index; Hepatitis B Core IgM Result Negative (Negative); Hepatitis B Surface Ag Quant < 0.10 Index; Hepatitis B Surface Ag Result Negative (Negative); Hepatitis C Virus Ab Quant 0.16 Index; Hepatitis C Virus Ab Result Negative (Negative)
[2018-02-28] MEDS: POTASSIUM CHLORIDE 20 MEQ TABLET PO SCH (09:50)
[2018-02-28] MEDS: MULTIVITAMIN (CENTRUM) TABLET PO SCH (09:51)
[2018-02-28] MEDS: SUCRALFATE 1 GM TABLET PO SCH ×3 (09:51→15:58)
[2018-02-28] MEDS: LACTOBACILLUS ACIDOPHILUS/BULGARICUS CAPLET PO SCH (09:51)
[2018-02-28] MEDS: metOLazone 2.5 MG TABLET PO SCH (09:51)
[2018-02-28] MEDS: ASCORBIC ACID 500 MG TABLET PO SCH (09:51)
[2018-02-28] MEDS: TAMSULOSIN 0.4 MG CAPSULE PO SCH ×2 (09:51→20:24)
[2018-02-28] MEDS: METOPROLOL TARTRATE 25 MG TABLET PO SCH ×2 (09:51→20:27)
[2018-02-28] MEDS: metFORMIN 500 MG TABLET PO SCH (09:51)
[2018-02-28] MEDS: APIXABAN 5 MG TABLET PO SCH (09:51)
[2018-02-28] MEDS: PANTOPRAZOLE 40 MG TABLET PO SCH (09:51)
[2018-02-28] MEDS: BUMETANIDE 1 MG TABLET PO SCH (09:51)
[2018-02-28] MEDS: FERROUS SULFATE 325 MG TABLET PO SCH (09:51)
[2018-02-28] MEDS: CALCIUM (CARBONATE)/VITAMIN D 600 MG-400 UNIT TABLET PO SCH ×2 (09:51→20:25)
[2018-02-28] MEDS: DOCUSATE SODIUM 100 MG CAPSULE PO SCH ×2 (09:51→20:23)
[2018-02-28] MEDS: amLODIPine 5 MG TABLET PO SCH (09:52)
[2018-02-28] MEDS: MAGNESIUM OXIDE 400 MG TABLET PO SCH ×2 (09:52→20:23)
[2018-02-28 14:08] LABS: INR 1.9; PT Patient Result 19.6 SECS; Partial Thromboplastin Time 36.6 SECS (0-40)
[2018-02-28] MEDS: FAMOTIDINE 20 MG TABLET PO SCH (20:24)
[2018-03-01 04:01] LABS: Basophils % 0.6 % (0.0-0.8); Eosinophils # 0.1 10*3/uL (0.0-0.87); Eosinophils % 2.7 % (0.00-10.9); Hematocrit 32.9 VOL% (42.0-52.0); Hemoglobin 10.5 GM/DL (14.0-18.0); Immature Granulocytes % 0.3 %; Immature Granulocytes Absolute 0.01 #; Lymphocytes # 0.7 10*3/uL (1.4-4.0); Lymphocytes % 20.4 % (21.2-54.2); Mean Corpuscular HGB Conc 31.9 GM/DL (32-36); Mean Corpuscular Hemoglobin 28 PG (27-34); Mean Corpuscular Volume 86.8 FL (87-102); Mean Platelet Volume 9.2 FL (9.6-12.0); Monocytes # 0.4 10*3/uL (0.11-0.8); Monocytes % 11.9 % (1.7-12.7); Neutrophils # 2.1 10*3/uL (1.4-7.4); Neutrophils % 64.1 % (38.7-73.9); Red Blood Count 3.79 MC/CUMM (3.8-5.5); White Blood Count 3.3 T/CUMM (4-12)
[2018-03-01 04:04] LABS: INR 1.7; PT Patient Result 18.1 SECS
[2018-03-01 04:13] LABS: Platelet Count 94 T/CUMM (130-400)
[2018-03-01 04:32] LABS: Albumin 2.7 G/DL (3.4-5.0); Bilirubin,Direct 0.99 MG/DL (0.0-0.20); Bilirubin,Indirect 1.8 MG/DL (0.0-1.0); Bilirubin,Total 2.8 MG/DL (0.2-1.0); Total Protein 6.8 G/DL (6.4-8.3)
[2018-03-01 06:36] LABS: Hypochromasia 1+; Platelet Estimate Decreased; Polychromasia Few
[2018-03-01] MEDS: SUCRALFATE 1 GM TABLET PO SCH ×3 (11:26→18:14)
[2018-03-01] MEDS: INSULIN LISPRO 100 UNIT/ML SUBCUT SCH ×4 (11:26→20:36)
[2018-03-01] MEDS: DOCUSATE SODIUM 100 MG CAPSULE PO SCH ×2 (11:30→20:32)
[2018-03-01] MEDS: metFORMIN 500 MG TABLET PO SCH (11:30)
[2018-03-01] MEDS: MULTIVITAMIN (CENTRUM) TABLET PO SCH (11:30)
[2018-03-01] MEDS: LACTOBACILLUS ACIDOPHILUS/BULGARICUS CAPLET PO SCH (11:30)
[2018-03-01] MEDS: POTASSIUM CHLORIDE 20 MEQ TABLET PO SCH (11:31)
[2018-03-01] MEDS: BUMETANIDE 1 MG TABLET PO SCH (11:31)
[2018-03-01] MEDS: ASCORBIC ACID 500 MG TABLET PO SCH (11:31)
[2018-03-01] MEDS: MAGNESIUM OXIDE 400 MG TABLET PO SCH ×2 (11:31→20:32)
[2018-03-01] MEDS: PANTOPRAZOLE 40 MG TABLET PO SCH (11:31)
[2018-03-01] MEDS: METOPROLOL TARTRATE 25 MG TABLET PO SCH ×2 (11:32→20:32)
[2018-03-01] MEDS: CALCIUM (CARBONATE)/VITAMIN D 600 MG-400 UNIT TABLET PO SCH ×2 (11:32→20:32)
[2018-03-01] MEDS: amLODIPine 5 MG TABLET PO SCH (11:32)
[2018-03-01] MEDS: TAMSULOSIN 0.4 MG CAPSULE PO SCH ×2 (11:32→20:32)
[2018-03-01] MEDS: FERROUS SULFATE 325 MG TABLET PO SCH (11:33)
[2018-03-01] MEDS: FAMOTIDINE 20 MG TABLET PO SCH (20:31)
[2018-03-02] MEDS: LACTULOSE 20 GM/30 ML UDCUP PO PRN ×2 (02:11→09:17)
[2018-03-02] MEDS: QUEtiapine 25 MG TABLET PO SCH ×2 (02:11→20:54)
[2018-03-02 06:40] LABS: Albumin 2.5 G/DL (3.4-5.0); Bilirubin,Total 2.4 MG/DL (0.2-1.0); Calcium 8.9 MG/DL (8.5-10.1); Osmolality,Calculated 279.5 MOS/KG (273-304); Potassium 3.1 MMOL/L (3.5-5.1); Total Protein 6.5 G/DL (6.4-8.3)
[2018-03-02] MEDS: INSULIN LISPRO 100 UNIT/ML SUBCUT SCH ×4 (08:43→21:00)
[2018-03-02] MEDS: MAGNESIUM OXIDE 400 MG TABLET PO SCH ×2 (09:15→20:53)
[2018-03-02] MEDS: SUCRALFATE 1 GM TABLET PO SCH ×3 (09:15→15:44)
[2018-03-02] MEDS: amLODIPine 5 MG TABLET PO SCH (09:16)
[2018-03-02] MEDS: BUMETANIDE 1 MG TABLET PO SCH (09:16)
[2018-03-02] MEDS: LACTOBACILLUS ACIDOPHILUS/BULGARICUS CAPLET PO SCH (09:16)
[2018-03-02] MEDS: POTASSIUM CHLORIDE 20 MEQ TABLET PO SCH (09:16)
[2018-03-02] MEDS: PANTOPRAZOLE 40 MG TABLET PO SCH (09:16)
[2018-03-02] MEDS: DOCUSATE SODIUM 100 MG CAPSULE PO SCH ×2 (09:16→20:55)
[2018-03-02] MEDS: ASCORBIC ACID 500 MG TABLET PO SCH (09:17)
[2018-03-02] MEDS: METOPROLOL TARTRATE 25 MG TABLET PO SCH ×2 (09:17→20:55)
[2018-03-02] MEDS: MULTIVITAMIN (CENTRUM) TABLET PO SCH (09:17)
[2018-03-02] MEDS: CALCIUM (CARBONATE)/VITAMIN D 600 MG-400 UNIT TABLET PO SCH ×2 (09:17→20:53)
[2018-03-02] MEDS: TAMSULOSIN 0.4 MG CAPSULE PO SCH ×2 (09:17→20:55)
[2018-03-02] MEDS: FERROUS SULFATE 325 MG TABLET PO SCH (09:17)
[2018-03-02] MEDS ORDERED: POTASSIUM CHLORIDE 20 MEQ TABLET PO ONE (09:50)
[2018-03-02] MEDS ORDERED: MAGNESIUM SULF RIDER 2 GM in PREMIX 1 EACH IV ONE (10:14)
[2018-03-02] MEDS: LACTULOSE 20 GM/30 ML UDCUP PO SCH ×8 (12:43→23:06)
[2018-03-02] MEDS: RIFAXIMIN 550 MG TABLET PO SCH ×2 (12:57→20:52)
[2018-03-02] MEDS: cefTRIAXone 500 MG in SYRINGE 1 EACH IV SCH (15:48)
[2018-03-02] MEDS: POTASSIUM CHLORIDE RIDER 10 MEQ in PREMIX 1 EACH IV PRN (18:34)
[2018-03-02] MEDS: FAMOTIDINE 20 MG TABLET PO SCH (20:53)
[2018-03-03] MEDS: LACTULOSE 20 GM/30 ML UDCUP PO SCH ×5 (01:49→21:38)
[2018-03-03 03:27] LABS: Basophils % 1.1 % (0.0-0.8); Eosinophils # 0.1 10*3/uL (0.0-0.87); Eosinophils % 3.7 % (0.00-10.9); Hematocrit 29.9 VOL% (42.0-52.0); Hemoglobin 9.8 GM/DL (14.0-18.0); Immature Granulocytes % 0.4 %; Immature Granulocytes Absolute 0.01 #; Lymphocytes # 0.5 10*3/uL (1.4-4.0); Mean Corpuscular HGB Conc 32.8 GM/DL (32-36); Mean Corpuscular Hemoglobin 29 PG (27-34); Mean Corpuscular Volume 87.7 FL (87-102); Mean Platelet Volume 10.1 FL (9.6-12.0); Monocytes # 0.3 10*3/uL (0.11-0.8); Monocytes % 11.2 % (1.7-12.7); Neutrophils # 1.7 10*3/uL (1.4-7.4); Neutrophils % 64.6 % (38.7-73.9); Red Blood Count 3.41 MC/CUMM (3.8-5.5); Red Cell Distribution Width 19.2 % (9.3-17.3); White Blood Count 2.7 T/CUMM (4-12)
[2018-03-03 03:28] LABS: Platelet Count 87 T/CUMM (130-400)
[2018-03-03 03:55] LABS: Albumin 2.2 G/DL (3.4-5.0); Bilirubin,Total 1.9 MG/DL (0.2-1.0); Calcium 8.7 MG/DL (8.5-10.1); Osmolality,Calculated 287.8 MOS/KG (273-304); Potassium 2.9 MMOL/L (3.5-5.1)
[2018-03-03 03:56] LABS: % Iron Saturation 25.9 % (18-50)
[2018-03-03] MEDS: POTASSIUM CHLORIDE RIDER 10 MEQ in PREMIX 1 EACH IV PRN ×5 (03:57→11:41)
[2018-03-03 04:09] LABS: Elliptocytes 1+; Hypochromasia 1+; Platelet Estimate Decreased
[2018-03-03 04:10] LABS: Polychromasia Few
[2018-03-03] MEDS: RIFAXIMIN 550 MG TABLET PO SCH ×2 (09:38→21:38)
[2018-03-03] MEDS: MAGNESIUM OXIDE 400 MG TABLET PO SCH ×2 (09:38→21:37)
[2018-03-03] MEDS: metOLazone 2.5 MG TABLET PO SCH (09:39)
[2018-03-03] MEDS: PANTOPRAZOLE 40 MG TABLET PO SCH (09:39)
[2018-03-03] MEDS: LACTOBACILLUS ACIDOPHILUS/BULGARICUS CAPLET PO SCH (09:39)
[2018-03-03] MEDS: MULTIVITAMIN (CENTRUM) TABLET PO SCH (09:39)
[2018-03-03] MEDS: FERROUS SULFATE 325 MG TABLET PO SCH (09:39)
[2018-03-03] MEDS: DOCUSATE SODIUM 100 MG CAPSULE PO SCH (09:39)
[2018-03-03] MEDS: CALCIUM (CARBONATE)/VITAMIN D 600 MG-400 UNIT TABLET PO SCH ×2 (09:39→21:37)
[2018-03-03] MEDS: SUCRALFATE 1 GM TABLET PO SCH ×3 (09:39→16:38)
[2018-03-03] MEDS: METOPROLOL TARTRATE 25 MG TABLET PO SCH ×2 (09:39→21:38)
[2018-03-03] MEDS: ASCORBIC ACID 500 MG TABLET PO SCH (09:39)
[2018-03-03] MEDS: POTASSIUM CHLORIDE 20 MEQ TABLET PO SCH (09:39)
[2018-03-03] MEDS: BUMETANIDE 1 MG TABLET PO SCH (09:39)
[2018-03-03] MEDS: amLODIPine 5 MG TABLET PO SCH (09:39)
[2018-03-03] MEDS: TAMSULOSIN 0.4 MG CAPSULE PO SCH ×2 (09:40→21:38)
[2018-03-03] MEDS: INSULIN LISPRO 100 UNIT/ML SUBCUT SCH ×4 (09:43→21:38)
[2018-03-03] MEDS: cefTRIAXone 500 MG in SYRINGE 1 EACH IV SCH (10:29)
[2018-03-03] MEDS: QUEtiapine 25 MG TABLET PO SCH (21:38)
[2018-03-03] MEDS: FAMOTIDINE 20 MG TABLET PO SCH (21:43)
[2018-03-04 06:03] LABS: Albumin 2.3 G/DL (3.4-5.0); Calcium 8.6 MG/DL (8.5-10.1); Osmolality,Calculated 280.4 MOS/KG (273-304); Potassium 2.9 MMOL/L (3.5-5.1); Total Protein 6.1 G/DL (6.4-8.3)
[2018-03-04] MEDS: SUCRALFATE 1 GM TABLET PO SCH ×3 (06:58→16:48)
[2018-03-04] MEDS: MULTIVITAMIN (CENTRUM) TABLET PO SCH (08:59)
[2018-03-04] MEDS: RIFAXIMIN 550 MG TABLET PO SCH ×2 (08:59→22:31)
[2018-03-04] MEDS: BUMETANIDE 1 MG TABLET PO SCH (08:59)
[2018-03-04] MEDS: LACTULOSE 20 GM/30 ML UDCUP PO SCH ×2 (08:59→22:31)
[2018-03-04] MEDS: LACTOBACILLUS ACIDOPHILUS/BULGARICUS CAPLET PO SCH (08:59)
[2018-03-04] MEDS: CALCIUM (CARBONATE)/VITAMIN D 600 MG-400 UNIT TABLET PO SCH ×2 (08:59→22:32)
[2018-03-04] MEDS: METOPROLOL TARTRATE 25 MG TABLET PO SCH ×2 (09:00→22:33)
[2018-03-04] MEDS: MAGNESIUM OXIDE 400 MG TABLET PO SCH ×2 (09:00→22:31)
[2018-03-04] MEDS: amLODIPine 5 MG TABLET PO SCH (09:00)
[2018-03-04] MEDS: ASCORBIC ACID 500 MG TABLET PO SCH (09:00)
[2018-03-04] MEDS: FERROUS SULFATE 325 MG TABLET PO SCH (09:00)
[2018-03-04] MEDS: TAMSULOSIN 0.4 MG CAPSULE PO SCH ×2 (09:00→22:32)
[2018-03-04] MEDS: PANTOPRAZOLE 40 MG TABLET PO SCH (09:00)
[2018-03-04] MEDS: POTASSIUM CHLORIDE 20 MEQ TABLET PO SCH ×2 (09:00→22:33)
[2018-03-04] MEDS: POTASSIUM CHLORIDE RIDER 10 MEQ in PREMIX 1 EACH IV PRN ×5 (09:01→18:58)
[2018-03-04] MEDS: INSULIN LISPRO 100 UNIT/ML SUBCUT SCH ×4 (09:11→22:33)
[2018-03-04] MEDS: cefTRIAXone 500 MG in SYRINGE 1 EACH IV SCH (10:41)
[2018-03-04] MEDS: FAMOTIDINE 20 MG TABLET PO SCH (22:31)
[2018-03-04] MEDS: QUEtiapine 25 MG TABLET PO SCH (22:32)
[2018-03-05 05:50] LABS: Albumin 2.2 G/DL (3.4-5.0); Bilirubin,Direct 0.68 MG/DL (0.0-0.20); Bilirubin,Total 1.7 MG/DL (0.2-1.0); Calcium 8.3 MG/DL (8.5-10.1); Osmolality,Calculated 280.3 MOS/KG (273-304); Potassium 2.9 MMOL/L (3.5-5.1); Total Protein 6.1 G/DL (6.4-8.3)
[2018-03-05] MEDS: SUCRALFATE 1 GM TABLET PO SCH ×3 (06:44→16:44)
[2018-03-05] MEDS: INSULIN LISPRO 100 UNIT/ML SUBCUT SCH ×4 (07:31→20:39)
[2018-03-05] MEDS: RIFAXIMIN 550 MG TABLET PO SCH ×2 (08:24→20:34)
[2018-03-05] MEDS: MULTIVITAMIN (CENTRUM) TABLET PO SCH (08:24)
[2018-03-05] MEDS: TAMSULOSIN 0.4 MG CAPSULE PO SCH ×2 (08:24→20:34)
[2018-03-05] MEDS: LACTOBACILLUS ACIDOPHILUS/BULGARICUS CAPLET PO SCH (08:24)
[2018-03-05] MEDS: METOPROLOL TARTRATE 25 MG TABLET PO SCH ×2 (08:24→20:34)
[2018-03-05] MEDS: LACTULOSE 20 GM/30 ML UDCUP PO SCH ×2 (08:24→20:34)
[2018-03-05] MEDS: PANTOPRAZOLE 40 MG TABLET PO SCH (08:24)
[2018-03-05] MEDS: MAGNESIUM OXIDE 400 MG TABLET PO SCH ×2 (08:24→20:33)
[2018-03-05] MEDS: POTASSIUM CHLORIDE 8 MEQ CAPSULE PO SCH ×3 (08:24→20:33)
[2018-03-05] MEDS: BUMETANIDE 1 MG TABLET PO SCH (08:24)
[2018-03-05] MEDS: ASCORBIC ACID 500 MG TABLET PO SCH (08:25)
[2018-03-05] MEDS: FERROUS SULFATE 325 MG TABLET PO SCH (08:25)
[2018-03-05] MEDS: CALCIUM (CARBONATE)/VITAMIN D 600 MG-400 UNIT TABLET PO SCH ×2 (08:25→20:33)
[2018-03-05] MEDS: metOLazone 2.5 MG TABLET PO SCH (08:33)
[2018-03-05] MEDS: amLODIPine 5 MG TABLET PO SCH (08:33)
[2018-03-05] MEDS: cefTRIAXone 500 MG in SYRINGE 1 EACH IV SCH (11:31)
[2018-03-05] MEDS: POTASSIUM CHLORIDE RIDER 10 MEQ in PREMIX 1 EACH IV PRN ×4 (16:44→23:06)
[2018-03-05] MEDS: FAMOTIDINE 20 MG TABLET PO SCH (20:33)
[2018-03-05] MEDS: QUEtiapine 25 MG TABLET PO SCH (20:34)
[2018-03-06] MEDS: POTASSIUM CHLORIDE RIDER 10 MEQ in PREMIX 1 EACH IV PRN ×6 (01:14→19:35)
[2018-03-06 06:05] LABS: Calcium 8.6 MG/DL (8.5-10.1); Osmolality,Calculated 275.7 MOS/KG (273-304); Potassium 2.7 MMOL/L (3.5-5.1)
[2018-03-06 06:32] LABS: Albumin 2.2 G/DL (3.4-5.0); Bilirubin,Direct 0.56 MG/DL (0.0-0.20); Bilirubin,Total 1.6 MG/DL (0.2-1.0); Total Protein 5.9 G/DL (6.4-8.3)
[2018-03-06] MEDS ORDERED: POTASSIUM CHLORIDE RIDER 10 MEQ in PREMIX 1 EACH IV PRN (06:39)
[2018-03-06] MEDS: INSULIN LISPRO 100 UNIT/ML SUBCUT SCH ×4 (08:05→21:28)
[2018-03-06] MEDS: METOPROLOL TARTRATE 25 MG TABLET PO SCH ×2 (09:51→21:23)
[2018-03-06] MEDS: BUMETANIDE 1 MG TABLET PO SCH (09:51)
[2018-03-06] MEDS: MULTIVITAMIN (CENTRUM) TABLET PO SCH (09:52)
[2018-03-06] MEDS: PANTOPRAZOLE 40 MG TABLET PO SCH (09:52)
[2018-03-06] MEDS: SUCRALFATE 1 GM TABLET PO SCH ×3 (09:52→16:36)
[2018-03-06] MEDS: ASCORBIC ACID 500 MG TABLET PO SCH (09:52)
[2018-03-06] MEDS: CALCIUM (CARBONATE)/VITAMIN D 600 MG-400 UNIT TABLET PO SCH ×2 (09:52→21:22)
[2018-03-06] MEDS: MAGNESIUM OXIDE 400 MG TABLET PO SCH ×2 (09:52→21:22)
[2018-03-06] MEDS: TAMSULOSIN 0.4 MG CAPSULE PO SCH ×2 (09:52→21:23)
[2018-03-06] MEDS: LACTOBACILLUS ACIDOPHILUS/BULGARICUS CAPLET PO SCH (09:52)
[2018-03-06] MEDS: amLODIPine 5 MG TABLET PO SCH (09:52)
[2018-03-06] MEDS: POTASSIUM CHLORIDE 8 MEQ CAPSULE PO SCH ×3 (09:52→21:22)
[2018-03-06] MEDS: LACTULOSE 20 GM/30 ML UDCUP PO SCH ×2 (09:53→21:21)
[2018-03-06] MEDS: RIFAXIMIN 550 MG TABLET PO SCH ×2 (09:53→21:23)
[2018-03-06] MEDS: FERROUS SULFATE 325 MG TABLET PO SCH (09:53)
[2018-03-06] MEDS ORDERED: MAGNESIUM SULF RIDER 2 GM in PREMIX 1 EACH IV ONE (11:00)
[2018-03-06] MEDS ORDERED: TUBERCULIN SKIN TEST 0.1 ML SYRINGE INTRADERM ONE (11:30)
[2018-03-06] MEDS: cefTRIAXone 500 MG in SYRINGE 1 EACH IV SCH (12:09)
[2018-03-06] MEDS: FAMOTIDINE 20 MG TABLET PO SCH (21:22)
[2018-03-06] MEDS: QUEtiapine 25 MG TABLET PO SCH (21:22)
[2018-03-07] MEDS: POTASSIUM CHLORIDE RIDER 10 MEQ in PREMIX 1 EACH IV PRN ×6 (01:05→09:21)
[2018-03-07 05:54] LABS: Calcium 8.4 MG/DL (8.5-10.1); Osmolality,Calculated 274.8 MOS/KG (273-304); Potassium 2.7 MMOL/L (3.5-5.1)
[2018-03-07] MEDS: INSULIN LISPRO 100 UNIT/ML SUBCUT SCH ×2 (08:00→13:03)
[2018-03-07] MEDS: SUCRALFATE 1 GM TABLET PO SCH ×2 (12:46→12:55)
[2018-03-07] MEDS: POTASSIUM CHLORIDE 8 MEQ CAPSULE PO SCH ×2 (12:47→14:01)
[2018-03-07] MEDS: MAGNESIUM OXIDE 400 MG TABLET PO SCH (12:54)
[2018-03-07] MEDS: BUMETANIDE 1 MG TABLET PO SCH (12:54)
[2018-03-07] MEDS: MULTIVITAMIN (CENTRUM) TABLET PO SCH (12:55)
[2018-03-07] MEDS: RIFAXIMIN 550 MG TABLET PO SCH (12:55)
[2018-03-07] MEDS: metOLazone 2.5 MG TABLET PO SCH (12:55)
[2018-03-07] MEDS: FERROUS SULFATE 325 MG TABLET PO SCH (12:55)
[2018-03-07] MEDS: CALCIUM (CARBONATE)/VITAMIN D 600 MG-400 UNIT TABLET PO SCH (12:55)
[2018-03-07] MEDS: ASCORBIC ACID 500 MG TABLET PO SCH (12:56)
[2018-03-07] MEDS: amLODIPine 5 MG TABLET PO SCH (12:56)
[2018-03-07] MEDS: TAMSULOSIN 0.4 MG CAPSULE PO SCH (12:56)
[2018-03-07] MEDS: LACTOBACILLUS ACIDOPHILUS/BULGARICUS CAPLET PO SCH (12:56)
[2018-03-07] MEDS: METOPROLOL TARTRATE 25 MG TABLET PO SCH (12:56)
[2018-03-07] MEDS: PANTOPRAZOLE 40 MG TABLET PO SCH (12:56)
[2018-03-07] MEDS: cefTRIAXone 500 MG in SYRINGE 1 EACH IV SCH (12:57)
[2018-03-07] MEDS: LACTULOSE 20 GM/30 ML UDCUP PO SCH (12:57)
[2018-03-07 13:16] VITALS: BP 90/53
== END 2018-03-07 15:24 | DRG 92 ==
LOC: EDBD → EDUNIT# → N.ED 03:36 → N.EDINP 06:51 → N.2E 07:55
PROVIDERS: ADMIT Family Medicine; ATTEND Family Medicine

== ENCOUNTER 2018-04-06 14:31 | Inpatient (IN) ==
[2018-04-06] MEDS ORDERED: SODIUM CHLORIDE 0.9% 500 ML IV STA (14:41)
[2018-04-06 16:40] LABS: Basophils # 0.1 10*3/uL (0.0-0.2); Basophils % 1.3 % (0.0-0.8); Eosinophils # 0.1 10*3/uL (0.0-0.87); Eosinophils % 2.5 % (0.00-10.9); Hematocrit 36.7 VOL% (42.0-52.0); Hemoglobin 12.3 GM/DL (14.0-18.0); Immature Granulocytes % 0.3 %; Immature Granulocytes Absolute 0.01 #; Lymphocytes # 0.7 10*3/uL (1.4-4.0); Lymphocytes % 17.6 % (21.2-54.2); Mean Corpuscular HGB Conc 33.5 GM/DL (32-36); Mean Corpuscular Hemoglobin 29 PG (27-34); Mean Corpuscular Volume 87.2 FL (87-102); Mean Platelet Volume 8.9 FL (9.6-12.0); Monocytes # 0.5 10*3/uL (0.11-0.8); Monocytes % 12.3 % (1.7-12.7); Neutrophils # 2.6 10*3/uL (1.4-7.4); Red Blood Count 4.21 MC/CUMM (3.8-5.5)
[2018-04-06 16:41] LABS: Platelet Count 96 T/CUMM (130-400)
[2018-04-06 16:48] LABS: INR 1.5; PT Patient Result 16.3 SECS; Partial Thromboplastin Time 32.8 SECS (0-40)
[2018-04-06 16:56] LABS: Ammonia 97 UMOL/L (11-32)
[2018-04-06 16:59] LABS: Alanine Aminotransferase 27 U/L (16-61); Albumin 2.4 G/DL (3.4-5.0); Alkaline Phosphatase 113 U/L (45-117); Aspartate Amino Transferase 98 U/L (0-37); Blood Urea Nitrogen 20 MG/DL (7-18); Calcium 9.5 MG/DL (8.5-10.1); Free T4 (Free Thyroxine) 1.29 NG/DL (0.76-1.46); Glucose 126 MG/DL (74-106); Osmolality,Calculated 287.1 MOS/KG (273-304); Sodium 142 MMOL/L (136-145); Total Protein 7.1 G/DL (6.4-8.3)
[2018-04-06 17:04] LABS: Platelet Estimate Decreased
[2018-04-06 17:11] LABS: Troponin I 0.063 NG/ML (0.00-0.045)
[2018-04-06] MEDS ORDERED: POTASSIUM BICARB EFFERVESCENT 25 MEQ TABLET PO ONE (17:12)
[2018-04-06] MEDS ORDERED: ONDANSETRON 4 MG/2 ML VIAL IV PRN (17:18)
[2018-04-06] MEDS: DEXTROSE 5% NACL 0.45% 1,000 ML IV SCH (18:27)
[2018-04-06] MEDS: LACTULOSE 160 GM/240 ML BOTTLE RECTAL SCH (20:06)
[2018-04-06] MEDS: POTASSIUM CHLORIDE RIDER 10 MEQ in PREMIX 1 EACH IV PRN ×4 (20:06→23:43)
[2018-04-07 00:10] LABS: Apearance,Urine Slightly Hazy (Clear); Bilirubin,Urine Negative (Negative); Blood, Urine Negative (Negative); Glucose,Urine (UA) Negative (Negative); Granular Casts,Urine 11 /LPF (0-1); Ketones,Urine Negative (Negative); Nitrite,Urine Negative (Negative); Protein,Urine Negative; RBC,Urine 3 /HPF (0-4); Transitional Epi Cells,Urine Moderate /HPF (<1); Urine Color Yellow (Yellow); Urine Specific Gravity 1.012 (1.001-1.035); Urine Urobilinogen < 2.0 EU/DL (0.2-1.0); WBC,Urine 7 /HPF (0-6)
[2018-04-07] MEDS: POTASSIUM CHLORIDE RIDER 10 MEQ in PREMIX 1 EACH IV PRN (01:19)
[2018-04-07] MEDS: LACTULOSE 160 GM/240 ML BOTTLE RECTAL SCH ×4 (02:15→21:06)
[2018-04-07] MEDS: DEXTROSE 5% NACL 0.45% 1,000 ML IV SCH ×3 (02:28→18:18)
[2018-04-07] MEDS ORDERED: NITROGLYCERIN SL 0.4 MG TABLET SL PRN (08:19)
[2018-04-07 08:29] LABS: Ammonia 93 UMOL/L (11-32)
[2018-04-07] MEDS ORDERED: [UNRECOGNIZED DRUG - OTHER] PO SCH (09:00)
[2018-04-07] MEDS: LACTOBACILLUS ACIDOPHILUS/BULGARICUS CAPLET PO SCH (09:15)
[2018-04-07] MEDS: metOLazone 2.5 MG TABLET PO SCH (09:16)
[2018-04-07] MEDS: MULTIVITAMIN (CENTRUM) TABLET PO SCH (09:16)
[2018-04-07] MEDS: MAGNESIUM OXIDE 400 MG TABLET PO SCH (09:16)
[2018-04-07] MEDS: METOPROLOL TARTRATE 25 MG TABLET PO SCH ×2 (09:16→21:06)
[2018-04-07] MEDS: BUMETANIDE 1 MG TABLET PO SCH (09:21)
[2018-04-07] MEDS: TAMSULOSIN 0.4 MG CAPSULE PO SCH ×2 (09:21→21:06)
[2018-04-07] MEDS: ASCORBIC ACID 500 MG TABLET PO SCH (09:21)
[2018-04-07] MEDS: RIFAXIMIN 550 MG TABLET PO SCH ×2 (09:21→21:06)
[2018-04-07] MEDS: PANTOPRAZOLE 40 MG VIAL IV SCH (09:27)
[2018-04-07] MEDS ORDERED: POTASSIUM CHLORIDE INJ 50 MEQ in SODIUM CHLORIDE 0.9% 500 ML IV ONE (10:00)
[2018-04-07] MEDS ORDERED: VANCOMYCIN INJ 2,000 MG in SODIUM CHLORIDE 0.9% 500 ML IV ONE (10:30)
[2018-04-07] MEDS: SUCRALFATE 1 GM TABLET PO SCH ×2 (15:24→17:42)
[2018-04-07] MEDS: INSULIN LISPRO 100 UNIT/ML SUBCUT SCH ×3 (16:04→23:23)
[2018-04-07 16:09] LABS: Apearance,Urine CLEAR (Clear); Bilirubin,Urine Negative (Negative); Blood, Urine Moderate mg/dL (Negative); Glucose,Urine (UA) Negative (Negative); Ketones,Urine Negative (Negative); Mucus,Urine Occasional /LPF (Occasional); Nitrite,Urine Negative (Negative); Protein,Urine Negative; RBC,Urine 18 /HPF (0-4); Squamous Epithelial Cell,Urine Occasional /HPF (0-10); Urine Color Straw (Yellow); Urine Specific Gravity 1.005 (1.001-1.035); Urine Urobilinogen < 2.0 EU/DL (0.2-1.0); WBC,Urine 5 /HPF (0-6)
[2018-04-08] MEDS: DEXTROSE 5% NACL 0.45% 1,000 ML IV SCH ×4 (03:54→21:12)
[2018-04-08] MEDS: LACTULOSE 160 GM/240 ML BOTTLE RECTAL SCH (03:54)
[2018-04-08] MEDS ORDERED: VANCOMYCIN INJ 1,500 MG in SODIUM CHLORIDE 0.9% 500 ML IV SCH (06:00)
[2018-04-08] MEDS ORDERED: GLUCAGON 1 MG VIAL IM PRN (08:28)
[2018-04-08] MEDS ORDERED: DEXTROSE 50% 25 GM/50 ML VIAL IV PRN (08:28)
[2018-04-08] MEDS: INSULIN LISPRO 100 UNIT/ML SUBCUT SCH ×4 (09:05→21:13)
[2018-04-08] MEDS: PANTOPRAZOLE 40 MG VIAL IV SCH (09:08)
[2018-04-08] MEDS: RIFAXIMIN 550 MG TABLET PO SCH ×2 (09:12→21:12)
[2018-04-08] MEDS: MAGNESIUM OXIDE 400 MG TABLET PO SCH (09:13)
[2018-04-08] MEDS: SUCRALFATE 1 GM TABLET PO SCH ×3 (09:13→16:39)
[2018-04-08] MEDS: BUMETANIDE 1 MG TABLET PO SCH (09:13)
[2018-04-08] MEDS: MULTIVITAMIN (CENTRUM) TABLET PO SCH (09:13)
[2018-04-08] MEDS: LACTOBACILLUS ACIDOPHILUS/BULGARICUS CAPLET PO SCH (09:13)
[2018-04-08] MEDS: TAMSULOSIN 0.4 MG CAPSULE PO SCH ×2 (09:14→21:13)
[2018-04-08] MEDS: METOPROLOL TARTRATE 25 MG TABLET PO SCH ×2 (09:14→21:13)
[2018-04-08] MEDS: ASCORBIC ACID 500 MG TABLET PO SCH (09:14)
[2018-04-08] MEDS: LACTULOSE 20 GM/30 ML UDCUP PO SCH ×3 (10:03→21:13)
[2018-04-08] MEDS: MENTHOL/ZINC OXIDE OINT 71 GM JAR TOP SCH ×2 (15:02→21:13)
[2018-04-08] MEDS: BACITRACIN OINT 0.9 GM PACK TOP SCH (15:02)
[2018-04-09] MEDS: DEXTROSE 5% NACL 0.45% 1,000 ML IV SCH ×2 (04:18→16:47)
[2018-04-09] MEDS: LACTULOSE 20 GM/30 ML UDCUP PO SCH ×3 (04:23→21:20)
[2018-04-09 05:58] LABS: Albumin 2.1 G/DL (3.4-5.0); Bilirubin,Direct 0.79 MG/DL (0.0-0.20); Bilirubin,Indirect 1.4 MG/DL (0.0-1.0); Bilirubin,Total 2.2 MG/DL (0.2-1.0); Calcium 8.3 MG/DL (8.5-10.1); Osmolality,Calculated 270.1 MOS/KG (273-304); Total Protein 6.3 G/DL (6.4-8.3)
[2018-04-09] MEDS: POTASSIUM CHLORIDE RIDER 10 MEQ in PREMIX 1 EACH IV PRN ×3 (07:01→23:05)
[2018-04-09] MEDS ORDERED: POTASSIUM CHLORIDE INJ 50 MEQ in SODIUM CHLORIDE 0.9% 500 ML IV ONE (07:30)
[2018-04-09] MEDS: INSULIN LISPRO 100 UNIT/ML SUBCUT SCH ×4 (07:32→21:20)
[2018-04-09] MEDS: RIFAXIMIN 550 MG TABLET PO SCH ×2 (08:32→21:19)
[2018-04-09] MEDS: SUCRALFATE 1 GM TABLET PO SCH ×3 (08:32→16:47)
[2018-04-09] MEDS: MULTIVITAMIN (CENTRUM) TABLET PO SCH (08:32)
[2018-04-09] MEDS: metOLazone 2.5 MG TABLET PO SCH (08:32)
[2018-04-09] MEDS: TAMSULOSIN 0.4 MG CAPSULE PO SCH ×2 (08:32→21:19)
[2018-04-09] MEDS: MAGNESIUM OXIDE 400 MG TABLET PO SCH (08:32)
[2018-04-09] MEDS: ASCORBIC ACID 500 MG TABLET PO SCH (08:32)
[2018-04-09] MEDS: PANTOPRAZOLE 40 MG VIAL IV SCH (08:32)
[2018-04-09] MEDS: BACITRACIN OINT 0.9 GM PACK TOP SCH (08:32)
[2018-04-09] MEDS: METOPROLOL TARTRATE 25 MG TABLET PO SCH ×2 (08:32→21:19)
[2018-04-09] MEDS: LACTOBACILLUS ACIDOPHILUS/BULGARICUS CAPLET PO SCH (08:32)
[2018-04-09] MEDS: BUMETANIDE 1 MG TABLET PO SCH (08:32)
[2018-04-09] MEDS: MENTHOL/ZINC OXIDE OINT 71 GM JAR TOP SCH ×2 (08:44→21:21)
[2018-04-10] MEDS: POTASSIUM CHLORIDE RIDER 10 MEQ in PREMIX 1 EACH IV PRN ×8 (00:07→23:36)
[2018-04-10] MEDS: DEXTROSE 5% NACL 0.45% 1,000 ML IV SCH ×2 (04:09→14:41)
[2018-04-10 06:43] LABS: Calcium 8.2 MG/DL (8.5-10.1); Osmolality,Calculated 274.8 MOS/KG (273-304)
[2018-04-10 06:47] LABS: Potassium 2.1 MMOL/L (3.5-5.1)
[2018-04-10] MEDS: INSULIN LISPRO 100 UNIT/ML SUBCUT SCH ×4 (07:22→21:25)
[2018-04-10] MEDS: MULTIVITAMIN (CENTRUM) TABLET PO SCH (08:44)
[2018-04-10] MEDS: RIFAXIMIN 550 MG TABLET PO SCH ×2 (08:44→21:24)
[2018-04-10] MEDS: METOPROLOL TARTRATE 25 MG TABLET PO SCH ×2 (08:44→21:24)
[2018-04-10] MEDS: TAMSULOSIN 0.4 MG CAPSULE PO SCH ×2 (08:44→21:24)
[2018-04-10] MEDS: SUCRALFATE 1 GM TABLET PO SCH ×3 (08:44→16:00)
[2018-04-10] MEDS: BUMETANIDE 1 MG TABLET PO SCH (08:44)
[2018-04-10] MEDS: MAGNESIUM OXIDE 400 MG TABLET PO SCH (08:44)
[2018-04-10] MEDS: ASCORBIC ACID 500 MG TABLET PO SCH (08:44)
[2018-04-10] MEDS: LACTOBACILLUS ACIDOPHILUS/BULGARICUS CAPLET PO SCH (08:44)
[2018-04-10] MEDS: BACITRACIN OINT 0.9 GM PACK TOP SCH (08:44)
[2018-04-10] MEDS: PANTOPRAZOLE 40 MG VIAL IV SCH (08:45)
[2018-04-10] MEDS: MENTHOL/ZINC OXIDE OINT 71 GM JAR TOP SCH ×2 (08:45→21:25)
[2018-04-10] MEDS ORDERED: MAGNESIUM SULF RIDER 4 GM in PREMIX 1 EACH IV PRN (08:53)
[2018-04-10] MEDS: MAGNESIUM SULF RIDER 2 GM in PREMIX 1 EACH IV PRN (09:25)
[2018-04-10] MEDS ORDERED: POTASSIUM CHLORIDE INJ 50 MEQ in SODIUM CHLORIDE 0.9% 500 ML IV ONE (09:30)
[2018-04-10] MEDS ORDERED: VANCOMYCIN INJ 2,000 MG in SODIUM CHLORIDE 0.9% 500 ML IV ONE (15:00)
[2018-04-11] MEDS: POTASSIUM CHLORIDE RIDER 10 MEQ in PREMIX 1 EACH IV PRN ×4 (00:31→15:25)
[2018-04-11] MEDS: DEXTROSE 5% NACL 0.45% 1,000 ML IV SCH (02:46)
[2018-04-11] MEDS: SUCRALFATE 1 GM TABLET PO SCH ×3 (06:51→17:00)
[2018-04-11] MEDS ORDERED: POTASSIUM BICARB EFFERVESCENT 25 MEQ TABLET PO SCH (09:00)
[2018-04-11] MEDS ORDERED: POTASSIUM CHLORIDE INJ 50 MEQ in SODIUM CHLORIDE 0.9% 500 ML IV ONE (09:00)
[2018-04-11] MEDS: BACITRACIN OINT 0.9 GM PACK TOP SCH (09:58)
[2018-04-11] MEDS: BUMETANIDE 1 MG TABLET PO SCH (09:58)
[2018-04-11] MEDS: TAMSULOSIN 0.4 MG CAPSULE PO SCH (09:58)
[2018-04-11] MEDS: PANTOPRAZOLE 40 MG VIAL IV SCH (09:58)
[2018-04-11] MEDS: ASCORBIC ACID 500 MG TABLET PO SCH (09:58)
[2018-04-11] MEDS: metOLazone 2.5 MG TABLET PO SCH (09:59)
[2018-04-11] MEDS: MULTIVITAMIN (CENTRUM) TABLET PO SCH (09:59)
[2018-04-11] MEDS: METOPROLOL TARTRATE 25 MG TABLET PO SCH (09:59)
[2018-04-11] MEDS: LACTOBACILLUS ACIDOPHILUS/BULGARICUS CAPLET PO SCH (09:59)
[2018-04-11] MEDS: INSULIN LISPRO 100 UNIT/ML SUBCUT SCH ×3 (10:00→17:00)
[2018-04-11] MEDS ORDERED: MAGNESIUM SULF RIDER 2 GM in PREMIX 1 EACH IV ONE (10:00)
[2018-04-11] MEDS: MENTHOL/ZINC OXIDE OINT 71 GM JAR TOP SCH (10:00)
[2018-04-11] MEDS: MAGNESIUM OXIDE 400 MG TABLET PO SCH (10:01)
[2018-04-11] MEDS: RIFAXIMIN 550 MG TABLET PO SCH (10:14)
[2018-04-11] MEDS ORDERED: VANCOMYCIN INJ 1,500 MG in SODIUM CHLORIDE 0.9% 500 ML IV SCH (15:00)
[2018-04-11] MEDS: MAGNESIUM SULF RIDER 2 GM in PREMIX 1 EACH IV PRN (16:51)
[2018-04-11 16:55] VITALS: BP 117/63
== END 2018-04-11 18:10 | DRG 871 ==
LOC: EDBD → EDUNIT# → N.ED 14:31 → N.2E 17:17
PROVIDERS: ADMIT Family Medicine; ATTEND Family Medicine